=== PATIENT | female | born 1940 | race Caucasian/White ===

== ENCOUNTER 2018-07-30 18:30 | Inpatient (IN) | payer MEDICARE, BC ==
[2018-07-30] MEDS ORDERED: Budesonide 0.5 MG/2 ML Neb Susp NEB ONE (18:52)
[2018-07-30] MEDS ORDERED: Albuterol/Ipratropium 3.0-0.5 MG/3 ML Neb Soln NEB ONE (18:52)
--- NOTE | 2018-07-30 18:52 | EDM.PDOC ---
ED HPI GENERAL MEDICAL PROBLEM - General Chief Complaint: General Stated Complaint: fever, chills, cough, immunosupressed Time Seen by Provider: 07/30/18 18:45 Source of Information: Reports: Patient, Old Records ([facility] chart/EMR), Other ([facility], Family friend Christen) History Limitations: Reports: No Limitations - History of Present Illness INITIAL COMMENTS - FREE TEXT/NARRATIVE: Patient was brought to the emergency room via private automobile by her friend for evaluation of progressive nonspecific fatigue, weakness, fever and chills over the last couple of days. Patient is currently under therapy for multiple myeloma and did receive a Zometa infusion 2 days ago at [facility] in [place]. The patient denies any known exposure to infection, recent use of antipyretic medication, etc. She did receive her influenza booster this season. The patient denies any chest pain/pressure, heart flutter, dizziness, orthostasis, orthopnea, diaphoresis, paresthesias, recent decreased exercise tolerance, or any other anginal-type symptoms. No recent history of abdominal pain, heartburn, diarrhea, melena, gross hematochezia, or any food intolerance, including fatty foods, etc. with normal bowel movement yesterday. The patient did have 3 episodes of small emesis yesterday with no current nausea, however. She denies any gross hematuria, colic, or other UTI symptoms. The patient has had a nonproductive cough over the last few days with no history of significant dyspnea, wheezing, distress, etc.. She does complain of non-specific left 3/10 shoulder pain with no history of injury, etc. Onset: Gradual Onset Date: 07/30/18 Onset Time: 20:00 Duration: Getting Worse Location: Reports: Upper Extremity, Left (As above). Denies: Head, Face, Neck, Chest, Abdomen, Back, Pelvis, Upper Extremity, Right, Lower Extremity, Left, Lower Extremity, Right, Generalized, Radiates to Quality: Reports: Ache, Same as Previous Episode Severity: Mild Improves with: Reports: Rest Worsens with: Reports: Movement Context: Reports: Other (As above). Denies: Sick Contact, Trauma Associated Symptoms: Reports: Cough, Fever/Chills, Nausea/Vomiting, Weakness ( As above). 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) Left Shoulder Pain Score (Numeric/FACES): 3 - Related Data Allergies Allergy/AdvReac Type Severity Reaction Status Date / Time No Known Allergies Allergy Verified 07/30/18 18:53 Home Meds: Home Meds Calcium Carbonate/Vitamin D3 [Calcium 600-Vit D3 400 Tablet] 2 tab PO QAM [History] Fluticasone/Salmeterol [Advair 100-50] 1 puff INH BID 09/01/14 [History] Calcium Carbonate [Tums Extra Strength] 1,500 mg PO BEDTIME PRN 09/02/14 [ History] Latanoprost [Xalatan 0.005% Ophth Soln] 1 drop EYELF BEDTIME 04/26/16 [History] Multivitamins [Tab-A-Johnnie] 1 tab PO DAILY 04/26/16 [History] Pantoprazole [ProTONIX] 40 mg PO DAILY 04/26/16 [History] Acyclovir 1 tab PO BID 07/30/18 [History] Albuterol Sulfate [Proventil Hfa] 1 puff INH Q4H PRN 07/30/18 [History] Albuterol/Ipratropium [DuoNeb 3.0-0.5 MG/3 ML] 1 vial INH Q4H PRN 07/30/18 [ History] Aspirin 325 mg PO DAILY 07/30/18 [History] Cholecalciferol (Vitamin D3) [Vitamin D3] 2,000 mg PO DAILY 07/30/18 [History] Ketorolac [Acular 0.5% Ophth Soln] 1 drop EYELF TID 07/30/18 [History] Lenalidomide [Revlimid] 10 mg PO DAILY 07/30/18 [History] Penicillin V Potassium 500 mg PO BID 07/30/18 [History] Prednisolone Acetate/Pf [Prednisolone Acet 1% Eye Drop] 1 drop EYELF TID [History] Timolol Maleate [Timoptic 0.25% Ophth Soln] 1 drop EYELF DAILY 07/30/18 [History ] Past Medical History HEENT History: Reports: Cataract, Glaucoma, Impaired Vision, Other (See Below). Denies: Allergic Rhinitis, Hard of Hearing, Macular Degeneration, Retinal Detachment Other HEENT History: She wears glasses. Cardiovascular History: Denies: Afib, Aneurysm, Arrhythmia, Blood Clots/VTE/DVT , CAD, Heart Failure, Heart Murmur, High Cholesterol, Hypertension, RI, Syncope Respiratory History: Reports: Bronchitis, Recurrent, COPD, Intubation, Previous , Pneumonia, Recurrent. Denies: Asthma, Intubation, Difficult, PE, Pneumothorax , Pulmonary Fibrosis, Sleep Apnea, TB Gastrointestinal History: Reports: Chronic Diarrhea, Colon Polyp, Diverticulosis , GERD, Other (See Below). Denies: Bowel Obstruction, Celiac Disease, Cholelithiasis, Chronic Constipation, Fecal Incontinence, GI Bleed, Hepatitis, Inflammatory Bowel Disease, Irritable Bowel Syndrome, Jaundice, Pancreatitis Other Gastrointestinal History: Sigmoid diverticulosis. Recurrent benign rectal polyps in the rectal area. LFTs elevation of unknown etiology. Genitourinary History: Reports: None. 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 Denies: Dysfunctional Uterine Bleeding, Endometriosis, Spontaneous : 3 Para: 3 LMP (Approximate): Other (See Below) Other PRIVATE INQUIRY AGENT History: Menopause at about age 51. Full term without complications during pregnancies or deliveries Musculoskeletal History: Reports: Arthritis, Back Pain, Chronic, Neck Pain, Chronic, Osteoarthritis, Osteoporosis. Denies: Fracture, Gout, RA, SLE Neurological History: Reports: None. Denies: Cerebral Aneurysms, Concussion, CVA, Headaches, Chronic, Head Trauma, Migraines, MS, Neuropathy, Peripheral, Parkinson's, Seizure, TIA Psychiatric History: Reports: None. Denies: Abuse, Victim of, ADD, ADHD, Anxiety, Depression, Psych Hospitalization(s), PTSD, Suicide Attempt, Suicidal Ideation Endocrine/Metabolic History: Reports: Osteopenia, Osteoporosis, Other (See Below ). Denies: Diabetes, Gestational, Diabetes, Type I, Diabetes, Type II, Diabetes Mellitus, Type 3c, Hypothyroidism, IDDM Other Endocrine/Metabolic History: Hypokalemia. Hyponatremia. Hypoalbuminemia. Hematologic History: Reports: Other (See Below). Denies: Anemia, Blood Transfusion(s), Iron Deficiency Other Hematologic History: Thrombocytopenia. Immunologic History: Reports: Immunosuppression, Other (See Below). Denies: AIDS, HIV, SLE Other Immunologic History: Immunosuppression secondary to current chemotherapy for multiple myeloma. Oncologic (Cancer) History: Reports: Other (See Below). Denies: Basal Cell Carcinoma, Breast, Cervix, Colon, Hodgkin's Lymphoma, Leukemia, Lung, Lymphoma, Malignant Melanoma, Non-Hodgkin's Lymphoma, Ovarian, Squamous Cell Carcinoma, Uterine Other Oncologic History: Multiple myeloma diagnosed in May 2016. Dermatologic History: Reports: None. Denies: Eczema, Psoriasis - Infectious Disease History Infectious Disease History: Reports: Chicken Pox, Influenza (Influenza in September 2017.), Measles, Mumps, Rubella. Denies: C-Difficile, Meningitis, Mononucleosis , MRSA, Pertussis (Whooping Cough), Rheumatic Fever, Scarlet Fever, Shingles, TB , VRE - Past Surgical History Head Surgeries/Procedures: Reports: None HEENT Surgical History: Reports: Cataract Surgery, Eye Surgery, Oral Surgery, Other (See Below). Denies: Adenoidectomy, Laser Surgery, LASIK, Naso-Sinus Surgery, Tonsillectomy Other HEENT Surgeries/Procedures: Bilateral cataract and glaucoma surgery with right eye on 06/25/18 in the left eye on 07/09/18. Multiple teeth extractions. Cardiovascular Surgical History: Reports: None. Denies: Varicose Respiratory Surgical History: Reports: Other (See Below). Denies: Thoracentesis Other Respiratory Surgeries/Procedures: Right-sided bronchoscopy on 04/09/18. GI Surgical History: Reports: Colonoscopy, EGD, Polypectomy, Other (See Below). Denies: Appendectomy, Cholecystectomy, Hernia, Abdominal, Hernia, Inguinal, Hernia Repair/Other Other GI Surgeries/Procedures: Rectal polypectomy on 09/02/14 and 04/26/16 with EGD and colonoscopy on those days. Previous colonoscopy on 01/11/05. Possible sigmoidoscopy on 11/06/1999 Female Surgical History: Reports: Tubal Ligation, Other (See Below). Denies : Section, D&C, Hysterectomy, Oophorectomy, Salpingo-Oophorectomy Other Female Surgeries/Procedures: Bilateral tubal ligation in 1979 no other female surgeries Endocrine Surgical History: Reports: None. Denies: Thyroid Biopsy Neurological Surgical History: Reports: None. Denies: C-Spine, Discectomy, Laminectomy, Lumbar Spine, Sacral Spine, Spinal Fusion, Thoracic Spine, Vertebroplasty Musculoskeletal Surgical History: Reports: Arthroscopic Procedure, Shoulder Surgery. Denies: Carpal Tunnel, Ganglion Cyst, Joint Replacement, ORIF, Shoulder Replacement Oncologic Surgical History: Reports: None Dermatological Surgical History: Reports: None - Past Imaging History Past Imaging History: Reports: CAT Scan (CT of the chest on 06/06/18 and 03/27/18. ), DEXA Scan (01/02/13), Mammogram (Last mammogram on 03/01/17.), PET (Whole body PET scan on 03/18/17.), PFT (06/06/18.), Ultrasound (Left breast ultrasound on ), Venous Doppler (Left leg on 08/05/17.) Social & Family History - Family History HEENT: Reports: Glaucoma, Macular Degeneration, Other (See Below). Denies: Retinal Detachment Other HEENT Family History: Sister with glaucoma. Sisters 2 with macular degeneration. Cardiac: Reports: High Cholesterol, Other (See Below). Denies: Afib, Aneurysm, Arrhythmia, Blood Clots/VTE/DVT, CAD, Heart Failure, Hypertension, RI, PVD/COD, Syncope Other Cardiac Family History: Sisters 2 with hyperlipidemia. Respiratory: Reports: COPD, Other (See Below). Denies: Asthma, PE, Pneumothorax , Sleep Apnea Other Respiratory Family Hisory: Mother with history of COPD and tobacco use GI: Reports: None, Colon Polyps. Denies: Celiac Disease, Cholelithiasis, GI bleed, Inflammatory Bowel Disease, Irritable Bowel Syndrome, PUD : Reports: None. Denies: Renal Calculus, Renal Disease/Insufficiency OBGYN: Reports: None. Denies: Endometriosis, Fibroids, Recurrent Spontaneous Musculoskeletal: Reports: None. Denies: Gout, RA, SLE Neurological: Reports: Migraines, Other (See Below). Denies: Alzheimers Disease , Cerebral Aneurysms, CVA, Dementia, MS, Parkinson's, Seizure, TIA Other Neurological Family History: Sister with migraines. Psychiatric: Reports: None. Denies: Abuse, Victim of, ADD, ADHD, Anxiety, Depression, Psych Hospitalization(s), Psychosis, Suicide Attempt Endocrine/Metabolic: Reports: None. Denies: Diabetes, Gestational, Diabetes, Type I, Diabetes, type II, Diabetes Mellitus, Type 3c, Hypothyroidism, IDDM Hematologic: Reports: None. Denies: Anemia, SLE Immunologic: Reports: None. Denies: AIDS, HIV, SLE Dermatologic: Reports: None. Denies: Eczema, Psoriasis Oncologic: Reports: Colon, Leukemia, Liver, Other (See Below). Denies: Breast, Cervix, Hodgkin's Lymphoma, Lymphoma, Non-Hodgkin's Lymphoma, Ovarian, Skin, Uterine Other Oncologic Family History: Mother with colon cancer however fatal leukemia at age 65. Mother with fatal liver cancer at age 78. - Tobacco Use Smoking Status *Q: Never Smoker Tobacco Use Within Last Twelve Months: No Used Tobacco, but Quit: No Smoking Cessation Information Provided To Patient: No Second Hand Smoke Exposure: No Second Hand Smoke Education Provided: No - Caffeine Use Caffeine Use: Reports: Coffee (2 cups per day). Denies: Energy Drinks, Soda, Tea - Alcohol Use Alcohol Use History: Yes Days Per Week of Alcohol Use: 0 Number of Drinks Per Day: 1 Number of Drinks Per Day Comment: One glass of wine usually for holidays and special occasions. No previous DWIs, problems with alcohol abuse, etc. Total Drinks Per Week: 0 Alcohol Use in Last Twelve Months: Yes Alcohol Use Frequency: Rarely - Recreational Drug Use Recreational Drug Use: No Drug Use in Last 12 Months: No Recreational Drug Type: Denies: Amphetamines (Speed), Cocaine, Heroin, Inhalants (Glues, Solvents, Aerosols), LSD (Acid), Marijuana/Hashish, Methamphetamine, Morphine, Oxycodone - Living Situation & Occupation Living situation: Reports: (1960, 3 children.), with Family () Occupation: Employed (Retired [employer]) ED ROS GENERAL - Review of Systems Review Of Systems: ROS reveals no pertinent complaints other than HPI. ED EXAM, GENERAL - Physical Exam Exam: See Below Exam Limited By: No Limitations General Appearance: Alert, WD/WN, No Apparent Distress Eye Exam: Bilateral Eye: EOMI, Normal Inspection (No nystagmus), PERRL Ears: Normal External Exam, Normal Canal, Hearing Grossly Normal, Normal TMs Nose: Normal Mucosa, No Blood, Clear Rhinorrhea (Mild bilateral) Throat/Mouth: Normal Lips, Normal Gums, Normal Voice, No Airway Compromise. No : Normal Teeth (Multiple missing teeth lowers with no acute infection or caries) , Normal Oropharynx (Trace erythema in the posterior pharynx), Dysphagia, Perioral Cyanosis Head: Atraumatic, Normocephalic. No: Facial Swelling, Facial Tenderness, Sinus Tenderness Neck: Supple, Non-Tender, Full Range of Motion, Carotid Bruit (Mild bilateral carotid bruits). No: Lymphadenopathy (L), Lymphadenopathy (R), Thyromegaly Respiratory/Chest: No Respiratory Distress, No Accessory Muscle Use, Chest Non- Tender, Rales (Mild diffuse Diffuse bilateral rales particularly on the basis). No: Rhonchi, Wheezing, Pleural Rub, Retractions Cardiovascular: Normal Peripheral Pulses, Regular Rate, Rhythm, No Edema, No Gallop, No JVD, No Murmur, No Rub. No: Gallop/S3, Gallop/S4, Friction Rub Peripheral Pulses: 2+: Radial (L), Radial (R), Dorsalis Pedis (L), Dorsalis Pedis (R) GI/Abdominal: Normal Bowel Sounds, Soft, Non-Tender, No Organomegaly, No Distention, No Abnormal Bruit, No Mass, Pelvis Stable. No: Guarding (Female) Exam: Deferred Rectal (Female) Exam: Deferred Back Exam: Full Range of Motion, Other (Mild kyphosis). No: CVA Tenderness (L) , CVA Tenderness (R), Muscle Spasm Extremities: Normal Inspection, Normal Range of Motion, Non-Tender, No Pedal Edema, Normal Capillary Refill. No: Nelly's Sign Neurological: Alert, Oriented, CN II-XII Intact, Normal Cognition, Normal Gait, Normal Reflexes (Negative Babinski's), No Motor/Sensory Deficits Psychiatric: Normal Affect, Normal Mood Skin Exam: Warm, Dry, Intact, Normal Color, No Rash. No: Diaphoretic, Wound/ Incision Lymphatic: No Adenopathy EKG INTERPRETATION EKG Date: 07/30/18 Time: 20:02 Rhythm: NSR Rate (Beats/Min): 85 [place]: Normal (Cardiac axisleft) P-Wave: Enlarged (Moderate Diffuse biphasic P waves with resolution of previous mild pulmonary hypertension by EKG) QRS: Normal (0.09 seconds with new T-wave inversion in lead V1) ST-T: Normal QT: Normal [place]/PQ Interval: 0.18 seconds Comparison: Change From Previous EKG (As above since 01/02/05) EKG Interpretation Comments: 1. No acute ischemic changes 2. Left atrial enlargement Course - Vital Signs Last Recorded V/S: Last Vital Signs Temp 39.0 C H 07/30/18 19:30 Pulse 86 07/30/18 18:36 Resp 24 H 07/30/18 20:15 BP 133/56 L 07/30/18 20:15 Pulse Ox 97 07/30/18 20:15 Vital Signs - 24 hr 07/30/18 07/30/18 07/30/18 18:35 18:36 18:45 Temperature [ 37.6 C Oral] Temperature [ Temporal] Pulse, 86 Peripheral [ Brachial] Respiratory 20 27 H Rate Blood Pressure 157/56 H 134/47 L [Upper Arm] O2 Sat by Pulse 89 L 95 Oximetry O2 Sat by Pulse 95 Oximetry [ Nasal Cannula] 07/30/18 07/30/18 07/30/18 18:53 19:00 19:15 Temperature [ Oral] Temperature [ Temporal] Pulse, Peripheral [ Brachial] Respiratory 22 H 23 H Rate Blood Pressure 127/46 L 113/60 [Upper Arm] O2 Sat by Pulse 94 L 95 Oximetry O2 Sat by Pulse 94 L Oximetry [ Nasal Cannula] 07/30/18 07/30/18 07/30/18 19:30 19:45 20:00 Temperature [ Oral] Temperature [ 39.0 C H Temporal] Pulse, Peripheral [ Brachial] Respiratory 26 H 24 H 25 H Rate Blood Pressure 124/43 L 134/50 L 135/53 L [Upper Arm] O2 Sat by Pulse 95 94 L 97 Oximetry O2 Sat by Pulse Oximetry [ Nasal Cannula] 07/30/18 20:15 Temperature [ Oral] Temperature [ Temporal] Pulse, Peripheral [ Brachial] Respiratory 24 H Rate Blood Pressure 133/56 L [Upper Arm] O2 Sat by Pulse 97 Oximetry O2 Sat by Pulse Oximetry [ Nasal Cannula] - Orders/Labs/Meds Orders: Active Orders 24 hr Category Date Time Status Cardiac Monitoring [RC] CONTINUOUS Care 07/30/18 18:53 Active Communication Order [RC] ROUTINE Care 07/30/18 18:53 Active EKG Documentation Completion [RC] ASDIRECTED Care 07/30/18 20:00 Active Oxygen Therapy, ED [RC] CONTINUOUS Care 07/30/18 18:53 Active Peripheral IV Care [RC] . DIRECTED Care 07/30/18 18:54 Active Pulse Oximetry [RC] CONTINUOUS Care 07/30/18 18:53 Active Up With Assistance [RC] ASDIRECTED Care 07/30/18 18:53 Active Nothing Per Oral Diet [DIET] Diet 07/30/18 Breakfast Active Chest 2V [CR] Stat Exams 07/30/18 18:53 Taken CULTURE BLOOD [BC] Stat Lab 07/30/18 19:05 Received CULTURE BLOOD [BC] Stat Lab 07/30/18 19:35 Received CULTURE SPUTUM + SMEAR [RM] Urgent Lab 07/30/18 18:53 Ordered CULTURE STREP A CONFIRMATION [RM] Stat Lab 07/30/18 19:24 Results CULTURE URINE [RM] Routine Lab 07/30/18 18:53 Ordered STREP SCRN A RAPID W CULT CONF [RM] Stat Lab 07/30/18 19:24 Results URINALYSIS W/MICROSCOPIC [UA W/MICROSCOPIC] [URIN] Lab 07/30/18 18:57 Ordered Routine Piperacillin/Tazobactam [Zosyn] 3.375 gm Med 07/30/18 19:45 Active Sodium Chloride 0.9% [Normal Saline] 100 ml IV Q6H Sodium Chloride 0.9% [Saline Flush] Med 07/30/18 18:52 Active 10 ml FLUSH ASDIRECTED PRN Blood Culture x2 Reflex Set [OM.PC] Stat Oth 07/30/18 18:53 Ordered Obtain Past Medical Record [OM.PC] Stat Oth 07/30/18 18:53 Active Peripheral IV Insertion Adult [OM.PC] Stat Oth 07/30/18 18:53 Ordered Resuscitation Status Routine Resus Stat 07/30/18 18:52 Ordered EKG 12 Lead [EK] Stat Ther 07/30/18 20:00 Ordered Medication Orders Piperacillin Sod/Tazobactam (Sod 3.375 gm/ Sodium Chloride) 100 mls @ 200 mls/ hr IV Q6H JEFFERY Last Admin: 07/30/18 19:56 Dose: 200 mls/hr Sodium Chloride (Saline Flush) 10 ml FLUSH ASDIRECTED PRN PRN Reason: Keep Vein Open Last Admin: 07/30/18 19:56 Dose: 10 ml Labs: Laboratory Tests 07/30/18 07/30/18 07/30/18 Range/Units 19:05 19:05 19:05 WBC 1.3 L* (4.0-10.2) K/uL RBC 3.19 L (3.77-5.09) M/uL Hgb 10.7 L (11.7-15.5) g/dL Hct 31.7 L (34.0-46.0) % MCV 99.4 H D (84.0-98.0) fL MCH 33.5 H (28.2-33.3) pg MCHC 33.8 (31.7-36.0) g/dL RDW 15.6 H (11.2-14.1) % Plt Count 68 L D (150-350) K/uL Neut % (Auto) 55.2 (45.0-80.0) % Lymph % (Auto) 32.8 (10.0-50.0) % Johnson % (Auto) 12.0 (2.0-14.0) % Eos % (Auto) 0.0 (0.0-5.0) % Baso % (Auto) 0.0 (0.0-2.0) % Neut # (Auto) 0.69 L (1.40-7.00) K/uL Lymph # (Auto) 0.41 L (0.50-3.50) K/uL Johnson # (Auto) 0.15 (0.00-1.00) K/uL Eos # (Auto) 0.00 (0.00-0.50) K/uL Baso # (Auto) 0.00 (0.00-0.20) K/uL PT 12.0 (9.5-12.0) SEC INR 1.1 APTT 30.7 (21.0-31.3) SEC D-Dimer, Quantitative 349 (0-400) ng/mL Sodium (136-145) mmol/L Potassium (3.5-5.1) mmol/L Chloride (98-107) mmol/L Carbon Dioxide (21.0-32.0) mmol/L BUN (7-18) mg/dL Creatinine (0.51-1.17) mg/dL Est Cr Clr Drug Dosing mL/min Estimated GFR (MDRD) mL/min Glucose (74-106) mg/dL Lactic Acid (0.4-2.0) mmol/L Calcium (8.5-10.1) mg/dL Magnesium (1.8-2.4) mg/dL Total Bilirubin (0.2-1.0) mg/dL Direct Bilirubin (0.0-0.2) mg/dL Indirect Bilirubin AST (15-37) U/L ALT (12-78) U/L Alkaline Phosphatase (46-116) IU/L Creatine Kinase (26-308) U/L Creatine Kinase Index (0.0-2.5) % CK-MB (CK-2) (0.00-3.60) ng/mL Troponin I (0.000-0.056) ng/mL NT-Pro-B Natriuret Pep (0-125) pg/mL Total Protein (6.4-8.2) g/dL Albumin (3.4-5.0) g/dL TSH, Ultra Sensitive (0.358-3.740) mIU/mL 07/30/18 07/30/18 07/30/18 Range/Units 19:05 19:05 19:05 WBC (4.0-10.2) K/uL RBC (3.77-5.09) M/uL Hgb (11.7-15.5) g/dL Hct (34.0-46.0) % MCV (84.0-98.0) fL MCH (28.2-33.3) pg MCHC (31.7-36.0) g/dL RDW (11.2-14.1) % Plt Count (150-350) K/uL Neut % (Auto) (45.0-80.0) % Lymph % (Auto) (10.0-50.0) % Johnson % (Auto) (2.0-14.0) % Eos % (Auto) (0.0-5.0) % Baso % (Auto) (0.0-2.0) % Neut # (Auto) (1.40-7.00) K/uL Lymph # (Auto) (0.50-3.50) K/uL Johnson # (Auto) (0.00-1.00) K/uL Eos # (Auto) (0.00-0.50) K/uL Baso # (Auto) (0.00-0.20) K/uL PT (9.5-12.0) SEC INR APTT (21.0-31.3) SEC D-Dimer, Quantitative (0-400) ng/mL Sodium 134 L (136-145) mmol/L Potassium 3.7 (3.5-5.1) mmol/L Chloride 97 L (98-107) mmol/L Carbon Dioxide 25.0 (21.0-32.0) mmol/L BUN 16 (7-18) mg/dL Creatinine 0.98 (0.51-1.17) mg/dL Est Cr Clr Drug Dosing 40.40 mL/min Estimated GFR (MDRD) 55 mL/min Glucose 121 H (74-106) mg/dL Lactic Acid 1.9 (0.4-2.0) mmol/L Calcium 8.7 (8.5-10.1) mg/dL Magnesium 1.3 L (1.8-2.4) mg/dL Total Bilirubin 1.4 H 1.4 H (0.2-1.0) mg/dL Direct Bilirubin 0.4 H (0.0-0.2) mg/dL Indirect Bilirubin 1.0 AST 16 (15-37) U/L ALT 19 (12-78) U/L Alkaline Phosphatase 54 (46-116) IU/L Creatine Kinase 104 (26-308) U/L Creatine Kinase Index 0.5 (0.0-2.5) % CK-MB (CK-2) 0.50 (0.00-3.60) ng/mL Troponin I 0.002 (0.000-0.056) ng/mL NT-Pro-B Natriuret Pep 4171 H (0-125) pg/mL Total Protein 7.2 (6.4-8.2) g/dL Albumin 3.3 L (3.4-5.0) g/dL TSH, Ultra Sensitive 0.931 (0.358-3.740) mIU/mL Blood cultures 2 were collected Microbiology 07/30/18 19:24 Group A Streptococcus Rapid Screen - Final Throat NEGATIVE STREP A SCREEN 07/30/18 19:24 Influenza Type A Antigen Screen - Final Nasal, Unspecified NEGATIVE INFLUENZA A VIRUS AG Influenza Type B Antigen Screen - Final NEGATIVE INFLUENZA B VIRUS AG Meds: Medications Generic Name Dose Route Start Last Admin Trade Name Freq PRN Reason Stop Dose Admin Piperacillin Sod/Tazobactam 100 mls @ 200 mls/hr 07/30/18 19:45 07/30/18 19: 56 Sod 3.375 gm/ Sodium Chloride IV 200 mls/hr Q6H JEFFERY Administration Sodium Chloride 10 ml 07/30/18 18:52 07/30/18 19:56 Saline Flush FLUSH 10 ml ASDIRECTED PRN Administration Keep Vein Open Discontinued Medications Generic Name Dose Route Start Last Admin Trade Name Luizq PRN Reason Stop Dose Admin Acetaminophen 650 mg 07/30/18 19:58 07/30/18 20:07 Tylenol PO 07/30/18 19:59 650 mg NOW ONE Administration Albuterol/Ipratropium 3 ml 07/30/18 18:52 07/30/18 19:29 Duoneb 3.0-0.5 Mg/3 Ml NEB 07/30/18 18:53 3 ml ONETIME ONE Administration Budesonide 0.5 mg 07/30/18 18:52 07/30/18 19:29 Pulmicort NEB 07/30/18 18:53 0.5 mg ONETIME ONE Administration - Radiology Interpretation Free Text/Narrative:: equipment monitor phototypesetting shows normal sinus rhythm with heart rate in the 80s with no ectopy or arrhythmia. Chest x-ray, PA and lateral, shows evidence of moderate COPD changes with probable right middle lobe, right lower lobe and left lower lobe pulmonary infiltrates versus atelectasis. Moderate osteoarthritic and osteoporotic changes in the thoracic spine with some mild kyphosis. No cardiomegaly, CHF, or pneumothorax. Moderate aortic valve calcification. Departure - Departure Time of Disposition: 20:40 Disposition: Admitted As Inpatient 67 Condition: Fair Clinical Impression: Bilateral pneumonia, COPD (chronic obstructive pulmonary disease), Leukopenia, Thrombocytopenia, Peptic reflux disease, Osteoarthritis, Hypomagnesemia, Hyponatremia, Hypoalbuminemia, CHF (congestive heart failure), Hyperbilirubinemia, Multiple myeloma, Anemia - Discharge Information *PRESCRIPTION DRUG MONITORING PROGRAM REVIEWED*: Not Applicable *COPY OF PRESCRIPTION DRUG MONITORING REPORT IN PATIENT PHYLLIS: Not Applicable Referrals: Arianna Her NP [Primary Care Provider] - Forms: ED Department Discharge Care Plan Goals: See plan - Problem List & Annotations (1) Bilateral pneumonia SNOMED Code(s): 244907880 Code(s): J18.9 - PNEUMONIA, UNSPECIFIED ORGANISM Status: Acute Priority: High Current Visit: Yes Onset Date: 07/30/18 Annotation/Comment:: Bilateral lower lobe pneumonia based on clinical exam and chest x-ray, although chest x-ray findings are somewhat borderline. Note significant leukopenia with current chemotherapy as above with Zosyn therapy initiated in the emergency room. Additional Levaquin therapy will be started shortly after admission. Blood cultures 2 were collected. Attempt to obtain a sputum specimen [place]. Neupogen to be given on admission secondary to significant leukopenia as above. Qualifiers: Pneumonia type: due to unspecified organism Lung location: lower lobe of lung Qualified Code(s): J18.1 - Lobar pneumonia, unspecified organism (2) Leukopenia SNOMED Code(s): 88739926, 321639378 Code(s): D72.819 - DECREASED WHITE BLOOD CELL COUNT, UNSPECIFIED Status: Chronic Priority: High Current Visit: Yes Onset Date: 07/30/18 Annotation/Comment:: As above. Note sepsis risk but no clinical evidence of sepsis at this time. Additional UA with culture and sensitivity has been ordered. Qualifiers: Leukopenia type: neutropenia Neutropenia type: secondary to cancer chemotherapy Qualified Code(s): D70.1 - Agranulocytosis secondary to cancer chemotherapy; T45.1X5A - Adverse effect of antineoplastic and immunosuppressive drugs, initial encounter (3) COPD (chronic obstructive pulmonary disease) SNOMED Code(s): 58273286 Code(s): J44.9 - CHRONIC OBSTRUCTIVE PULMONARY DISEASE, UNSPECIFIED Status : Chronic Priority: Medium Current Visit: Yes Annotation/Comment:: Triple nebulizer therapy given in the emergency room with aggressive nebulizer therapy during this hospitalization. Note recent PFTs on 06/06/18. Qualifiers: COPD type: COPD with acute lower respiratory infection Qualified Code(s): J44.0 - Chronic obstructive pulmonary disease with acute lower respiratory infection (4) CHF (congestive heart failure) SNOMED Code(s): 08229536 Code(s): I50.9 - HEART FAILURE, UNSPECIFIED Status: Acute Priority: High Current Visit: Yes Onset Date: 07/30/18 Annotation/Comment:: No chest pain or anginal type symptoms as above. Other than moderate BNP elevation cardiac enzymes and EKG are otherwise normal. No significant CHF by today's chest x-ray. Cardiac enzymes and EKG to be repeated in the a.m. Consider echocardiogram on an outpatient basis. Initiate low-dose Lasix therapy for now with additional IV fluids with discretion secondary to current fever, etc. Qualifiers: Heart failure type: unspecified Heart failure chronicity: acute Qualified Code(s): I50.9 - Heart failure, unspecified (5) Osteoarthritis SNOMED Code(s): 323865317 Code(s): M19.90 - UNSPECIFIED OSTEOARTHRITIS, UNSPECIFIED SITE Status: Chronic Priority: Medium Current Visit: Yes Annotation/Comment:: Stable by history with exception of nonspecific left shoulder pain with no history of injury, etc. Observe for now. Note no chest pain or anginal type symptoms as above. Qualifiers: Osteoarthritis location: multiple joints Osteoarthritis type: primary Qualified Code(s): M15.0 - Primary generalized (osteo)arthritis (6) Peptic reflux disease SNOMED Code(s): 365665074 Code(s): K21.9 - GASTRO-ESOPHAGEAL REFLUX DISEASE WITHOUT ESOPHAGITIS Status: Chronic Priority: Medium Current Visit: Yes Annotation/Comment:: Stable by history. (7) Thrombocytopenia SNOMED Code(s): 175131802 Code(s): D69.6 - THROMBOCYTOPENIA, UNSPECIFIED Status: Chronic Priority: Medium Current Visit: Yes Annotation/Comment:: History of chronic thrombocytopenia with current chemotherapy as above. Observe for now no evidence of acute bleeding and only mild anemia at this time. (8) Hyperbilirubinemia SNOMED Code(s): 78377036 Code(s): E80.6 - OTHER DISORDERS OF BILIRUBIN METABOLISM Status: Acute Priority: Medium Current Visit: Yes Onset Date: 07/30/18 Annotation/ Comment:: Observe for now with direct and indirect bilirubin results as above. Repeat blood work in the a.m. (9) Hypomagnesemia SNOMED Code(s): 424006830 Code(s): E83.42 - HYPOMAGNESEMIA Status: Acute Priority: Medium Current Visit: Yes Onset Date: 07/30/18 Annotation/Comment:: Initiate magnesium oxide therapy. (10) Hyponatremia SNOMED Code(s): 61567613 Code(s): E87.1 - HYPO-OSMOLALITY AND HYPONATREMIA Status: Acute Priority : Medium Current Visit: Yes Onset Date: 07/30/18 Annotation/Comment:: Likely Secondary to CHF. IV fluids with caution (11) Hypoalbuminemia SNOMED Code(s): 697145470 Code(s): E88.09 - OTH DISORDERS OF PLASMA-PROTEIN METABOLISM, NEC Status: Acute Priority: Medium Current Visit: Yes Onset Date: 07/30/18 Annotation/Comment:: Long history of hypoalbuminemia at least for 1 year per her medical records. Initiate high protein Glucerna supplements twice a day as snacks. (12) Multiple myeloma SNOMED Code(s): 434816355 Code(s): C90.00 - MULTIPLE MYELOMA NOT HAVING ACHIEVED REMISSION Status: Chronic Priority: High Current Visit: Yes Annotation/Comment:: Currently under therapy. Qualifiers: Multiple myeloma remission status: not in remission Qualified Code(s): C90.00 - Multiple myeloma not having achieved remission (13) Anemia SNOMED Code(s): 386997697 Code(s): D64.9 - ANEMIA, UNSPECIFIED Status: Acute Priority: Medium Current Visit: Yes Onset Date: 07/30/18 Annotation/Comment:: Iron studies, vitamin B 12 level, and folic acid level in the a.m. Note vitamin B 12 level was normal on 08/02/17 Qualifiers: Anemia type: unspecified type Qualified Code(s): D64.9 - Anemia, unspecified - Problem List Review Problem List Initiated/Reviewed/Updated: Yes - My Orders Last 24 Hours: My Active Orders 07/30/18 18:52 Sodium Chloride 0.9% [Saline Flush] 10 ml FLUSH ASDIRECTED PRN Resuscitation Status Routine 07/30/18 18:53 Cardiac Monitoring [RC] CONTINUOUS Communication Order [RC] ROUTINE Oxygen Therapy, ED [RC] CONTINUOUS Pulse Oximetry [RC] CONTINUOUS Up With Assistance [RC] ASDIRECTED Chest 2V [CR] Stat CULTURE SPUTUM + SMEAR [RM] Urgent CULTURE URINE [RM] Routine Blood Culture x2 Reflex Set [OM.PC] Stat Obtain Past Medical Record [OM.PC] Stat Peripheral IV Insertion Adult [OM.PC] Stat 07/30/18 18:54 Peripheral IV Care [RC] . DIRECTED 07/30/18 18:57 URINALYSIS W/MICROSCOPIC [UA W/MICROSCOPIC] [URIN] Routine 07/30/18 19:05 CULTURE BLOOD [BC] Stat 07/30/18 19:24 CULTURE STREP A CONFIRMATION [] Stat STREP SCRN A RAPID W CULT CONF [RM] Stat 07/30/18 19:35 CULTURE BLOOD [BC] Stat 07/30/18 19:45 Piperacillin/Tazobactam [Zosyn] 3.375 gm Sodium Chloride 0.9% [Normal Saline] 100 ml IV Q6H 07/30/18 20:00 EKG Documentation Completion [RC] ASDIRECTED EKG 12 Lead [EK] Stat 07/30/18 Breakfast Nothing Per Oral Diet [DIET] - Assessment/Plan Admission H&P: Please use this note as an admission H&P Last 24 Hours: My Active Orders 07/30/18 18:52 Sodium Chloride 0.9% [Saline Flush] 10 ml FLUSH ASDIRECTED PRN Resuscitation Status Routine 07/30/18 18:53 Cardiac Monitoring [RC] CONTINUOUS Communication Order [RC] ROUTINE Oxygen Therapy, ED [RC] CONTINUOUS Pulse Oximetry [RC] CONTINUOUS Up With Assistance [RC] ASDIRECTED Chest 2V [CR] Stat CULTURE SPUTUM + SMEAR [RM] Urgent CULTURE URINE [RM] Routine Blood Culture x2 Reflex Set [OM.PC] Stat Obtain Past Medical Record [OM.PC] Stat Peripheral IV Insertion Adult [OM.PC] Stat 07/30/18 18:54 Peripheral IV Care [RC] . DIRECTED 07/30/18 18:57 URINALYSIS W/MICROSCOPIC [UA W/MICROSCOPIC] [URIN] Routine 07/30/18 19:05 CULTURE BLOOD [BC] Stat 07/30/18 19:24 CULTURE STREP A CONFIRMATION [RM] Stat STREP SCRN A RAPID W CULT CONF [RM] Stat 07/30/18 19:35 CULTURE BLOOD [BC] Stat 07/30/18 19:45 Piperacillin/Tazobactam [Zosyn] 3.375 gm Sodium Chloride 0.9% [Normal Saline] 100 ml IV Q6H 07/30/18 20:00 EKG Documentation Completion [RC] ASDIRECTED EKG 12 Lead [EK] Stat 07/30/18 Breakfast Nothing Per Oral Diet [DIET] Assessment:: As above Plan: As above. Extensive precautions were given to the patient, who is in agreement with the treatment plan. [facility] [place] in [place].. The patient will require about 3-4 days of inpatient/acute care secondary to multiple health problems as above.
[2018-07-30] MEDS: Piperacillin/Tazobactam 3.375 GM in Sodium Chloride 0.9% 100 ML IV SCH (19:56)
[2018-07-30] MEDS: Sodium Chloride 0.9% 10 ML Syringe FLUSH PRN (19:56)
[2018-07-30] MEDS ORDERED: Acetaminophen 325 MG Tab PO ONE (19:58)
[2018-07-30] MEDS ORDERED: Calcium Carbonate 750 MG Tab.Chew PO PRN (20:46)
[2018-07-30] MEDS ORDERED: Albuterol/Ipratropium 3.0-0.5 MG/3 ML Neb Soln NEB PRN (20:49)
[2018-07-30] MEDS ORDERED: Albuterol 0.083% 2.5 MG/3 ML Neb Soln NEB PRN (20:49)
[2018-07-30] MEDS ORDERED: Levofloxacin/Dextrose 5%-Water 500 MG in Premix Bag 1 BAG IV SCH (21:00)
[2018-07-30] MEDS: Potassium Chloride 20 MEQ Tab.ER PO SCH (21:34)
[2018-07-30] MEDS: Magnesium Oxide 400 MG Tab PO SCH (21:34)
[2018-07-30] MEDS: Furosemide 40 MG/4 ML VIAL IVPUSH SCH (21:35)
[2018-07-30] MEDS: Sodium Chloride 0.9% 10 ML Syringe FLUSH SCH (21:35)
[2018-07-30] MEDS: prednisoLONE Acetate 1% Ophth Susp 5 ML Bottle**OWN MED EYELF SCH (21:39)
[2018-07-30] MEDS: Pantoprazole 40 MG Vial IVPUSH SCH (21:39)
[2018-07-30] MEDS: Lactated Ringers 1,000 ML IV SCH (23:02)
[2018-07-30] MEDS: Temazepam 15 MG Cap PO PRN (23:02)
[2018-07-31] MEDS: Sodium Chloride 0.9% 10 ML Syringe FLUSH PRN ×3 (01:30→13:37)
[2018-07-31] MEDS: Piperacillin/Tazobactam 3.375 GM in Sodium Chloride 0.9% 100 ML IV SCH ×4 (01:30→19:56)
[2018-07-31] MEDS: Albuterol/Ipratropium 3.0-0.5 MG/3 ML Neb Soln NEB SCH ×5 (01:30→19:56)
[2018-07-31] MEDS: Acyclovir 200 MG Cap PO SCH ×2 (07:57→17:04)
[2018-07-31] MEDS: Magnesium Oxide 400 MG Tab PO SCH (07:58)
[2018-07-31] MEDS: Calcium Carbonate/Vitamin D3 1500 MG-400 Units Tab PO SCH (07:58)
[2018-07-31] MEDS: Dextromethorphan/guaiFENesin 600-30 MG Tab.ER PO SCH ×2 (07:58→17:04)
[2018-07-31] MEDS: Potassium Chloride 20 MEQ Tab.ER PO SCH (07:59)
[2018-07-31] MEDS ORDERED: Non-Formulary Medication 1 Each (Lenalidomide [Revlimid] 10 MG) PO SCH (08:00)
[2018-07-31] MEDS ORDERED: Cholecalciferol (Vitamin D3) 1,000 Unit Tab PO SCH (08:00)
[2018-07-31] MEDS ORDERED: Budesonide 0.5 MG/2 ML Neb Susp NEB SCH (08:00)
[2018-07-31] MEDS ORDERED: Aspirin 325 MG Tab PO SCH (08:00)
[2018-07-31] MEDS ORDERED: Multivitamin Tab PO SCH (08:00)
[2018-07-31] MEDS: Furosemide 40 MG/4 ML VIAL IVPUSH SCH (08:03)
[2018-07-31] MEDS: Sodium Chloride 0.9% 10 ML Syringe FLUSH SCH ×2 (08:05→20:07)
[2018-07-31] MEDS: Timolol Maleate 0.25% Ophth Soln 5 ML Bottle EYELF SCH (08:05)
[2018-07-31] MEDS: prednisoLONE Acetate 1% Ophth Susp 5 ML Bottle**OWN MED EYELF SCH ×5 (08:14→20:00)
[2018-07-31] MEDS: Pantoprazole 40 MG Vial IVPUSH SCH (08:43)
[2018-07-31] MEDS ORDERED: Ondansetron 4 MG/2 ML SDV IVPUSH PRN (09:01)
[2018-07-31] MEDS ORDERED: Loperamide 2 MG Tab PO ONE (11:02)
[2018-07-31] MEDS: KETOROLAC 0.5% EYELF SCH ×4 (11:12→19:59)
[2018-07-31] MEDS: OPTH EYELF SCH ×4 (11:12→19:59)
[2018-07-31] MEDS: Loperamide 2 MG Tab PO PRN ×2 (12:09→22:09)
--- NOTE | 2018-07-31 14:17 | PCM.PN ---
- General Info Date of Service: 07/31/18 Functional Status: Reports: Other (emesis and diarrhea) - Review of Systems General: Reports: Fever, Weakness, Malaise, Chills HEENT: Reports: No Symptoms Pulmonary: Reports: No Symptoms Cardiovascular: Reports: No Symptoms Gastrointestinal: Reports: Decreased Appetite, Diarrhea Genitourinary: Reports: No Symptoms Musculoskeletal: Reports: Other (generalized myalgias) Skin: Reports: No Symptoms Neurological: Reports: Weakness Psychiatric: Reports: No Symptoms - Patient Data Vitals - Most Recent: Last Vital Signs Temp 98.6 F 07/31/18 12:00 Pulse 80 07/31/18 12:00 Resp 16 07/31/18 12:00 BP 100/48 L 07/31/18 12:00 Pulse Ox 95 07/31/18 12:00 Weight - Most Recent: 136 lb I&O - Last 24 Hours: Intake & Output 07/30/18 07/31/18 07/31/18 22:59 06:59 14:59 Intake Total 240 920 200 Output Total 750 300 Balance 240 170 -100 Lab Results Last 24 Hours: Laboratory Results - last 24 hr 07/30/18 07/30/18 07/30/18 Range/Units 19:05 19:05 19:05 WBC 1.3 L* (4.0-10.2) K/uL RBC 3.19 L (3.77-5.09) M/uL Hgb 10.7 L (11.7-15.5) g/dL Hct 31.7 L (34.0-46.0) % MCV 99.4 H D (84.0-98.0) fL MCH 33.5 H (28.2-33.3) pg MCHC 33.8 (31.7-36.0) g/dL RDW 15.6 H (11.2-14.1) % Plt Count 68 L D (150-350) K/uL Neut % (Auto) 55.2 (45.0-80.0) % Lymph % (Auto) 32.8 (10.0-50.0) % [place] % (Auto) 12.0 (2.0-14.0) % Eos % (Auto) 0.0 (0.0-5.0) % Baso % (Auto) 0.0 (0.0-2.0) % Neut # (Auto) 0.69 L (1.40-7.00) K/uL Lymph # (Auto) 0.41 L (0.50-3.50) K/uL [place] # (Auto) 0.15 (0.00-1.00) K/uL Eos # (Auto) 0.00 (0.00-0.50) K/uL Baso # (Auto) 0.00 (0.00-0.20) K/uL PT 12.0 (9.5-12.0) SEC INR 1.1 APTT 30.7 (21.0-31.3) SEC D-Dimer, Quantitative 349 (0-400) ng/mL Sodium (136-145) mmol/L Potassium (3.5-5.1) mmol/L Chloride (98-107) mmol/L Carbon Dioxide (21.0-32.0) mmol/L BUN (7-18) mg/dL Creatinine (0.51-1.17) mg/dL Est Cr Clr Drug Dosing mL/min Estimated GFR (MDRD) mL/min Glucose (74-106) mg/dL Lactic Acid (0.4-2.0) mmol/L Calcium (8.5-10.1) mg/dL Magnesium (1.8-2.4) mg/dL Iron (50-175) ug/dL TIBC (250-450) ug/dL % Saturation Ferritin (8-388) ng/mL Total Bilirubin (0.2-1.0) mg/dL Direct Bilirubin (0.0-0.2) mg/dL Indirect Bilirubin AST (15-37) U/L ALT (12-78) U/L Alkaline Phosphatase (46-116) IU/L Creatine Kinase (26-308) U/L Creatine Kinase Index (0.0-2.5) % CK-MB (CK-2) (0.00-3.60) ng/mL Troponin I (0.000-0.056) ng/mL C-Reactive Protein (<=0.9) mg/dL NT-Pro-B Natriuret Pep (0-125) pg/mL Total Protein (6.4-8.2) g/dL Albumin (3.4-5.0) g/dL Vitamin B12 (193-986) pg/mL Folate (8.6-58.9) ng/mL TSH, Ultra Sensitive (0.358-3.740) mIU/mL Specimen Type Urine Color Urine Appearance Urine pH (5.0-9.0) Ur Specific [place] (1.005-1.030) Urine Protein (NEGATIVE) mg/dL Urine Glucose (UA) (NEGATIVE) mg/dL Urine Ketones (NEGATIVE) mg/dL Urine Occult Blood (NEGATIVE) Urine Nitrite (NEGATIVE) Urine Bilirubin (NEGATIVE) Urine Urobilinogen (0.2-1.0) E.U./dL Ur Leukocyte Esterase (NEGATIVE) Urine RBC /HPF Urine WBC /HPF Ur Epithelial Cells /LPF Urine Bacteria (NONE TO FEW) /HPF 07/30/18 07/30/18 07/30/18 Range/Units 19:05 19:05 19:05 WBC (4.0-10.2) K/uL RBC (3.77-5.09) M/uL Hgb (11.7-15.5) g/dL Hct (34.0-46.0) % MCV (84.0-98.0) fL MCH (28.2-33.3) pg MCHC (31.7-36.0) g/dL RDW (11.2-14.1) % Plt Count (150-350) K/uL Neut % (Auto) (45.0-80.0) % Lymph % (Auto) (10.0-50.0) % [place] % (Auto) (2.0-14.0) % Eos % (Auto) (0.0-5.0) % Baso % (Auto) (0.0-2.0) % Neut # (Auto) (1.40-7.00) K/uL Lymph # (Auto) (0.50-3.50) K/uL [place] # (Auto) (0.00-1.00) K/uL Eos # (Auto) (0.00-0.50) K/uL Baso # (Auto) (0.00-0.20) K/uL PT (9.5-12.0) SEC INR APTT (21.0-31.3) SEC D-Dimer, Quantitative (0-400) ng/mL Sodium 134 L (136-145) mmol/L Potassium 3.7 (3.5-5.1) mmol/L Chloride 97 L (98-107) mmol/L Carbon Dioxide 25.0 (21.0-32.0) mmol/L BUN 16 (7-18) mg/dL Creatinine 0.98 (0.51-1.17) mg/dL Est Cr Clr Drug Dosing 40.40 mL/min Estimated GFR (MDRD) 55 mL/min Glucose 121 H (74-106) mg/dL Lactic Acid 1.9 (0.4-2.0) mmol/L Calcium 8.7 (8.5-10.1) mg/dL Magnesium 1.3 L (1.8-2.4) mg/dL Iron (50-175) ug/dL TIBC (250-450) ug/dL % Saturation Ferritin (8-388) ng/mL Total Bilirubin 1.4 H 1.4 H (0.2-1.0) mg/dL Direct Bilirubin 0.4 H (0.0-0.2) mg/dL Indirect Bilirubin 1.0 AST 16 (15-37) U/L ALT 19 (12-78) U/L Alkaline Phosphatase 54 (46-116) IU/L Creatine Kinase 104 (26-308) U/L Creatine Kinase Index 0.5 (0.0-2.5) % CK-MB (CK-2) 0.50 (0.00-3.60) ng/mL Troponin I 0.002 (0.000-0.056) ng/mL C-Reactive Protein (<=0.9) mg/dL NT-Pro-B Natriuret Pep 4171 H (0-125) pg/mL Total Protein 7.2 (6.4-8.2) g/dL Albumin 3.3 L (3.4-5.0) g/dL Vitamin B12 (193-986) pg/mL Folate (8.6-58.9) ng/mL TSH, Ultra Sensitive 0.931 (0.358-3.740) mIU/mL Specimen Type Urine Color Urine Appearance Urine pH (5.0-9.0) Ur Specific [place] (1.005-1.030) Urine Protein (NEGATIVE) mg/dL Urine Glucose (UA) (NEGATIVE) mg/dL Urine Ketones (NEGATIVE) mg/dL Urine Occult Blood (NEGATIVE) Urine Nitrite (NEGATIVE) Urine Bilirubin (NEGATIVE) Urine Urobilinogen (0.2-1.0) E.U./dL Ur Leukocyte Esterase (NEGATIVE) Urine RBC /HPF Urine WBC /HPF Ur Epithelial Cells /LPF Urine Bacteria (NONE TO FEW) /HPF 07/30/18 07/31/18 07/31/18 Range/Units 23:05 07:10 07:10 WBC 1.1 L* (4.0-10.2) K/uL RBC 2.75 L (3.77-5.09) M/uL Hgb 9.2 L D (11.7-15.5) g/dL Hct 27.3 L (34.0-46.0) % MCV 99.3 H (84.0-98.0) fL MCH 33.5 H (28.2-33.3) pg MCHC 33.7 (31.7-36.0) g/dL RDW 15.6 H (11.2-14.1) % Plt Count 56 L (150-350) K/uL Neut % (Auto) 47.3 (45.0-80.0) % Lymph % (Auto) 41.1 (10.0-50.0) % [place] % (Auto) 11.6 (2.0-14.0) % Eos % (Auto) 0.0 (0.0-5.0) % Baso % (Auto) 0.0 (0.0-2.0) % Neut # (Auto) 0.53 L (1.40-7.00) K/uL Lymph # (Auto) 0.46 L (0.50-3.50) K/uL [place] # (Auto) 0.13 (0.00-1.00) K/uL Eos # (Auto) 0.00 (0.00-0.50) K/uL Baso # (Auto) 0.00 (0.00-0.20) K/uL PT (9.5-12.0) SEC INR APTT (21.0-31.3) SEC D-Dimer, Quantitative (0-400) ng/mL Sodium 134 L (136-145) mmol/L Potassium 3.5 (3.5-5.1) mmol/L Chloride 98 (98-107) mmol/L Carbon Dioxide 26.0 (21.0-32.0) mmol/L BUN 22 H (7-18) mg/dL Creatinine 1.15 (0.51-1.17) mg/dL Est Cr Clr Drug Dosing 34.43 mL/min Estimated GFR (MDRD) 46 mL/min Glucose 121 H (74-106) mg/dL Lactic Acid (0.4-2.0) mmol/L Calcium 8.2 L (8.5-10.1) mg/dL Magnesium (1.8-2.4) mg/dL Iron (50-175) ug/dL TIBC (250-450) ug/dL % Saturation Ferritin (8-388) ng/mL Total Bilirubin 1.3 H (0.2-1.0) mg/dL Direct Bilirubin (0.0-0.2) mg/dL Indirect Bilirubin AST 14 L (15-37) U/L ALT 18 (12-78) U/L Alkaline Phosphatase 41 L (46-116) IU/L Creatine Kinase 93 (26-308) U/L Creatine Kinase Index 0.4 (0.0-2.5) % CK-MB (CK-2) 0.40 (0.00-3.60) ng/mL Troponin I 0.000 (0.000-0.056) ng/mL C-Reactive Protein 24.3 H (<=0.9) mg/dL NT-Pro-B Natriuret Pep 4522 H (0-125) pg/mL Total Protein 6.3 L (6.4-8.2) g/dL Albumin 2.8 L (3.4-5.0) g/dL Vitamin B12 506 (193-986) pg/mL Folate 19.5 (8.6-58.9) ng/mL TSH, Ultra Sensitive (0.358-3.740) mIU/mL Specimen Type Urincc Urine Color Yellow Urine Appearance Slightly cloudy Urine pH 6.0 (5.0-9.0) Ur Specific [place] 1.015 (1.005-1.030) Urine Protein Trace H (NEGATIVE) mg/dL Urine Glucose (UA) Negative (NEGATIVE) mg/dL Urine Ketones Trace H (NEGATIVE) mg/dL Urine Occult Blood Small H (NEGATIVE) Urine Nitrite Negative (NEGATIVE) Urine Bilirubin Negative (NEGATIVE) Urine Urobilinogen 0.2 (0.2-1.0) E.U./dL Ur Leukocyte Esterase Negative (NEGATIVE) Urine RBC 5-10 H /HPF Urine WBC 0-5 /HPF Ur Epithelial Cells Moderate H /LPF Urine Bacteria Few (NONE TO FEW) /HPF 07/31/18 Range/Units 07:10 WBC (4.0-10.2) K/uL RBC (3.77-5.09) M/uL Hgb (11.7-15.5) g/dL Hct (34.0-46.0) % MCV (84.0-98.0) fL MCH (28.2-33.3) pg MCHC (31.7-36.0) g/dL RDW (11.2-14.1) % Plt Count (150-350) K/uL Neut % (Auto) (45.0-80.0) % Lymph % (Auto) (10.0-50.0) % [place] % (Auto) (2.0-14.0) % Eos % (Auto) (0.0-5.0) % Baso % (Auto) (0.0-2.0) % Neut # (Auto) (1.40-7.00) K/uL Lymph # (Auto) (0.50-3.50) K/uL [place] # (Auto) (0.00-1.00) K/uL Eos # (Auto) (0.00-0.50) K/uL Baso # (Auto) (0.00-0.20) K/uL PT (9.5-12.0) SEC INR APTT (21.0-31.3) SEC D-Dimer, Quantitative (0-400) ng/mL Sodium (136-145) mmol/L Potassium (3.5-5.1) mmol/L Chloride (98-107) mmol/L Carbon Dioxide (21.0-32.0) mmol/L BUN (7-18) mg/dL Creatinine (0.51-1.17) mg/dL Est Cr Clr Drug Dosing mL/min Estimated GFR (MDRD) mL/min Glucose (74-106) mg/dL Lactic Acid (0.4-2.0) mmol/L Calcium (8.5-10.1) mg/dL Magnesium (1.8-2.4) mg/dL Iron 15 L (50-175) ug/dL TIBC 245 L (250-450) ug/dL % Saturation 6.75486 Ferritin 335 (8-388) ng/mL Total Bilirubin (0.2-1.0) mg/dL Direct Bilirubin (0.0-0.2) mg/dL Indirect Bilirubin AST (15-37) U/L ALT (12-78) U/L Alkaline Phosphatase (46-116) IU/L Creatine Kinase (26-308) U/L Creatine Kinase Index (0.0-2.5) % CK-MB (CK-2) (0.00-3.60) ng/mL Troponin I (0.000-0.056) ng/mL C-Reactive Protein (<=0.9) mg/dL NT-Pro-B Natriuret Pep (0-125) pg/mL Total Protein (6.4-8.2) g/dL Albumin (3.4-5.0) g/dL Vitamin B12 (193-986) pg/mL Folate (8.6-58.9) ng/mL TSH, Ultra Sensitive (0.358-3.740) mIU/mL Specimen Type Urine Color Urine Appearance Urine pH (5.0-9.0) Ur Specific [place] (1.005-1.030) Urine Protein (NEGATIVE) mg/dL Urine Glucose (UA) (NEGATIVE) mg/dL Urine Ketones (NEGATIVE) mg/dL Urine Occult Blood (NEGATIVE) Urine Nitrite (NEGATIVE) Urine Bilirubin (NEGATIVE) Urine Urobilinogen (0.2-1.0) E.U./dL Ur Leukocyte Esterase (NEGATIVE) Urine RBC /HPF Urine WBC /HPF Ur Epithelial Cells /LPF Urine Bacteria (NONE TO FEW) /HPF Niall Results Last 24 Hours: Microbiology 07/31/18 02:10 Stool Occult Blood (NIALL) - Final Stool / Feces NEGATIVE OCCULT BLOOD 07/30/18 19:24 Group A Streptococcus Rapid Screen - Final Throat NEGATIVE STREP A SCREEN 07/30/18 19:24 Influenza Type A Antigen Screen - Final Nasal, Unspecified NEGATIVE INFLUENZA A VIRUS AG Influenza Type B Antigen Screen - Final NEGATIVE INFLUENZA B VIRUS AG Med Orders - Current: Current Medications Acetaminophen (Tylenol) 650 mg PO Q4H PRN PRN Reason: Pain (Mild 1-3)/fever Acyclovir (Zovirax) 400 mg PO BID [facility] Last Admin: 07/31/18 07:57 Dose: 400 mg Albuterol (Proventil Neb Soln) 2.5 mg NEB Q2H PRN PRN Reason: Dyspnea Albuterol/Ipratropium (Duoneb 3.0-0.5 Mg/3 Ml) 3 ml NEB Q4HRRT PRN PRN Reason: Dyspnea Albuterol/Ipratropium (Duoneb 3.0-0.5 Mg/3 Ml) 3 ml NEB Q6HRRT [facility] Last Admin: 07/31/18 13:36 Dose: 3 ml Calcium Carbonate (Caltrate 600+D 1500 Mg-400 Units) 2 tab PO QAM [facility] Last Admin: 07/31/18 07:58 Dose: 2 tab Calcium Carbonate/Glycine (Tums Extra Strength) 1,500 mg PO BEDTIME PRN PRN Reason: acid reflux Guaifenesin/Dextromethorphan (Mucinex Dm Er 600-30 Mg) 1 tab PO BID [facility] Last Admin: 07/31/18 07:58 Dose: 1 tab Piperacillin Sod/Tazobactam (Sod 3.375 gm/ Sodium Chloride) 100 mls @ 200 mls/ hr IV Q6H [facility] Last Admin: 07/31/18 13:36 Dose: 200 mls/hr Lactated Ringer's (Ringers, Lactated) 1,000 mls @ 75 mls/hr IV ASDIRECTED [facility] Last Admin: 07/30/18 23:02 Dose: 75 mls/hr Latanoprost (Xalatan 0.005% Ophth Soln) 0 ml EYELF BEDTIME [facility] Loperamide HCl (Imodium Ad) 2 mg PO ASDIRECTED PRN PRN Reason: Diarrhea Last Admin: 07/31/18 12:09 Dose: 2 mg Magnesium Oxide (Magnesium Oxide) 400 mg PO DAILY [facility] Last Admin: 07/31/18 07:58 Dose: 400 mg Ketorolac 0.5% Opth (SolnOwn Med) 1 drop EYELF TID [facility] Last Admin: 07/31/18 11:12 Dose: 1 drop Ondansetron HCl (Zofran) 4 mg IVPUSH Q6H PRN PRN Reason: Nausea/Vomiting Last Admin: 07/31/18 09:17 Dose: 4 mg Pantoprazole Sodium (Protonix Iv) 40 mg IVPUSH Q12H [facility] Last Admin: 07/31/18 08:43 Dose: 40 mg Prednisolone Acetate (Pred Forte 1% Ophth Susp) 0 ml EYELF TID [facility] Last Admin: 07/31/18 11:13 Dose: Not Given Sodium Chloride (Saline Flush) 10 ml FLUSH ASDIRECTED PRN PRN Reason: Keep Vein Open Last Admin: 07/31/18 13:37 Dose: 10 ml Sodium Chloride (Saline Flush) 10 ml FLUSH Q12HR [facility] Temazepam (Restoril) 15 mg PO BEDTIME PRN PRN Reason: Insomnia Last Admin: 07/30/18 23:02 Dose: 15 mg Timolol Maleate (Timoptic 0.25% Ophth Soln) 0 ml EYELF DAILY [facility] Last Admin: 07/31/18 08:05 Dose: Not Given Discontinued Medications Acetaminophen (Tylenol) 650 mg PO NOW ONE Stop: 07/30/18 19:59 Last Admin: 07/30/18 20:07 Dose: 650 mg Albuterol/Ipratropium (Duoneb 3.0-0.5 Mg/3 Ml) 3 ml NEB ONETIME ONE Stop: 07/30/18 18:53 Last Admin: 07/30/18 19:29 Dose: 3 ml Aspirin (Aspirin) 325 mg PO DAILY [facility] Last Admin: 07/31/18 07:58 Dose: 325 mg Budesonide (Pulmicort) 0.5 mg NEB ONETIME ONE Stop: 07/30/18 18:53 Last Admin: 07/30/18 19:29 Dose: 0.5 mg Budesonide (Pulmicort) 0.5 mg NEB BIDRT [facility] Last Admin: 07/31/18 07:57 Dose: 0.5 mg Cholecalciferol (Vitamin D3) 2,000 units PO DAILY [facility] Last Admin: 07/31/18 07:59 Dose: 2,000 units Furosemide (Lasix) 40 mg IVPUSH Q12H [facility] Last Admin: 07/31/18 08:03 Dose: 40 mg Levofloxacin/Dextrose 500 mg/ (Premix) 100 mls @ 100 mls/hr IV Q24H [facility] Last Admin: 07/30/18 21:37 Dose: 100 mls/hr Loperamide HCl (Imodium Ad) 4 mg PO ONETIME ONE Stop: 07/31/18 11:03 Last Admin: 07/31/18 11:12 Dose: 4 mg Multivitamins/Minerals/Vitamin C (Tab-A-Johnnie) 1 tab PO DAILY [facility] Last Admin: 07/31/18 07:57 Dose: 1 tab Non-Formulary Medication (Lenalidomide [Revlimid]) 10 mg PO DAILY [facility] Pegfilgrastim (Neulasta) 6 mg SUBCUT ONETIME ONE Stop: 07/30/18 20:53 Last Admin: 07/30/18 21:39 Dose: 6 mg Potassium Chloride (Klor-Con M20) 20 meq PO BID [facility] Last Admin: 07/31/18 07:59 Dose: 20 meq Sodium Chloride (Saline Flush) 10 ml FLUSH Q12H [facility] Last Admin: 07/31/18 08:05 Dose: 10 ml - Exam General: Alert, Cooperative, Mild Distress HEENT: Mucous Membr. Moist/[place] Neck: Trachea Midline, No JVD Lungs: Normal Respiratory Effort, Decreased Breath Sounds, Rhonchi, Wheezing Cardiovascular: Regular Rate, Regular Rhythm GI/Abdominal Exam: Normal Bowel Sounds, Soft, Non-Tender, No Distention (Female) Exam: Deferred Back Exam: Normal Inspection Extremities: Normal Inspection Skin: Warm, Dry, Intact Neurological: No New Focal Deficit Psy/Mental Status: Alert, Normal Affect, Normal Mood - Problem List & Annotations (1) Anemia SNOMED Code(s): 379507821 Code(s): D64.9 - ANEMIA, UNSPECIFIED Status: Acute Priority: Medium Current Visit: Yes Onset Date: 07/30/18 Qualifiers: Anemia type: unspecified type Qualified Code(s): D64.9 - Anemia, unspecified Annotation/Comment:: Iron studies,vitamin B 12 level, and folic acid level in the a.m. Note vitamin B 12 level was normal on 08/02/17 (2) Bilateral pneumonia SNOMED Code(s): 881044768 Code(s): J18.9 - PNEUMONIA, UNSPECIFIED ORGANISM Status: Acute Priority: High Current Visit: Yes Onset Date: 07/30/18 Qualifiers: Pneumonia type: due to unspecified organism Lung location: lower lobe of lung Qualified Code(s): J18.1 - Lobar pneumonia, unspecified organism Annotation/Comment:: Bilateral lower lobe pneumonia based on clinical exam and chest x-ray, although chest x-ray findings are somewhat borderline. Note significant leukopenia with current chemotherapy as above with Zosyn therapy initiated in the emergency room. Blood cultures 2 were collected. Attempt to obtain a sputum specimen [place]. Neupogen to be given on admission secondary to significant leukopenia as above. (3) Hypoalbuminemia SNOMED Code(s): 884705720 Code(s): E88.09 - OTH DISORDERS OF PLASMA-PROTEIN METABOLISM, NEC Status: Acute Priority: Medium Current Visit: Yes Onset Date: 07/30/18 Annotation/Comment:: Long history of hypoalbuminemia at least for 1 year per her medical records. Initiate high protein Glucerna supplements twice a day as snacks. (4) COPD (chronic obstructive pulmonary disease) SNOMED Code(s): 11869977 Code(s): J44.9 - CHRONIC OBSTRUCTIVE PULMONARY DISEASE, UNSPECIFIED Status : Chronic Priority: Medium Current Visit: Yes Qualifiers: COPD type: COPD with acute lower respiratory infection Qualified Code(s): J44.0 - Chronic obstructive pulmonary disease with acute lower respiratory infection Annotation/Comment:: Triple nebulizer therapy given in the emergency room with aggressive nebulizer therapy during this hospitalization. Note recent PFTs on . (5) Leukopenia SNOMED Code(s): 95828365, 457548322 Code(s): D72.819 - DECREASED WHITE BLOOD CELL COUNT, UNSPECIFIED Status: Chronic Priority: High Current Visit: Yes Onset Date: 07/30/18 Qualifiers: Leukopenia type: neutropenia Neutropenia type: secondary to cancer chemotherapy Qualified Code(s): D70.1 - Agranulocytosis secondary to cancer chemotherapy; T45.1X5A - Adverse effect of antineoplastic and immunosuppressive drugs, initial encounter Annotation/Comment:: As above. Note sepsis risk but no clinical evidence of sepsis at this time. Additional UA with culture and sensitivity has been ordered. (6) Multiple myeloma SNOMED Code(s): 006070962 Code(s): C90.00 - MULTIPLE MYELOMA NOT HAVING ACHIEVED REMISSION Status: Chronic Priority: High Current Visit: Yes Qualifiers: Multiple myeloma remission status: not in remission Qualified Code(s): C90.00 - Multiple myeloma not having achieved remission Annotation/Comment:: Currently under therapy. (7) Peptic reflux disease SNOMED Code(s): 010269127 Code(s): K21.9 - GASTRO-ESOPHAGEAL REFLUX DISEASE WITHOUT ESOPHAGITIS Status: Chronic Priority: Medium Current Visit: Yes Annotation/Comment:: Stable by history. (8) Thrombocytopenia SNOMED Code(s): 334112545 Code(s): D69.6 - THROMBOCYTOPENIA, UNSPECIFIED Status: Chronic Priority: Medium Current Visit: Yes Annotation/Comment:: History of chronic thrombocytopenia with current chemotherapy as above. Observe for now no evidence of acute bleeding and only mild anemia at this time. - Problem List Review Problem List Initiated/Reviewed/Updated: Yes - My Orders Last 24 Hours: My Active Orders 07/31/18 13:40 MRSA BY PCR [MREF] Routine 07/31/18 20:00 Sodium Chloride 0.9% [Saline Flush] 10 ml FLUSH Q12HR - Plan Plan:: 07/31/18 Angelina Colon MD Emesis this AM. Still with diarrhea but does have chronic loose stools. Still not feeling well. [place] [facility] Dr. Griffith is her doctor.
[2018-07-31] MEDS: Lactated Ringers 1,000 ML IV SCH (15:38)
[2018-07-31] MEDS: Latanoprost 0.005% Ophth Soln 2.5 ML Bottle**OWN MED EYELF SCH (19:58)
[2018-08-01] MEDS: Sodium Chloride 0.9% 10 ML Syringe FLUSH PRN ×2 (03:56→14:08)
[2018-08-01] MEDS: Piperacillin/Tazobactam 3.375 GM in Sodium Chloride 0.9% 100 ML IV SCH ×4 (03:56→21:49)
[2018-08-01] MEDS: Lactated Ringers 1,000 ML IV SCH (06:15)
[2018-08-01] MEDS ORDERED: Pantoprazole 40 MG Vial IVPUSH SCH (08:00)
[2018-08-01] MEDS ORDERED: Non-Formulary Medication 1 Each (Loperamide Hcl [Imodium A-D] 2 MG) PO SCH (08:00)
[2018-08-01] MEDS: Calcium Carbonate/Vitamin D3 1500 MG-400 Units Tab PO SCH (08:17)
[2018-08-01] MEDS: Acyclovir 200 MG Cap PO SCH ×2 (08:18→17:04)
[2018-08-01] MEDS: Albuterol/Ipratropium 3.0-0.5 MG/3 ML Neb Soln NEB SCH ×4 (08:19→21:50)
[2018-08-01] MEDS: Dextromethorphan/guaiFENesin 600-30 MG Tab.ER PO SCH (08:19)
[2018-08-01] MEDS: Sodium Chloride 0.9% 10 ML Syringe FLUSH SCH ×2 (08:20→21:50)
[2018-08-01] MEDS: prednisoLONE Acetate 1% Ophth Susp 5 ML Bottle**OWN MED EYELF SCH ×3 (08:21→17:05)
[2018-08-01] MEDS: KETOROLAC 0.5% EYELF SCH ×3 (08:21→17:04)
[2018-08-01] MEDS: OPTH EYELF SCH ×3 (08:21→17:04)
[2018-08-01] MEDS: Timolol Maleate 0.25% Ophth Soln 5 ML Bottle EYELF SCH (08:22)
[2018-08-01] MEDS: Loperamide 2 MG Tab PO PRN ×2 (08:28→14:13)
[2018-08-01] MEDS ORDERED: Dextromethorphan/guaiFENesin 600-30 MG Tab.ER PO PRN (10:29)
[2018-08-01] MEDS: Potassium Chloride 10 MEQ Tab.ER PO SCH ×2 (12:16→17:04)
--- NOTE | 2018-08-01 16:06 | PCM.PN ---
- General Info Date of Service: 08/01/18 Functional Status: Reports: Pain Controlled, Tolerating Diet, Ambulating, Urinating - Review of Systems General: Reports: Weakness (improving) HEENT: Reports: No Symptoms Pulmonary: Reports: Cough Cardiovascular: Reports: No Symptoms Gastrointestinal: Reports: Diarrhea (improved) Genitourinary: Reports: No Symptoms Musculoskeletal: Reports: No Symptoms Skin: Reports: No Symptoms Neurological: Reports: Weakness Psychiatric: Reports: No Symptoms - Patient Data Vitals - Most Recent: Last Vital Signs Temp 98.4 F 08/01/18 15:36 Pulse 78 08/01/18 15:36 Resp 18 08/01/18 15:36 BP 114/55 L 08/01/18 15:36 Pulse Ox 100 08/01/18 15:36 Weight - Most Recent: 132 lb 11.2 oz I&O - Last 24 Hours: Intake & Output 08/01/18 08/01/18 08/01/18 06:59 14:59 22:59 Intake Total 1095 1930 Output Total 500 500 Balance 595 1430 Lab Results Last 24 Hours: Laboratory Results - last 24 hr 08/01/18 08/01/18 Range/Units 07:30 07:30 WBC 2.2 L (4.0-10.2) K/uL RBC 2.52 L (3.77-5.09) M/uL Hgb 8.4 L (11.7-15.5) g/dL Hct 25.4 L (34.0-46.0) % MCV 100.8 H (84.0-98.0) fL MCH 33.3 (28.2-33.3) pg MCHC 33.1 (31.7-36.0) g/dL RDW 15.2 H (11.2-14.1) % Plt Count 45 L* (150-350) K/uL Neut % (Auto) 58.3 (45.0-80.0) % Lymph % (Auto) 26.9 (10.0-50.0) % [place] % (Auto) 11.6 (2.0-14.0) % Eos % (Auto) 3.2 (0.0-5.0) % Baso % (Auto) 0.0 (0.0-2.0) % Neut # (Auto) 1.26 L (1.40-7.00) K/uL Lymph # (Auto) 0.58 (0.50-3.50) K/uL [place] # (Auto) 0.25 (0.00-1.00) K/uL Eos # (Auto) 0.07 (0.00-0.50) K/uL Baso # (Auto) 0.00 (0.00-0.20) K/uL Sodium 136 (136-145) mmol/L Potassium 3.2 L (3.5-5.1) mmol/L Chloride 101 (98-107) mmol/L Carbon Dioxide 27.5 (21.0-32.0) mmol/L BUN 14 (7-18) mg/dL Creatinine 1.06 (0.51-1.17) mg/dL Est Cr Clr Drug Dosing 37.34 mL/min Estimated GFR (MDRD) 50 mL/min Glucose 92 (74-106) mg/dL Calcium 7.6 L (8.5-10.1) mg/dL Total Bilirubin 1.0 (0.2-1.0) mg/dL AST 11 L (15-37) U/L ALT 15 (12-78) U/L Alkaline Phosphatase 40 L (46-116) IU/L C-Reactive Protein 22.8 H (<=0.9) mg/dL Total Protein 5.9 L (6.4-8.2) g/dL Albumin 2.3 L (3.4-5.0) g/dL Niall Results Last 24 Hours: Microbiology 07/31/18 13:40 MRSA (PCR) - Final Nasal, Unspecified 07/31/18 10:30 Clostridium difficile (PCR) - Final Stool / Feces 07/30/18 19:24 Quick Strep Confirmation Culture - Final Throat NO GROUP A STREP ISOLATED Group A Streptococcus Rapid Screen - Final NEGATIVE STREP A SCREEN 07/30/18 23:05 Urine Culture - Final Urine, Clean Catch MIXED WONG SUGGESTIVE OF CONTAMINATION. 07/30/18 19:35 Aerobic Blood Culture - Preliminary Blood - Venous - Lab Draw NO GROWTH AFTER 1 DAY Anaerobic Blood Culture - Preliminary NO GROWTH AFTER 1 DAY 07/30/18 19:05 Aerobic Blood Culture - Preliminary Blood - Venous NO GROWTH AFTER 1 DAY Anaerobic Blood Culture - Preliminary NO GROWTH AFTER 1 DAY Med Orders - Current: Current Medications Acetaminophen (Tylenol) 650 mg PO Q4H PRN PRN Reason: Pain (Mild 1-3)/fever Acyclovir (Zovirax) 400 mg PO BID [facility] Last Admin: 08/01/18 08:18 Dose: 400 mg Albuterol (Proventil Neb Soln) 2.5 mg NEB Q2H PRN PRN Reason: Dyspnea Albuterol/Ipratropium (Duoneb 3.0-0.5 Mg/3 Ml) 3 ml NEB QIDRT [facility] Last Admin: 08/01/18 12:16 Dose: 3 ml Calcium Carbonate (Caltrate 600+D 1500 Mg-400 Units) 2 tab PO QAM [facility] Last Admin: 08/01/18 08:17 Dose: 2 tab Calcium Carbonate/Glycine (Tums Extra Strength) 1,500 mg PO BEDTIME PRN PRN Reason: acid reflux Famotidine (Pepcid) 20 mg IVPUSH DAILY [facility] Guaifenesin/Dextromethorphan (Mucinex Dm Er 600-30 Mg) 1 tab PO BID PRN PRN Reason: Cough Piperacillin Sod/Tazobactam (Sod 3.375 gm/ Sodium Chloride) 100 mls @ 200 mls/ hr IV Q6H [facility] Last Admin: 08/01/18 14:06 Dose: 200 mls/hr Latanoprost (Xalatan 0.005% Ophth Soln) 0 ml EYELF BEDTIME [facility] Last Admin: 07/31/18 19:58 Dose: 1 drop Loperamide HCl (Imodium Ad) 2 mg PO ASDIRECTED PRN PRN Reason: Diarrhea Last Admin: 08/01/18 14:13 Dose: 2 mg Loperamide HCl (Imodium Ad) 2 mg PO DAILY [facility] Metronidazole (Flagyl) 500 mg PO Q8HR [facility] Ketorolac 0.5% Opth (SolnOwn Med) 1 drop EYELF TID [facility] Last Admin: 08/01/18 12:15 Dose: 1 drop Ondansetron HCl (Zofran) 4 mg IVPUSH Q6H PRN PRN Reason: Nausea/Vomiting Last Admin: 07/31/18 09:17 Dose: 4 mg Potassium Chloride (Klor-Con 10) 20 meq PO TID [facility] Last Admin: 08/01/18 12:16 Dose: 20 meq Prednisolone Acetate (Pred Forte 1% Ophth Susp) 0 ml EYELF TID [facility] Last Admin: 08/01/18 12:15 Dose: 1 drop Sodium Chloride (Saline Flush) 10 ml FLUSH ASDIRECTED PRN PRN Reason: Keep Vein Open Last Admin: 08/01/18 14:08 Dose: 10 ml Sodium Chloride (Saline Flush) 10 ml FLUSH Q12HR [facility] Last Admin: 08/01/18 08:20 Dose: 10 ml Temazepam (Restoril) 15 mg PO BEDTIME PRN PRN Reason: Insomnia Last Admin: 07/30/18 23:02 Dose: 15 mg Timolol Maleate (Timoptic 0.25% Ophth Soln) 0 ml EYELF DAILY [facility] Last Admin: 08/01/18 08:22 Dose: Not Given Discontinued Medications Acetaminophen (Tylenol) 650 mg PO NOW ONE Stop: 07/30/18 19:59 Last Admin: 07/30/18 20:07 Dose: 650 mg Albuterol/Ipratropium (Duoneb 3.0-0.5 Mg/3 Ml) 3 ml NEB ONETIME ONE Stop: 07/30/18 18:53 Last Admin: 07/30/18 19:29 Dose: 3 ml Albuterol/Ipratropium (Duoneb 3.0-0.5 Mg/3 Ml) 3 ml NEB Q4HRRT PRN PRN Reason: Dyspnea Albuterol/Ipratropium (Duoneb 3.0-0.5 Mg/3 Ml) 3 ml NEB Q6HRRT [facility] Last Admin: 07/31/18 13:36 Dose: 3 ml Aspirin (Aspirin) 325 mg PO DAILY [facility] Last Admin: 07/31/18 07:58 Dose: 325 mg Budesonide (Pulmicort) 0.5 mg NEB ONETIME ONE Stop: 07/30/18 18:53 Last Admin: 07/30/18 19:29 Dose: 0.5 mg Budesonide (Pulmicort) 0.5 mg NEB BIDRT [facility] Last Admin: 07/31/18 07:57 Dose: 0.5 mg Cholecalciferol (Vitamin D3) 2,000 units PO DAILY [facility] Last Admin: 07/31/18 07:59 Dose: 2,000 units Furosemide (Lasix) 40 mg IVPUSH Q12H [facility] Last Admin: 07/31/18 08:03 Dose: 40 mg Guaifenesin/Dextromethorphan (Mucinex Dm Er 600-30 Mg) 1 tab PO BID [facility] Last Admin: 08/01/18 08:19 Dose: 1 tab Levofloxacin/Dextrose 500 mg/ (Premix) 100 mls @ 100 mls/hr IV Q24H [facility] Last Admin: 07/30/18 21:37 Dose: 100 mls/hr Lactated Ringer's (Ringers, Lactated) 1,000 mls @ 75 mls/hr IV ASDIRECTED [facility] Last Admin: 08/01/18 06:15 Dose: 75 mls/hr Loperamide HCl (Imodium Ad) 4 mg PO ONETIME ONE Stop: 07/31/18 11:03 Last Admin: 07/31/18 11:12 Dose: 4 mg Magnesium Oxide (Magnesium Oxide) 400 mg PO DAILY [facility] Last Admin: 07/31/18 07:58 Dose: 400 mg Multivitamins/Minerals/Vitamin C (Tab-A-Johnnie) 1 tab PO DAILY [facility] Last Admin: 07/31/18 07:57 Dose: 1 tab Non-Formulary Medication (Lenalidomide [Revlimid]) 10 mg PO DAILY [facility] Non-Formulary Medication (Loperamide Hcl [Imodium A-D]) 2 mg PO DAILY [facility] Pantoprazole Sodium (Protonix Iv) 40 mg IVPUSH Q12H [facility] Last Admin: 07/31/18 08:43 Dose: 40 mg Pantoprazole Sodium (Protonix Iv) 40 mg IVPUSH DAILY [facility] Last Admin: 08/01/18 08:17 Dose: 40 mg Pegfilgrastim (Neulasta) 6 mg SUBCUT ONETIME ONE Stop: 07/30/18 20:53 Last Admin: 07/30/18 21:39 Dose: 6 mg Potassium Chloride (Klor-Con M20) 20 meq PO BID [facility] Last Admin: 07/31/18 07:59 Dose: 20 meq Sodium Chloride (Saline Flush) 10 ml FLUSH Q12H [facility] Last Admin: 07/31/18 08:05 Dose: 10 ml - Exam General: Alert, Cooperative, No Acute Distress HEENT: Mucous Membr. Moist/[place] Neck: Trachea Midline, No JVD Lungs: Normal Respiratory Effort, Decreased Breath Sounds, Rhonchi, Wheezing ( improved) Cardiovascular: Regular Rate, Regular Rhythm GI/Abdominal Exam: Normal Bowel Sounds, Soft, Non-Tender, No Distention (Female) Exam: Deferred Extremities: Normal Inspection, Non-Tender, No Pedal Edema Skin: Warm, Dry, Intact Neurological: No New Focal Deficit Psy/Mental Status: Alert, Normal Affect, Normal Mood - Problem List & Annotations (1) Anemia SNOMED Code(s): 713445144 Code(s): D64.9 - ANEMIA, UNSPECIFIED Status: Acute Priority: Medium Current Visit: Yes Onset Date: 07/30/18 Qualifiers: Anemia type: unspecified type Qualified Code(s): D64.9 - Anemia, unspecified Annotation/Comment:: Note vitamin B 12 level was normal on 08/02/17 (2) Bilateral pneumonia SNOMED Code(s): 450739217 Code(s): J18.9 - PNEUMONIA, UNSPECIFIED ORGANISM Status: Acute Priority: High Current Visit: Yes Onset Date: 07/30/18 Qualifiers: Pneumonia type: due to unspecified organism Lung location: lower lobe of lung Qualified Code(s): J18.1 - Lobar pneumonia, unspecified organism Annotation/Comment:: Bilateral lower lobe pneumonia based on clinical exam and chest x-ray, although chest x-ray findings are somewhat borderline. Note significant leukopenia with current chemotherapy as above with Zosyn therapy initiated in the emergency room. Blood cultures 2 were collected. Attempt to obtain a sputum specimen [place]. Neupogen to be given on admission secondary to significant leukopenia as above. (3) Hypoalbuminemia SNOMED Code(s): 531975917 Code(s): E88.09 - OTH DISORDERS OF PLASMA-PROTEIN METABOLISM, NEC Status: Acute Priority: Medium Current Visit: Yes Onset Date: 07/30/18 Annotation/Comment:: Long history of hypoalbuminemia at least for 1 year per her medical records. Initiate high protein Glucerna supplements twice a day as snacks. (4) COPD (chronic obstructive pulmonary disease) SNOMED Code(s): 44326640 Code(s): J44.9 - CHRONIC OBSTRUCTIVE PULMONARY DISEASE, UNSPECIFIED Status : Chronic Priority: Medium Current Visit: Yes Qualifiers: COPD type: COPD with acute lower respiratory infection Qualified Code(s): J44.0 - Chronic obstructive pulmonary disease with acute lower respiratory infection Annotation/Comment:: Triple nebulizer therapy given in the emergency room with aggressive nebulizer therapy during this hospitalization. Note recent PFTs on . (5) Leukopenia SNOMED Code(s): 56510065, 416344289 Code(s): D72.819 - DECREASED WHITE BLOOD CELL COUNT, UNSPECIFIED Status: Chronic Priority: High Current Visit: Yes Onset Date: 07/30/18 Qualifiers: Leukopenia type: neutropenia Neutropenia type: secondary to cancer chemotherapy Qualified Code(s): D70.1 - Agranulocytosis secondary to cancer chemotherapy; T45.1X5A - Adverse effect of antineoplastic and immunosuppressive drugs, initial encounter Annotation/Comment:: As above. Note sepsis risk but no clinical evidence of sepsis at this time. Additional UA with culture and sensitivity has been ordered. (6) Multiple myeloma SNOMED Code(s): 765689408 Code(s): C90.00 - MULTIPLE MYELOMA NOT HAVING ACHIEVED REMISSION Status: Chronic Priority: High Current Visit: Yes Qualifiers: Multiple myeloma remission status: not in remission Qualified Code(s): C90.00 - Multiple myeloma not having achieved remission Annotation/Comment:: Currently under therapy. (7) Peptic reflux disease SNOMED Code(s): 979421634 Code(s): K21.9 - GASTRO-ESOPHAGEAL REFLUX DISEASE WITHOUT ESOPHAGITIS Status: Chronic Priority: Medium Current Visit: Yes Annotation/Comment:: Stable by history. (8) Thrombocytopenia SNOMED Code(s): 907515835 Code(s): D69.6 - THROMBOCYTOPENIA, UNSPECIFIED Status: Chronic Priority: Medium Current Visit: Yes Annotation/Comment:: History of chronic thrombocytopenia with current chemotherapy as above. Observe for now no evidence of acute bleeding and only mild anemia at this time. (9) C. difficile diarrhea SNOMED Code(s): 5867025973687 Code(s): A04.72 - ENTEROCOLITIS D/T CLOSTRIDIUM DIFFICILE, NOT SPCF RECUR Status: Acute Priority: High Current Visit: Yes (10) Pancytopenia SNOMED Code(s): 673388595 Code(s): D61.818 - OTHER PANCYTOPENIA Status: Acute Priority: High Current Visit: Yes - Problem List Review Problem List Initiated/Reviewed/Updated: Yes - My Orders Last 24 Hours: My Active Orders 07/31/18 15:32 Communication Order [RC] ROUTINE 07/31/18 16:00 Albuterol/Ipratropium [DuoNeb 3.0-0.5 MG/3 ML] 3 ml NEB QIDRT 07/31/18 20:00 Sodium Chloride 0.9% [Saline Flush] 10 ml FLUSH Q12HR 07/31/18 Dinner Regular Diet [DIET] 08/01/18 07:30 MYCOPLASMA IGM RAPID [MREF] Routine 08/01/18 10:29 Dextromethorphan/guaiFENesin [Mucinex DM ER 600-30 MG] 1 tab PO BID PRN 08/01/18 10:37 Consult to Occupational Therapy [OT Evaluation and Treatment] [CONS] Routine Consult to Physical Therapy [PT Evaluation and Treatment] [CONS] Routine 08/01/18 12:00 Potassium Chloride [Klor-Con 10] 20 meq PO TID 08/01/18 16:00 metroNIDAZOLE [Flagyl] 500 mg PO Q8HR 08/02/18 05:11 Chest 2V [CR] Routine CBC WITH AUTO DIFF [HEME] DAILY CMP [COMPREHENSIVE METABOLIC PN,CMP] [CHEM] DAILY CRP [C-REACTIVE PROTEIN] [CHEM] DAILY 08/02/18 08:00 Famotidine [Pepcid] 20 mg IVPUSH DAILY Loperamide [Imodium AD] 2 mg PO DAILY 08/03/18 05:11 Chest 2V [CR] Routine CBC WITH AUTO DIFF [HEME] DAILY CMP [COMPREHENSIVE METABOLIC PN,CMP] [CHEM] DAILY CRP [C-REACTIVE PROTEIN] [CHEM] DAILY - Plan Plan:: 07/31/18 Angelina Colon MD Emesis this AM. Still with diarrhea but does have chronic loose stools. Still not feeling well. [place] [facility] Dr. Griffith is her doctor. 08/01/18 Angelina Colon MD Clinically feeling improved. Still coughing. C-diff +. Metronidazole started. Diarrhea improving. Continue IV zosyn for pneumonia. MRSA negative. Pancytopenia. WBC improving. Improved oral intake. ANC >~1200. Improved.
[2018-08-01] MEDS: metroNIDAZOLE 500 MG Tab PO SCH ×2 (16:11→23:02)
[2018-08-01] MEDS: Latanoprost 0.005% Ophth Soln 2.5 ML Bottle**OWN MED EYELF SCH (21:50)
[2018-08-01] MEDS: Temazepam 15 MG Cap PO PRN (21:50)
[2018-08-02] MEDS: Acetaminophen 325 MG Tab PO PRN ×2 (02:19→07:50)
[2018-08-02] MEDS: Piperacillin/Tazobactam 3.375 GM in Sodium Chloride 0.9% 100 ML IV SCH ×4 (07:39→20:22)
[2018-08-02] MEDS: Calcium Carbonate/Vitamin D3 1500 MG-400 Units Tab PO SCH (07:40)
[2018-08-02] MEDS: Albuterol/Ipratropium 3.0-0.5 MG/3 ML Neb Soln NEB SCH ×4 (07:40→19:27)
[2018-08-02] MEDS: Potassium Chloride 10 MEQ Tab.ER PO SCH ×3 (07:41→17:16)
[2018-08-02] MEDS: Acyclovir 200 MG Cap PO SCH ×2 (07:41→17:16)
[2018-08-02] MEDS: Loperamide 2 MG Tab PO SCH (07:41)
[2018-08-02] MEDS: OPTH EYELF SCH (07:41)
[2018-08-02] MEDS: metroNIDAZOLE 500 MG Tab PO SCH ×2 (07:41→15:57)
[2018-08-02] MEDS: KETOROLAC 0.5% EYELF SCH (07:41)
[2018-08-02] MEDS: Famotidine 20 MG/2 ML SDV IVPUSH SCH (07:42)
[2018-08-02] MEDS: Timolol Maleate 0.25% Ophth Soln 5 ML Bottle EYELF SCH (07:42)
[2018-08-02] MEDS: prednisoLONE Acetate 1% Ophth Susp 5 ML Bottle**OWN MED EYELF SCH (07:42)
[2018-08-02] MEDS: Sodium Chloride 0.9% 10 ML Syringe FLUSH SCH ×2 (07:55→20:24)
[2018-08-02] MEDS ORDERED: Menthol/Methyl Salicylate 85 GM Tube TOP PRN (08:03)
[2018-08-02 08:05] LABS: CHLORIDE,CL 105 mmol/L (98-107); SODIUM,NA 140 mmol/L (136-145)
--- NOTE | 2018-08-02 11:54 | PCM.PN ---
- General Info Date of Service: 08/02/18 Admission Dx/Problem (Free Text): Pneumonia +C. diff. Functional Status: Reports: Pain Controlled, Tolerating Diet, Ambulating, Urinating - Review of Systems General: Reports: No Symptoms (wants to go home!) HEENT: Reports: No Symptoms Pulmonary: Reports: Cough Cardiovascular: Reports: No Symptoms Gastrointestinal: Reports: No Symptoms (no further diarrhea) Genitourinary: Reports: No Symptoms Musculoskeletal: Reports: Shoulder Pain (had some left shoulder and right bunion pain last night and early this morning which responded to Tylenol) Skin: Reports: No Symptoms Neurological: Reports: No Symptoms Psychiatric: Reports: No Symptoms - Patient Data Vitals - Most Recent: Last Vital Signs Temp 97.8 F 08/02/18 07:35 Pulse 68 08/02/18 07:35 Resp 16 08/02/18 07:35 BP 102/48 L 08/02/18 07:35 Pulse Ox 98 08/02/18 07:35 Weight - Most Recent: 132 lb 11.2 oz I&O - Last 24 Hours: Intake & Output 08/01/18 08/02/18 08/02/18 22:59 06:59 14:59 Intake Total 530 Balance 530 Lab Results Last 24 Hours: Laboratory Results - last 24 hr 08/02/18 08/02/18 Range/Units 07:29 07:29 WBC 2.8 L (4.0-10.2) K/uL RBC 2.47 L (3.77-5.09) M/uL Hgb 8.3 L (11.7-15.5) g/dL Hct 25.2 L (34.0-46.0) % MCV 102.0 H (84.0-98.0) fL MCH 33.6 H (28.2-33.3) pg MCHC 32.9 (31.7-36.0) g/dL RDW 15.0 H (11.2-14.1) % Plt Count 37 L* (150-350) K/uL Neut % (Auto) 44.3 L (45.0-80.0) % Lymph % (Auto) 32.5 (10.0-50.0) % [place] % (Auto) 18.8 H (2.0-14.0) % Eos % (Auto) 4.0 (0.0-5.0) % Baso % (Auto) 0.4 (0.0-2.0) % Neut # (Auto) 1.23 L (1.40-7.00) K/uL Lymph # (Auto) 0.90 (0.50-3.50) K/uL [place] # (Auto) 0.52 (0.00-1.00) K/uL Eos # (Auto) 0.11 (0.00-0.50) K/uL Baso # (Auto) 0.01 (0.00-0.20) K/uL Sodium 140 (136-145) mmol/L Potassium 3.7 (3.5-5.1) mmol/L Chloride 105 (98-107) mmol/L Carbon Dioxide 28.0 (21.0-32.0) mmol/L BUN 8 (7-18) mg/dL Creatinine 0.89 (0.51-1.17) mg/dL Est Cr Clr Drug Dosing 44.47 mL/min Estimated GFR (MDRD) > 60 mL/min Glucose 97 (74-106) mg/dL Calcium 7.6 L (8.5-10.1) mg/dL Total Bilirubin 0.6 (0.2-1.0) mg/dL AST 12 L (15-37) U/L ALT 17 (12-78) U/L Alkaline Phosphatase 46 (46-116) IU/L C-Reactive Protein 13.6 H (<=0.9) mg/dL Total Protein 6.0 L (6.4-8.2) g/dL Albumin 2.4 L (3.4-5.0) g/dL Niall Results Last 24 Hours: Microbiology 08/01/18 07:30 Mycoplasma Serology - Final Blood 07/30/18 19:35 Aerobic Blood Culture - Preliminary Blood - Venous - Lab Draw NO GROWTH AFTER 2 DAYS Anaerobic Blood Culture - Preliminary NO GROWTH AFTER 2 DAYS 07/30/18 19:05 Aerobic Blood Culture - Preliminary Blood - Venous NO GROWTH AFTER 2 DAYS Anaerobic Blood Culture - Preliminary NO GROWTH AFTER 2 DAYS 07/31/18 13:40 MRSA (PCR) - Final Nasal, Unspecified 07/31/18 10:30 Clostridium difficile (PCR) - Final Stool / Feces 07/30/18 19:24 Quick Strep Confirmation Culture - Final Throat NO GROUP A STREP ISOLATED Group A Streptococcus Rapid Screen - Final NEGATIVE STREP A SCREEN 07/30/18 23:05 Urine Culture - Final Urine, Clean Catch MIXED WONG SUGGESTIVE OF CONTAMINATION. Med Orders - Current: Current Medications Acetaminophen (Tylenol) 650 mg PO Q4H PRN PRN Reason: Pain (Mild 1-3)/fever Last Admin: 08/02/18 07:50 Dose: 650 mg Acyclovir (Zovirax) 400 mg PO BID [facility] Last Admin: 08/02/18 07:41 Dose: 400 mg Albuterol (Proventil Neb Soln) 2.5 mg NEB Q2H PRN PRN Reason: Dyspnea Albuterol/Ipratropium (Duoneb 3.0-0.5 Mg/3 Ml) 3 ml NEB QIDRT [facility] Last Admin: 08/02/18 07:40 Dose: 3 ml Calcium Carbonate (Caltrate 600+D 1500 Mg-400 Units) 2 tab PO QAM [facility] Last Admin: 08/02/18 07:40 Dose: 2 tab Calcium Carbonate/Glycine (Tums Extra Strength) 1,500 mg PO BEDTIME PRN PRN Reason: acid reflux Famotidine (Pepcid) 20 mg IVPUSH DAILY [facility] Last Admin: 08/02/18 07:42 Dose: 20 mg Guaifenesin/Dextromethorphan (Mucinex Dm Er 600-30 Mg) 1 tab PO BID PRN PRN Reason: Cough Piperacillin Sod/Tazobactam (Sod 3.375 gm/ Sodium Chloride) 100 mls @ 200 mls/ hr IV Q6H [facility] Last Admin: 08/02/18 07:39 Dose: 200 mls/hr Latanoprost (Xalatan 0.005% Ophth Soln) 0 ml EYELF BEDTIME [facility] Last Admin: 08/01/18 21:50 Dose: 1 drop Loperamide HCl (Imodium Ad) 2 mg PO ASDIRECTED PRN PRN Reason: Diarrhea Last Admin: 08/01/18 14:13 Dose: 2 mg Loperamide HCl (Imodium Ad) 2 mg PO DAILY [facility] Last Admin: 08/02/18 07:41 Dose: 2 mg Methyl Salicylate (Icy Hot Cream) 0 gm TOP QID PRN PRN Reason: Pain (mild 1-3) Metronidazole (Flagyl) 500 mg PO Q8HR [facility] Last Admin: 08/02/18 07:41 Dose: 500 mg Ketorolac 0.5% Opth (SolnOwn Med) 1 drop EYELF TID [facility] Last Admin: 08/02/18 07:41 Dose: 1 drop Ondansetron HCl (Zofran) 4 mg IVPUSH Q6H PRN PRN Reason: Nausea/Vomiting Last Admin: 07/31/18 09:17 Dose: 4 mg Potassium Chloride (Klor-Con 10) 20 meq PO TID [facility] Last Admin: 08/02/18 07:41 Dose: 20 meq Prednisolone Acetate (Pred Forte 1% Ophth Susp) 0 ml EYELF TID [facility] Last Admin: 08/02/18 07:42 Dose: 1 drop Sodium Chloride (Saline Flush) 10 ml FLUSH ASDIRECTED PRN PRN Reason: Keep Vein Open Last Admin: 08/01/18 14:08 Dose: 10 ml Sodium Chloride (Saline Flush) 10 ml FLUSH Q12HR [facility] Last Admin: 08/02/18 07:55 Dose: 10 ml Temazepam (Restoril) 15 mg PO BEDTIME PRN PRN Reason: Insomnia Last Admin: 08/01/18 21:50 Dose: 15 mg Timolol Maleate (Timoptic 0.25% Ophth Soln) 0 ml EYELF DAILY [facility] Last Admin: 08/02/18 07:42 Dose: Not Given Discontinued Medications Acetaminophen (Tylenol) 650 mg PO NOW ONE Stop: 07/30/18 19:59 Last Admin: 07/30/18 20:07 Dose: 650 mg Albuterol/Ipratropium (Duoneb 3.0-0.5 Mg/3 Ml) 3 ml NEB ONETIME ONE Stop: 07/30/18 18:53 Last Admin: 07/30/18 19:29 Dose: 3 ml Albuterol/Ipratropium (Duoneb 3.0-0.5 Mg/3 Ml) 3 ml NEB Q4HRRT PRN PRN Reason: Dyspnea Albuterol/Ipratropium (Duoneb 3.0-0.5 Mg/3 Ml) 3 ml NEB Q6HRRT [facility] Last Admin: 07/31/18 13:36 Dose: 3 ml Aspirin (Aspirin) 325 mg PO DAILY [facility] Last Admin: 07/31/18 07:58 Dose: 325 mg Budesonide (Pulmicort) 0.5 mg NEB ONETIME ONE Stop: 07/30/18 18:53 Last Admin: 07/30/18 19:29 Dose: 0.5 mg Budesonide (Pulmicort) 0.5 mg NEB BIDRT [facility] Last Admin: 07/31/18 07:57 Dose: 0.5 mg Cholecalciferol (Vitamin D3) 2,000 units PO DAILY [facility] Last Admin: 07/31/18 07:59 Dose: 2,000 units Furosemide (Lasix) 40 mg IVPUSH Q12H [facility] Last Admin: 07/31/18 08:03 Dose: 40 mg Guaifenesin/Dextromethorphan (Mucinex Dm Er 600-30 Mg) 1 tab PO BID [facility] Last Admin: 08/01/18 08:19 Dose: 1 tab Levofloxacin/Dextrose 500 mg/ (Premix) 100 mls @ 100 mls/hr IV Q24H [facility] Last Admin: 07/30/18 21:37 Dose: 100 mls/hr Lactated Ringer's (Ringers, Lactated) 1,000 mls @ 75 mls/hr IV ASDIRECTED [facility] Last Admin: 08/01/18 06:15 Dose: 75 mls/hr Loperamide HCl (Imodium Ad) 4 mg PO ONETIME ONE Stop: 07/31/18 11:03 Last Admin: 07/31/18 11:12 Dose: 4 mg Magnesium Oxide (Magnesium Oxide) 400 mg PO DAILY [facility] Last Admin: 07/31/18 07:58 Dose: 400 mg Multivitamins/Minerals/Vitamin C (Tab-A-Johnnie) 1 tab PO DAILY [facility] Last Admin: 07/31/18 07:57 Dose: 1 tab Non-Formulary Medication (Lenalidomide [Revlimid]) 10 mg PO DAILY [facility] Non-Formulary Medication (Loperamide Hcl [Imodium A-D]) 2 mg PO DAILY [facility] Pantoprazole Sodium (Protonix Iv) 40 mg IVPUSH Q12H [facility] Last Admin: 07/31/18 08:43 Dose: 40 mg Pantoprazole Sodium (Protonix Iv) 40 mg IVPUSH DAILY [facility] Last Admin: 08/01/18 08:17 Dose: 40 mg Pegfilgrastim (Neulasta) 6 mg SUBCUT ONETIME ONE Stop: 07/30/18 20:53 Last Admin: 07/30/18 21:39 Dose: 6 mg Potassium Chloride (Klor-Con M20) 20 meq PO BID [facility] Last Admin: 07/31/18 07:59 Dose: 20 meq Sodium Chloride (Saline Flush) 10 ml FLUSH Q12H [facility] Last Admin: 07/31/18 08:05 Dose: 10 ml - Exam Quality Assessment: Supplemental Oxygen (took of at beginning of exam and visit and O2 sat was 98% at RA after exam) General: Alert, Oriented HEENT: Pupils Reactive, Mucous Membr. Moist/[place] Neck: Supple, Trachea Midline, No JVD Lungs: Normal Respiratory Effort, Rhonchi (in the lower lung ramos, left > right) Cardiovascular: Regular Rate, Regular Rhythm GI/Abdominal Exam: Normal Bowel Sounds, Soft, Non-Tender (Female) Exam: Deferred Back Exam: Normal Inspection Extremities: No Pedal Edema Skin: Warm, Dry, Intact Neurological: No New Focal Deficit Psy/Mental Status: Alert, Normal Affect, Normal Mood - Problem List Review Problem List Initiated/Reviewed/Updated: Yes - My Orders Last 24 Hours: My Active Orders 08/02/18 08:03 Menthol/Methyl Salicylate [Icy Hot Cream] 0 gm TOP QID PRN - Plan Plan:: 07/31/18 Angelina Colon MD [facility] this AM. Still with diarrhea but does have chronic loose stools. Still not feeling well. [place] [facility] Dr. Griffith is her doctor. 08/01/18 Angelina Colon MD Clinically feeling improved. Still coughing. C-diff +. Metronidazole started. Diarrhea improving. Continue IV zosyn for pneumonia. MRSA negative. Pancytopenia. WBC improving. Improved oral intake. ANC >~1200. Improved. 08-02-18 Tarun Brothers PA-C Feeling better. Still some occasional cough, sometimes productive. Wants to take oxygen off. Wants to go home. No more diarrhea. Labs improving. Planning at this time to continue current treatment, repeat labs in am and probable discharge to home in the morning, to follow up at [facility] later in the week. Dr. Alfaro consulted.
[2018-08-02] MEDS: Latanoprost 0.005% Ophth Soln 2.5 ML Bottle**OWN MED EYELF SCH (20:23)
[2018-08-02] MEDS: Temazepam 15 MG Cap PO PRN (20:25)
[2018-08-02] MEDS: Sodium Chloride 0.9% 10 ML Syringe FLUSH PRN (20:58)
[2018-08-03] MEDS: Piperacillin/Tazobactam 3.375 GM in Sodium Chloride 0.9% 100 ML IV SCH ×2 (01:51→08:14)
[2018-08-03] MEDS: metroNIDAZOLE 500 MG Tab PO SCH ×2 (01:51→08:15)
[2018-08-03] MEDS: Sodium Chloride 0.9% 10 ML Syringe FLUSH PRN (01:52)
[2018-08-03 07:29] LABS: CHLORIDE,CL 105 mmol/L (98-107); SODIUM,NA 139 mmol/L (136-145)
[2018-08-03 08:04] VITALS: BP 131/52
[2018-08-03] MEDS: Famotidine 20 MG/2 ML SDV IVPUSH SCH (08:14)
[2018-08-03] MEDS: Albuterol/Ipratropium 3.0-0.5 MG/3 ML Neb Soln NEB SCH (08:14)
[2018-08-03] MEDS: Acyclovir 200 MG Cap PO SCH (08:15)
[2018-08-03] MEDS: Sodium Chloride 0.9% 10 ML Syringe FLUSH SCH (08:15)
[2018-08-03] MEDS: Calcium Carbonate/Vitamin D3 1500 MG-400 Units Tab PO SCH (08:15)
[2018-08-03] MEDS: Potassium Chloride 10 MEQ Tab.ER PO SCH (08:15)
[2018-08-03] MEDS: Loperamide 2 MG Tab PO SCH (08:15)
[2018-08-03] MEDS: Timolol Maleate 0.25% Ophth Soln 5 ML Bottle EYELF SCH (08:20)
--- NOTE | 2018-08-03 10:36 | PCM.PN ---
- General Info Date of Service: 08/03/18 Admission Dx/Problem (Free Text): Pneumonia +C. diff. Functional Status: Reports: Pain Controlled, Tolerating Diet, Ambulating, Urinating - Review of Systems General: Reports: No Symptoms HEENT: Reports: No Symptoms Pulmonary: Reports: Cough (mostly nonproductive ) Cardiovascular: Reports: No Symptoms Gastrointestinal: Reports: No Symptoms, Other (a couple soft stools, no actual diarrhea - did take Imodium) Genitourinary: Reports: No Symptoms Musculoskeletal: Reports: No Symptoms Skin: Reports: No Symptoms Neurological: Reports: No Symptoms Psychiatric: Reports: No Symptoms - Patient Data Vitals - Most Recent: Last Vital Signs Temp 97.8 F 08/03/18 08:00 Pulse 87 08/03/18 08:00 Resp 20 08/03/18 08:00 BP 131/52 L 08/03/18 08:00 Pulse Ox 90 L 08/03/18 08:00 Weight - Most Recent: 132 lb 11.2 oz I&O - Last 24 Hours: Intake & Output 08/02/18 08/03/18 08/03/18 22:59 06:59 14:59 Intake Total 740 100 Balance 740 100 Lab Results Last 24 Hours: Laboratory Results - last 24 hr 08/03/18 08/03/18 Range/Units 06:54 06:54 WBC 4.6 (4.0-10.2) K/uL RBC 2.49 L (3.77-5.09) M/uL Hgb 8.4 L (11.7-15.5) g/dL Hct 25.4 L (34.0-46.0) % MCV 102.0 H (84.0-98.0) fL MCH 33.7 H (28.2-33.3) pg MCHC 33.1 (31.7-36.0) g/dL RDW 14.9 H (11.2-14.1) % Plt Count 43 L* (150-350) K/uL Neut % (Auto) 49.1 (45.0-80.0) % Lymph % (Auto) 29.3 (10.0-50.0) % Gonzales % (Auto) 18.4 H (2.0-14.0) % Eos % (Auto) 2.8 (0.0-5.0) % Baso % (Auto) 0.4 (0.0-2.0) % Neut # (Auto) 2.24 (1.40-7.00) K/uL Lymph # (Auto) 1.34 (0.50-3.50) K/uL Gonzales # (Auto) 0.84 (0.00-1.00) K/uL Eos # (Auto) 0.13 (0.00-0.50) K/uL Baso # (Auto) 0.02 (0.00-0.20) K/uL Sodium 139 (136-145) mmol/L Potassium 4.3 (3.5-5.1) mmol/L Chloride 105 (98-107) mmol/L Carbon Dioxide 25.8 (21.0-32.0) mmol/L BUN 8 (7-18) mg/dL Creatinine 0.82 (0.51-1.17) mg/dL Est Cr Clr Drug Dosing 48.26 mL/min Estimated GFR (MDRD) > 60 mL/min Glucose 95 (74-106) mg/dL Calcium 7.9 L (8.5-10.1) mg/dL Total Bilirubin 0.6 (0.2-1.0) mg/dL AST 10 L (15-37) U/L ALT 16 (12-78) U/L Alkaline Phosphatase 46 (46-116) IU/L C-Reactive Protein 9.3 H (<=0.9) mg/dL Total Protein 5.9 L (6.4-8.2) g/dL Albumin 2.4 L (3.4-5.0) g/dL Niall Results Last 24 Hours: Microbiology 07/30/18 19:35 Aerobic Blood Culture - Preliminary Blood - Venous - Lab Draw NO GROWTH AFTER 3 DAYS Anaerobic Blood Culture - Preliminary NO GROWTH AFTER 3 DAYS 07/30/18 19:05 Aerobic Blood Culture - Preliminary Blood - Venous NO GROWTH AFTER 3 DAYS Anaerobic Blood Culture - Preliminary NO GROWTH AFTER 3 DAYS 08/01/18 07:30 Mycoplasma Serology - Final Blood Med Orders - Current: Current Medications Acetaminophen (Tylenol) 650 mg PO Q4H PRN PRN Reason: Pain (Mild 1-3)/fever Last Admin: 08/02/18 07:50 Dose: 650 mg Acyclovir (Zovirax) 400 mg PO BID JEFFERY Last Admin: 08/03/18 08:15 Dose: 400 mg Albuterol (Proventil Neb Soln) 2.5 mg NEB Q2H PRN PRN Reason: Dyspnea Albuterol/Ipratropium (Duoneb 3.0-0.5 Mg/3 Ml) 3 ml NEB QIDRT [facility] Last Admin: 08/03/18 08:14 Dose: 3 ml Calcium Carbonate (Caltrate 600+D 1500 Mg-400 Units) 2 tab PO QAM [facility] Last Admin: 08/03/18 08:15 Dose: 2 tab Calcium Carbonate/Glycine (Tums Extra Strength) 1,500 mg PO BEDTIME PRN PRN Reason: acid reflux Last Admin: 08/02/18 19:26 Dose: 1,500 mg Famotidine (Pepcid) 20 mg IVPUSH DAILY [facility] Last Admin: 08/03/18 08:14 Dose: 20 mg Guaifenesin/Dextromethorphan (Mucinex Dm Er 600-30 Mg) 1 tab PO BID PRN PRN Reason: Cough Piperacillin Sod/Tazobactam (Sod 3.375 gm/ Sodium Chloride) 100 mls @ 200 mls/ hr IV Q6H [facility] Last Admin: 08/03/18 08:14 Dose: 200 mls/hr Latanoprost (Xalatan 0.005% Ophth Soln) 0 ml EYELF BEDTIME [facility] Last Admin: 08/02/18 20:23 Dose: 1 drop Loperamide HCl (Imodium Ad) 2 mg PO ASDIRECTED PRN PRN Reason: Diarrhea Last Admin: 08/01/18 14:13 Dose: 2 mg Loperamide HCl (Imodium Ad) 2 mg PO DAILY [facility] Last Admin: 08/03/18 08:15 Dose: 2 mg Methyl Salicylate (Icy Hot Cream) 0 gm TOP QID PRN PRN Reason: Pain (mild 1-3) Metronidazole (Flagyl) 500 mg PO Q8HR [facility] Last Admin: 08/03/18 08:15 Dose: 500 mg Ondansetron HCl (Zofran) 4 mg IVPUSH Q6H PRN PRN Reason: Nausea/Vomiting Last Admin: 07/31/18 09:17 Dose: 4 mg Potassium Chloride (Klor-Con 10) 20 meq PO TID [facility] Last Admin: 08/03/18 08:15 Dose: 20 meq Sodium Chloride (Saline Flush) 10 ml FLUSH ASDIRECTED PRN PRN Reason: Keep Vein Open Last Admin: 08/03/18 01:52 Dose: 10 ml Sodium Chloride (Saline Flush) 10 ml FLUSH Q12HR [facility] Last Admin: 08/03/18 08:15 Dose: 10 ml Temazepam (Restoril) 15 mg PO BEDTIME PRN PRN Reason: Insomnia Last Admin: 08/02/18 20:25 Dose: 15 mg Timolol Maleate (Timoptic 0.25% Ophth Soln) 0 ml EYELF DAILY [facility] Last Admin: 08/03/18 08:20 Dose: Not Given Discontinued Medications Acetaminophen (Tylenol) 650 mg PO NOW ONE Stop: 07/30/18 19:59 Last Admin: 07/30/18 20:07 Dose: 650 mg Albuterol/Ipratropium (Duoneb 3.0-0.5 Mg/3 Ml) 3 ml NEB ONETIME ONE Stop: 07/30/18 18:53 Last Admin: 07/30/18 19:29 Dose: 3 ml Albuterol/Ipratropium (Duoneb 3.0-0.5 Mg/3 Ml) 3 ml NEB Q4HRRT PRN PRN Reason: Dyspnea Albuterol/Ipratropium (Duoneb 3.0-0.5 Mg/3 Ml) 3 ml NEB Q6HRRT [facility] Last Admin: 07/31/18 13:36 Dose: 3 ml Aspirin (Aspirin) 325 mg PO DAILY [facility] Last Admin: 07/31/18 07:58 Dose: 325 mg Budesonide (Pulmicort) 0.5 mg NEB ONETIME ONE Stop: 07/30/18 18:53 Last Admin: 07/30/18 19:29 Dose: 0.5 mg Budesonide (Pulmicort) 0.5 mg NEB BIDRT [facility] Last Admin: 07/31/18 07:57 Dose: 0.5 mg Cholecalciferol (Vitamin D3) 2,000 units PO DAILY [facility] Last Admin: 07/31/18 07:59 Dose: 2,000 units Furosemide (Lasix) 40 mg IVPUSH Q12H [facility] Last Admin: 07/31/18 08:03 Dose: 40 mg Guaifenesin/Dextromethorphan (Mucinex Dm Er 600-30 Mg) 1 tab PO BID [facility] Last Admin: 08/01/18 08:19 Dose: 1 tab Levofloxacin/Dextrose 500 mg/ (Premix) 100 mls @ 100 mls/hr IV Q24H [facility] Last Admin: 07/30/18 21:37 Dose: 100 mls/hr Lactated Ringer's (Ringers, Lactated) 1,000 mls @ 75 mls/hr IV ASDIRECTED [facility] Last Admin: 08/01/18 06:15 Dose: 75 mls/hr Loperamide HCl (Imodium Ad) 4 mg PO ONETIME ONE Stop: 07/31/18 11:03 Last Admin: 07/31/18 11:12 Dose: 4 mg Magnesium Oxide (Magnesium Oxide) 400 mg PO DAILY [facility] Last Admin: 07/31/18 07:58 Dose: 400 mg Multivitamins/Minerals/Vitamin C (Tab-A-Johnnie) 1 tab PO DAILY [facility] Last Admin: 07/31/18 07:57 Dose: 1 tab Ketorolac 0.5% Opth (SolnOwn Med) 1 drop EYELF TID [facility] Last Admin: 08/02/18 07:41 Dose: 1 drop Non-Formulary Medication (Lenalidomide [Revlimid]) 10 mg PO DAILY [facility] Non-Formulary Medication (Loperamide Hcl [Imodium A-D]) 2 mg PO DAILY [facility] Pantoprazole Sodium (Protonix Iv) 40 mg IVPUSH Q12H [facility] Last Admin: 07/31/18 08:43 Dose: 40 mg Pantoprazole Sodium (Protonix Iv) 40 mg IVPUSH DAILY [facility] Last Admin: 08/01/18 08:17 Dose: 40 mg Pegfilgrastim (Neulasta) 6 mg SUBCUT ONETIME ONE Stop: 07/30/18 20:53 Last Admin: 07/30/18 21:39 Dose: 6 mg Potassium Chloride (Klor-Con M20) 20 meq PO BID [facility] Last Admin: 07/31/18 07:59 Dose: 20 meq Prednisolone Acetate (Pred Forte 1% Ophth Susp) 0 ml EYELF TID [facility] Last Admin: 08/02/18 07:42 Dose: 1 drop Sodium Chloride (Saline Flush) 10 ml FLUSH Q12H [facility] Last Admin: 07/31/18 08:05 Dose: 10 ml - Exam General: Alert, Oriented HEENT: Pupils Reactive, Mucous Membr. Moist/[place] Neck: Supple, Trachea Midline Lungs: Normal Respiratory Effort, Rhonchi (rhonchi persist in lower lobes bilat , but air exchange improved) Cardiovascular: Regular Rate, Regular Rhythm GI/Abdominal Exam: Normal Bowel Sounds, Soft, Non-Tender (Female) Exam: Deferred Back Exam: Normal Inspection Extremities: No Pedal Edema Skin: Warm, Dry, Intact Neurological: No New Focal Deficit Psy/Mental Status: Alert, Normal Affect, Normal Mood - Problem List Review Problem List Initiated/Reviewed/Updated: Yes - Plan Plan:: 07/31/18 Angelina Colon MD [facility] this AM. Still with diarrhea but does have chronic loose stools. Still not feeling well. [place] [facility] Dr. Griffith is her doctor. 08/01/18 Angelina Colon MD Clinically feeling improved. Still coughing. C-diff +. Metronidazole started. Diarrhea improving. Continue IV zosyn for pneumonia. MRSA negative. Pancytopenia. WBC improving. Improved oral intake. ANC >~1200. Improved. 08-02-18 Tarun Brothers PA-C Feeling better. Still some occasional cough, sometimes productive. Wants to take oxygen off. Wants to go home. No more diarrhea. Labs improving. Planning at this time to continue current treatment, repeat labs in am and probable discharge to home in the morning, to follow up at [facility] later in the week. Dr. Alfaro consulted. 08-03-18 Tarun Brothers PA-C Continues to feel better and is looking forward to going home. Has not been using O2. Labs improved. Understands discharge medications, and will schedule follow up appt with JOHN Mccollum at [facility] this coming week for exam, labs and CXR.
== END 2018-08-03 11:15 | disposition home or self-care (01) | DRG 194 ==
LOC: LL.ED 18:30 → LL.MS 20:20
PROVIDERS: ADMIT Family Medicine; ATTEND Family Medicine
DX: J18.1 Lobar pneumonia, unspecified organism (principal); J44.0 Chronic obstructive pulmonary disease with (acute) lower respiratory infection; D72.819 Decreased white blood cell count, unspecified; E87.1 Hypo-osmolality and hyponatremia; C90.00 Multiple myeloma not having achieved remission; A04.72 Enterocolitis due to Clostridium difficile, not specified as recurrent; D61.818 Other pancytopenia; D69.6 Thrombocytopenia, unspecified; D70.1 Agranulocytosis secondary to cancer chemotherapy; T45.1X5A Adverse effect of antineoplastic and immunosuppressive drugs, initial encounter; K21.9 Gastro-esophageal reflux disease without esophagitis; E83.42 Hypomagnesemia; E88.09 Other disorders of plasma-protein metabolism, not elsewhere classified; I50.9 Heart failure, unspecified; E80.6 Other disorders of bilirubin metabolism; D64.9 Anemia, unspecified; M15.0 Primary generalized (osteo)arthritis; M25.512 Pain in left shoulder; M81.0 Age-related osteoporosis without current pathological fracture; M21.611 Bunion of right foot; K57.30 Diverticulosis of large intestine without perforation or abscess without bleeding; H40.9 Unspecified glaucoma; K22.2 Esophageal obstruction; Z79.899 Other long term (current) drug therapy; Z87.01 Personal history of pneumonia (recurrent); Z92.21 Personal history of antineoplastic chemotherapy
CPT/HCPCS: 36415; 71046; 74019; 80053; 81001; 82247; 82248; 82272; 82550; 82553; 82607; 82728; 82746; 83540; 83550; 83605; 83735; 83880; 84443; 84484; 85025; 85379; 85610; 85730; 86140; 86738; 87040; 87081; 87086; 87430; 87493; 87641; 87804; 93005; 94640; 94761; 96365; 97161-GP; 99285; A9270-GY; C9113; J1940; J1956; J2405; J2505; J2543; J3490; J7050; J7120; J7620-GY

== ENCOUNTER 2019-03-06 15:40 | Observation (INO) | payer MEDICARE, BC ==
[2019-03-06] MEDS ORDERED: Sodium Chloride 0.9% 10 ML Syringe FLUSH PRN (15:49)
[2019-03-06 16:23] LABS: CHLORIDE,CL 101 mmol/L (98-107); SODIUM,NA 136 mmol/L (136-145)
[2019-03-06] MEDS ORDERED: Potassium Chloride 10 MEQ in Premix Bag 1 BAG IV ONE ×3 (16:48→19:00)
[2019-03-06] MEDS ORDERED: Potassium Chloride 20 MEQ Tab.ER PO ONE (16:48)
--- NOTE | 2019-03-06 17:32 | EDM.PDOC ---
ED HPI GENERAL MEDICAL PROBLEM - General Chief Complaint: Respiratory Problem Stated Complaint: weak, fatigue, recent pneumonia Time Seen by Provider: 03/06/19 16:12 Source of Information: Reports: Patient History Limitations: Reports: No Limitations - History of Present Illness INITIAL COMMENTS - FREE TEXT/NARRATIVE: Patient comes to ER complaining of fatigue, mild feeling of lightheadedness. On day three of Levaquin therapy. Was felt to have pneumonia by prescribing health care provider. Says that her initial symptoms 3 days ago were nausea, single episode of emesis, and loose stools. Temp 99 at ER when seen then. No fevers noted since that visit. Has mild intermittent cough but denies any significant cough/SOB/phlegm production. No new pain complaints. No headache/vision change/runny nose/sore throat or other HEENT changes. No real new respiratory complaint as noted above. GI + for continued loose stools/non-bloody. Appetite has been poor the last few days. No further emesis/nausea. Has been taking Imodium. No complaints/changes/symptoms of UTI. No new focal neuro complaints/focal weakness. No rashes/new skin complaints. No new musculoskeletal pain. recently . is on Saturday - Related Data Allergies Allergy/AdvReac Type Severity Reaction Status Date / Time No Known Allergies Allergy Verified 03/06/19 16:03 Home Meds: Home Meds Calcium Carbonate/Vitamin D3 [Calcium 600-Vit D3 400 Tablet] 2 tab PO QAM [History] Fluticasone/Salmeterol [Advair 100-50] 1 puff INH BID 09/01/14 [History] Calcium Carbonate [Tums Extra Strength] 1,500 mg PO TID PRN 09/02/14 [History] Multivitamins [Tab-A-Johnnie] 1 tab PO DAILY 04/26/16 [History] Albuterol Sulfate [Proventil Hfa] 1 puff INH Q4H PRN 07/30/18 [History] Albuterol/Ipratropium [DuoNeb 3.0-0.5 MG/3 ML] 1 vial INH Q4H PRN 07/30/18 [ History] Cholecalciferol (Vitamin D3) [Vitamin D3] 2,000 mg PO DAILY 07/30/18 [History] Timolol Maleate [Timoptic 0.25% Ophth Soln] 1 drop EYELF DAILY 07/30/18 [History ] Levofloxacin [Levaquin] 500 mg PO DAILY #6 tablet 08/02/18 [Rx] Loperamide [Imodium AD] 2 mg PO ASDIRECTED PRN tablet 08/02/18 [Rx] Lenalidomide [Revlimid] 10 tab PO ASDIRECTED 03/06/19 [History] Pantoprazole Sodium [Protonix] 40 mg PO DAILY 03/06/19 [History] Past Medical History HEENT History: Reports: Cataract, Glaucoma, Impaired Vision, Other (See Below) Other HEENT History: She wears glasses. Respiratory History: Reports: Bronchitis, Recurrent, COPD, Intubation, Previous , Pneumonia, Recurrent Gastrointestinal History: Reports: Chronic Diarrhea, Colon Polyp, Diverticulosis , GERD, Other (See Below) Other Gastrointestinal History: Sigmoid diverticulosis. Recurrent benign rectal polyps in the rectal area. LFTs elevation of unknown etiology. Genitourinary History: Reports: None [employer] History: Reports: Other [employer] History: Menopause at about age 51. Full term without complications during pregnancies or deliveries Musculoskeletal History: Reports: Arthritis, Back Pain, Chronic, Neck Pain, Chronic, Osteoarthritis, Osteoporosis Neurological History: Reports: None Psychiatric History: Reports: None Endocrine/Metabolic History: Reports: Osteopenia, Osteoporosis, Other (See Below ) Other Endocrine/Metabolic History: Hypokalemia. Hyponatremia. Hypoalbuminemia. Hematologic History: Reports: Other (See Below) Other Hematologic History: Thrombocytopenia. 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 Oncologic (Cancer) History: Reports: Other (See Below) Other Oncologic History: Multiple myeloma diagnosed in May 2016. Dermatologic History: Reports: None - Infectious Disease History Infectious Disease History: Reports: Chicken Pox, Influenza, Measles, Mumps, Rubella - Past Surgical History Head Surgeries/Procedures: Reports: None HEENT Surgical History: Reports: Cataract Surgery, Eye Surgery, Oral Surgery, Other (See Below) Other HEENT Surgeries/Procedures: Bilateral cataract and glaucoma surgery with right eye on 06/25/18 in the left eye on 07/09/18. Multiple teeth extractions. Cardiovascular Surgical History: Reports: None Respiratory Surgical History: Reports: Other (See Below) Other Respiratory Surgeries/Procedures: Right-sided bronchoscopy on 04/09/18. GI Surgical History: Reports: Colonoscopy, EGD, Polypectomy, Other (See Below) Other GI Surgeries/Procedures: Rectal polypectomy on 09/02/14 and 04/26/16 with EGD and colonoscopy on those days. Previous colonoscopy on 01/11/05. Possible sigmoidoscopy on 11/06/1999 Female Surgical History: Reports: Tubal Ligation, Other (See Below) Other Female Surgeries/Procedures: Bilateral tubal ligation in 1979 no other female surgeries Endocrine Surgical History: Reports: None Neurological Surgical History: Reports: None Musculoskeletal Surgical History: Reports: Arthroscopic Procedure, Shoulder Surgery Oncologic Surgical History: Reports: None Dermatological Surgical History: Reports: None - Past Imaging History Past Imaging History: Reports: CAT Scan (CT of the chest on 06/06/18 and 03/27/18. ), DEXA Scan (01/02/13), Mammogram (Last mammogram on 03/01/17.), PET (Whole body PET scan on 03/18/17.), PFT (06/06/18.), Ultrasound (Left breast ultrasound on ), Venous Doppler (Left leg on 08/05/17.) Social & Family History - Family History HEENT: Reports: Glaucoma, Macular Degeneration, Other (See Below) Other HEENT Family History: Sister with glaucoma. Sisters 2 with macular degeneration. Cardiac: Reports: High Cholesterol, Other (See Below) Other Cardiac Family History: Sisters 2 with hyperlipidemia. Respiratory: Reports: COPD, Other (See Below) Other Respiratory Family Hisory: Mother with history of COPD and tobacco use GI: Reports: None, Colon Polyps : Reports: None OBGYN: Reports: None Musculoskeletal: Reports: None Neurological: Reports: Migraines, Other (See Below) Other Neurological Family History: Sister with migraines. Psychiatric: Reports: None Endocrine/Metabolic: Reports: None Hematologic: Reports: None Immunologic: Reports: None Dermatologic: Reports: None Oncologic: Reports: Colon, Leukemia, Liver, Other (See Below) Other Oncologic Family History: Mother with colon cancer however fatal leukemia at age 65. Mother with fatal liver cancer at age 78. - Tobacco Use Smoking Status *Q: Never Smoker - Caffeine Use Caffeine Use: Reports: Coffee - Alcohol Use Alcohol Use Frequency: Rarely - Recreational Drug Use Recreational Drug Use: No - Living Situation & Occupation Living situation: Reports: (1960, 3 children.), with Family () Occupation: Employed (Retired [employer]) ED ROS GENERAL - Review of Systems Review Of Systems: ROS reveals no pertinent complaints other than HPI. ED EXAM, GENERAL - Physical Exam Exam: See Below Exam Limited By: No Limitations General Appearance: Alert, WD/WN, No Apparent Distress Eye Exam: Bilateral Eye: EOMI, Normal Inspection Ears: Normal External Exam Nose: No: Nasal Deformity, Nasal Swelling, Nasal Drainage Throat/Mouth: Normal Lips, Normal Voice, No Airway Compromise Head: Atraumatic, Normocephalic Neck: Supple, Non-Tender Respiratory/Chest: No Respiratory Distress, Lungs Clear, Normal Breath Sounds, No Accessory Muscle Use, Chest Non-Tender Cardiovascular: Normal Peripheral Pulses, Regular Rate, Rhythm, No Edema, No Murmur Peripheral Pulses: 2+: Radial (L), Radial (R), Dorsalis Pedis (L), Dorsalis Pedis (R) GI/Abdominal: Normal Bowel Sounds, Soft, Non-Tender, No Distention (Female) Exam: Deferred Rectal (Female) Exam: Deferred Back Exam: No: CVA Tenderness (L), CVA Tenderness (R), Muscle Spasm, Paraspinal Tenderness, Vertebral Tenderness Extremities: Normal Inspection, Non-Tender, No Pedal Edema, Normal Capillary Refill Neurological: Alert, Oriented, Normal Cognition, No Motor/Sensory Deficits Psychiatric: Normal Affect, Normal Mood Skin Exam: Warm, Dry, Intact, Normal Color, No Rash EKG INTERPRETATION EKG Date: 03/06/19 Time: 17:25 Rhythm: NSR Rate (Beats/Min): 61 [place]: Normal P-Wave: Present QRS: Normal ST-T: Normal QT: Normal Comparison: No Change Course - Vital Signs Last Recorded V/S: Last Vital Signs Temp 36.8 C 03/06/19 15:59 Pulse 61 03/06/19 17:26 Resp 16 03/06/19 17:26 BP 134/49 L 03/06/19 17:26 Pulse Ox 98 03/06/19 17:26 - Orders/Labs/Meds Orders: Active Orders 24 hr Category Date Time Status EKG Documentation Completion [RC] ASDIRECTED Care 03/06/19 17:26 Ordered Chest 2V [CR] Stat Exams 03/06/19 15:49 Taken UA W/MICROSCOPIC [URIN] Stat Lab 03/06/19 15:49 Ordered Sodium Chloride 0.9% @ 100 MLS/HR(1,000ml) Med 03/06/19 17:30 Ordered Sodium Chloride 0.9% [Normal Saline] 1,000 ml IV ASDIRECTED Sodium Chloride 0.9% [Saline Flush] Med 03/06/19 15:49 Active 10 ml FLUSH ASDIRECTED PRN Saline Lock Insert [OM.PC] Routine Oth 03/06/19 15:49 Ordered Medication Orders Sodium Chloride (Normal Saline) 1,000 mls @ 100 mls/hr IV ASDIRECTED JEFFERY Sodium Chloride (Saline Flush) 10 ml FLUSH ASDIRECTED PRN PRN Reason: Keep Vein Open Last Admin: 03/06/19 17:30 Dose: 10 ml Labs: Laboratory Tests 03/06/19 03/06/19 Range/Units 15:50 15:50 WBC 2.5 L (4.0-10.2) K/uL RBC 2.85 L (3.77-5.09) M/uL Hgb 9.5 L (11.7-15.5) g/dL Hct 28.6 L (34.0-46.0) % MCV 100.4 H (84.0-98.0) fL MCH 33.3 (28.2-33.3) pg MCHC 33.2 (31.7-36.0) g/dL RDW 13.7 (11.2-14.1) % Plt Count 66 L (150-350) K/uL Neut % (Auto) 55.1 (45.0-80.0) % Lymph % (Auto) 28.0 (10.0-50.0) % [place] % (Auto) 9.4 (2.0-14.0) % Eos % (Auto) 7.1 H (0.0-5.0) % Baso % (Auto) 0.4 (0.0-2.0) % Neut # (Auto) 1.40 (1.40-7.00) K/uL Lymph # (Auto) 0.71 (0.50-3.50) K/uL [place] # (Auto) 0.24 (0.00-1.00) K/uL Eos # (Auto) 0.18 (0.00-0.50) K/uL Baso # (Auto) 0.01 (0.00-0.20) K/uL Sodium 136 (136-145) mmol/L Potassium 2.5 L* D (3.5-5.1) mmol/L Chloride 101 (98-107) mmol/L Carbon Dioxide 25.1 (21.0-32.0) mmol/L BUN 12 (7-18) mg/dL Creatinine 0.79 (0.51-1.17) mg/dL Est Cr Clr Drug Dosing 49.33 mL/min Estimated GFR (MDRD) > 60 mL/min Glucose 121 H (74-106) mg/dL Calcium 8.1 L (8.5-10.1) mg/dL Total Bilirubin 0.6 (0.2-1.0) mg/dL AST 18 (15-37) U/L ALT 24 (12-78) U/L Alkaline Phosphatase 51 (46-116) IU/L Total Protein 7.0 (6.4-8.2) g/dL Albumin 2.9 L (3.4-5.0) g/dL Meds: Medications Generic Name Dose Route Start Last Admin Trade Name Freq PRN Reason Stop Dose Admin Sodium Chloride 1,000 mls @ 100 mls/hr 03/06/19 17:30 Normal Saline IV ASDIRECTED JEFFERY Sodium Chloride 10 ml 03/06/19 15:49 03/06/19 17:30 Saline Flush FLUSH 10 ml ASDIRECTED PRN Administration Keep Vein Open Discontinued Medications Generic Name Dose Route Start Last Admin Trade Name Freq PRN Reason Stop Dose Admin Potassium Chloride 10 meq/ 50 mls @ 50 mls/hr 03/06/19 16:48 03/06/19 17:29 Premix IV 03/06/19 17:47 50 mls/hr ONETIME ONE Administration Potassium Chloride 40 meq 03/06/19 16:48 03/06/19 17:17 Klor-Con M20 PO 03/06/19 16:49 40 meq ONETIME ONE Administration - Radiology Interpretation Free Text/Narrative:: Chest xray taken. Compared to previous films. No obvious acute changes. No suggestion of acute pneumonia appreciated. - Re-Assessments/Exams Free Text/Narrative Re-Assessment/Exam: 03/06/19 17:34 Basic labs obtained. Noted to have low K at 2.5 WBC 2.5 Patient has been on chemo for multiple myeloma and usually runs around 3.0 Unable to void and give urine specimen so far. Suspect symptoms related to hypokalemia, mild dehydration from diarrhea. Also do not feel at this time that patient has pneumonia based on history/exam/ xrays. Initial complaint of emesis and loose stools could have been viral in nature. Also consider stress component with her spending several nights at the hospital this week while her was in the dying process. Will discontinue antibiotics. Oral potassium and IV potassium ordered while patient in ER. Will admit to observation for telemetry and potassium replacement. Departure - Departure Time of Disposition: 17:48 Disposition: Refer to Observation Condition: Good Clinical Impression: Hypokalemia, Dehydration, mild Diarrhea Qualifiers: Diarrhea type: unspecified type Qualified Code(s): R19.7 - Diarrhea, unspecified - Discharge Information *PRESCRIPTION DRUG MONITORING PROGRAM REVIEWED*: Not Applicable *COPY OF PRESCRIPTION DRUG MONITORING REPORT IN PATIENT PHYLLIS: Not Applicable - Problem List & Annotations (1) Hypokalemia SNOMED Code(s): 91751688 Code(s): E87.6 - HYPOKALEMIA Status: Acute Priority: High Current Visit : Yes Onset Date: ~03/06/19 Annotation/Comment:: Suspect secondary to GI loss from recent loose stools, had been low in past but not this significantly. Oral and IV replacement ordered. Recheck levels in 6 hours and in AM. (2) Diarrhea SNOMED Code(s): 32012199 Code(s): R19.7 - DIARRHEA, UNSPECIFIED Status: Acute Priority: Medium Current Visit: Yes Annotation/Comment:: Patient reports chronic loose stools over the years. Recently worsened midweek, accompanied by single emesis. Possible viral gastroenteritis. Placed on Levaquin for coverage of possible pneumonia, which led to worsening loose stools. Patient has used Imodium at home for this. Will discontinue Levaquin as no evidence of pneumonia noted at this time. (3) Mild dehydration SNOMED Code(s): 8541664492235 Code(s): E86.0 - DEHYDRATION Status: Acute Priority: Medium Current Visit: Yes Annotation/Comment:: Suspect mild dehydration from loose stools and lack of appetite. Will place patient on NS at 100ml/hr. (4) COPD (chronic obstructive pulmonary disease) SNOMED Code(s): 26145117 Code(s): J44.9 - CHRONIC OBSTRUCTIVE PULMONARY DISEASE, UNSPECIFIED Status : Chronic Priority: Medium Current Visit: No Annotation/Comment:: Stable per patient Qualifiers: COPD type: unspecified COPD Qualified Code(s): J44.9 - Chronic obstructive pulmonary disease, unspecified (5) Leukopenia SNOMED Code(s): 42721215, 121191932 Code(s): D72.819 - DECREASED WHITE BLOOD CELL COUNT, UNSPECIFIED Status: Chronic Priority: Low Current Visit: No Onset Date: 07/30/18 Annotation/ Comment:: Chronic. Usually runs around 3.0 per patient and daughter. Qualifiers: Leukopenia type: unspecified Qualified Code(s): D72.819 - Decreased white blood cell count, unspecified (6) Peptic reflux disease SNOMED Code(s): 216585027 Code(s): K21.9 - GASTRO-ESOPHAGEAL REFLUX DISEASE WITHOUT ESOPHAGITIS Status: Chronic Priority: Low Current Visit: No Annotation/Comment:: Stable by history. (7) Osteoarthritis SNOMED Code(s): 088309556 Code(s): M19.90 - UNSPECIFIED OSTEOARTHRITIS, UNSPECIFIED SITE Status: Chronic Priority: Medium Current Visit: No Annotation/Comment:: Stable by history Qualifiers: Osteoarthritis location: unspecified site (8) Hypoalbuminemia SNOMED Code(s): 590348606 Code(s): E88.09 - OTH DISORDERS OF PLASMA-PROTEIN METABOLISM, NEC Status: Chronic Priority: Low Current Visit: No Onset Date: 07/30/18 Annotation/ Comment:: Chronic (9) Multiple myeloma SNOMED Code(s): 790690713 Code(s): C90.00 - MULTIPLE MYELOMA NOT HAVING ACHIEVED REMISSION Status: Chronic Priority: Low Current Visit: No Annotation/Comment:: Currently under therapy. Qualifiers: Multiple myeloma remission status: unspecified Qualified Code(s): C90.00 - Multiple myeloma not having achieved remission - Problem List Review Problem List Initiated/Reviewed/Updated: Yes - My Orders Last 24 Hours: My Active Orders 03/06/19 15:49 Chest 2V [CR] Stat UA W/MICROSCOPIC [URIN] Stat Sodium Chloride 0.9% [Saline Flush] 10 ml FLUSH ASDIRECTED PRN Saline Lock Insert [OM.PC] Routine 03/06/19 17:26 EKG Documentation Completion [RC] ASDIRECTED 03/06/19 17:30 Sodium Chloride 0.9% @ 100 MLS/HR(1,000ml) Sodium Chloride 0.9% [Normal Saline] 1,000 ml IV ASDIRECTED - Assessment/Plan Admission H&P: Please use this note as an admission H&P Last 24 Hours: My Active Orders 03/06/19 15:49 Chest 2V [CR] Stat UA W/MICROSCOPIC [URIN] Stat Sodium Chloride 0.9% [Saline Flush] 10 ml FLUSH ASDIRECTED PRN Saline Lock Insert [OM.PC] Routine 03/06/19 17:26 EKG Documentation Completion [RC] ASDIRECTED 03/06/19 17:30 Sodium Chloride 0.9% @ 100 MLS/HR(1,000ml) Sodium Chloride 0.9% [Normal Saline] 1,000 ml IV ASDIRECTED Assessment:: as above. Plan: as above. Patient admitted to observation for potassium replacement. Anticipate 24-48 hour stay while potassium levels are corrected. Patient stable and appropriate for generalized supervision.
[2019-03-06] MEDS ORDERED: Ondansetron 4 MG Tab.DIS PO PRN (18:01)
[2019-03-06] MEDS ORDERED: Ondansetron 4 MG/2 ML SDV IVPUSH PRN (18:01)
[2019-03-06] MEDS ORDERED: Acetaminophen 325 MG Tab PO PRN (18:01)
[2019-03-06] MEDS ORDERED: Albuterol/Ipratropium 3.0-0.5 MG/3 ML Neb Soln INH PRN (18:04)
[2019-03-06] MEDS ORDERED: Calcium Carbonate 750 MG Tab.Chew PO PRN (18:04)
[2019-03-06] MEDS ORDERED: Loperamide 2 MG Tab PO PRN (18:04)
[2019-03-06] MEDS: Sodium Chloride 0.9% 1,000 ML IV SCH (19:05)
[2019-03-06] MEDS ORDERED: Potassium Chloride 10 MEQ Tab.ER PO ONE (20:00)
[2019-03-06] MEDS ORDERED: Ibuprofen 400 MG Tab PO PRN (21:35)
[2019-03-06] MEDS ORDERED: Temazepam 15 MG Cap PO PRN (22:32)
[2019-03-07] MEDS: Sodium Chloride 0.9% 1,000 ML IV SCH (04:31)
[2019-03-07] MEDS ORDERED: Pantoprazole 40 MG Tab.CR PO SCH (07:00)
[2019-03-07 07:52] LABS: CHLORIDE,CL 107 mmol/L (98-107); SODIUM,NA 140 mmol/L (136-145)
[2019-03-07] MEDS ORDERED: Timolol Maleate 0.25% Ophth Soln 5 ML Bottle EYELF SCH (08:00)
[2019-03-07] MEDS ORDERED: Potassium Chloride 20 MEQ Tab.ER PO ONE ×3 (08:00→13:49)
[2019-03-07] MEDS ORDERED: Formoterol/Mometasone 100-5 MCG 8.8 GM Inhaler IH SCH (08:00)
[2019-03-07] MEDS ORDERED: Potassium Chloride 10 MEQ in Premix Bag 1 BAG IV ONE (09:50)
[2019-03-07 11:37] VITALS: BP 136/59; PULSE 66
--- NOTE | 2019-03-07 12:43 | PCM.DCSUM1 ---
Discharge Summary - Hospital Course Brief History: Patient admitted for potassium replacement to correct hypokalemia. Recent diarrhea which was made worse after being started on Levaquin. Diagnosis: Stroke: No - Discharge Data Discharge Date: 03/07/19 Discharge Disposition: Home, Self-Care 01 Condition: Good - Discharge Diagnosis/Problem(s) (1) Hypokalemia SNOMED Code(s): 94666111 ICD Code: E87.6 - HYPOKALEMIA Status: Acute Priority: High Current Visit: Yes Onset Date: ~03/06/19 Problem Details: Suspect secondary to GI loss from recent loose stools, had been low in past but not this significantly. Oral and IV replacement given. Levels improved. 3.6 at time of discharge. (2) Hypomagnesemia SNOMED Code(s): 509069945 ICD Code: E83.42 - HYPOMAGNESEMIA Status: Chronic Priority: Medium Current Visit: Yes Onset Date: 07/30/18 Problem Details: Patient has history of previously low magnesium levels. Magnesium supplementation needs to be initiated and levels followed by primary provider. (3) Diarrhea SNOMED Code(s): 30873819 ICD Code: R19.7 - DIARRHEA, UNSPECIFIED Status: Acute Priority: Medium Current Visit: Yes Problem Details: Patient reports chronic loose stools over the years. Recently worsened midweek, accompanied by single emesis. Possible viral gastroenteritis. Placed on Levaquin for coverage of possible pneumonia, which led to worsening loose stools. Patient has used Imodium at home for this. Levaquin discontinued as no evidence of pneumonia noted at this time. No loose stools noted today. Qualifiers: Diarrhea type: unspecified type Qualified Code(s): R19.7 - Diarrhea, unspecified (4) Mild dehydration SNOMED Code(s): 4572128028051 ICD Code: E86.0 - DEHYDRATION Status: Acute Priority: Medium Current Visit: Yes Problem Details: Suspect mild dehydration from loose stools and lack of appetite. NS at 100ml/hr. Subsequent hemodilution effects on HGB and calcium, etc noted on AM labs. Rate slowed to 50ml/hr. (5) COPD (chronic obstructive pulmonary disease) SNOMED Code(s): 45231896 ICD Code: J44.9 - CHRONIC OBSTRUCTIVE PULMONARY DISEASE, UNSPECIFIED Status : Chronic Priority: Medium Current Visit: No Problem Details: Stable per patient Qualifiers: COPD type: unspecified COPD Qualified Code(s): J44.9 - Chronic obstructive pulmonary disease, unspecified (6) Leukopenia SNOMED Code(s): 26925897, 855036355 ICD Code: D72.819 - DECREASED WHITE BLOOD CELL COUNT, UNSPECIFIED Status: Chronic Priority: Low Current Visit: No Onset Date: 07/30/18 Problem Details: Chronic. Usually runs around 3.0 per patient and daughter. Qualifiers: Leukopenia type: unspecified Qualified Code(s): D72.819 - Decreased white blood cell count, unspecified (7) Peptic reflux disease SNOMED Code(s): 503851320 ICD Code: K21.9 - GASTRO-ESOPHAGEAL REFLUX DISEASE WITHOUT ESOPHAGITIS Status: Chronic Priority: Low Current Visit: No Problem Details: Stable by history. (8) Osteoarthritis SNOMED Code(s): 326376712 ICD Code: M19.90 - UNSPECIFIED OSTEOARTHRITIS, UNSPECIFIED SITE Status: Chronic Priority: Medium Current Visit: No Problem Details: Stable by history Qualifiers: Osteoarthritis location: unspecified site (9) Hypoalbuminemia SNOMED Code(s): 726654556 ICD Code: E88.09 - OTH DISORDERS OF PLASMA-PROTEIN METABOLISM, NEC Status: Chronic Priority: Low Current Visit: No Onset Date: 07/30/18 Problem Details: Chronic (10) Multiple myeloma SNOMED Code(s): 148570522 ICD Code: C90.00 - MULTIPLE MYELOMA NOT HAVING ACHIEVED REMISSION Status: Chronic Priority: Low Current Visit: No Problem Details: Currently under therapy. Qualifiers: Multiple myeloma remission status: unspecified Qualified Code(s): C90.00 - Multiple myeloma not having achieved remission (11) IBS (irritable bowel syndrome) SNOMED Code(s): 43093015 ICD Code: K58.9 - IRRITABLE BOWEL SYNDROME WITHOUT DIARRHEA Status: Chronic Current Visit: Yes Problem Details: Patient reports 20+ years of IBS type symptoms. Worsening gradually through years. Time spent discussing elimination diets to see if specific triggers for IBS exacerbations could be identified, such as dairy or wheat/gluten elimination. Qualifiers: Irritable bowel syndrome type: with diarrhea Qualified Code(s): K58.0 - Irritable bowel syndrome with diarrhea - Patient Summary/Data Hospital Course: Patient received IV and PO potassium replacement. Levaquin discontinued. Also noted to have low Magnesium. Magnesium replacement ordered. She does report chronic issues with muscle cramps, particularly in her legs at night, which may be due to this deficiency. Potassium level improved. Vital signs stable. Patient's appetite noted to improve today and she was able to eat breakfast and lunch. Plan at this time is to discharge her today with close follow up by her primary provider on Saturday, which is three days from now. She has her ' s on Saturday. To get potassium rechecked at Saturday visit, and discuss at that time if continued potassium replacement therapy is warranted. She is to start regular Magnesium supplementation given her low Magnesium levels noted during this visit and last July. Antibiotics will not be restarted at this time. No fevers/coughs or other signs of bacterial infection noted during stay. - Patient Instructions Diet: Regular Diet as Tolerated (Recommend trial dairy-free and wheat/gluten- free diet to see if it helps patient's IBS issues. ) Activity: As Tolerated Driving: May Drive Today Showering/Bathing: May Shower Notify Provider of: Fever Other/Special Instructions: Follow up at clinic Saturday and get your Potassium level rechecked. Discuss if further daily potassium supplements are needed depending on lab results at that time. Start Magnesium supplements as discussed. Recommend Mag Glycinate (much less likely to contribute to loose stools), 250 to 500mg daily. Get Mag levels rechecked 3-4 weeks after starting the supplement. Look into elimination diet to see if you can help your IBS complaints. Big triggers are Dairy and Wheat/Gluten. Processed foods and sugar also make IBS worse. Look into getting a digestive enzyme supplement to take with your meals. - Discharge Plan *PRESCRIPTION DRUG MONITORING PROGRAM REVIEWED*: Not Applicable *COPY OF PRESCRIPTION DRUG MONITORING REPORT IN PATIENT PHYLLIS: Not Applicable Prescriptions/Med Rec: Magnesium Glycinate 250 gm PO DAILY 30 Days powder Home Medications: Home Meds Calcium Carbonate/Vitamin D3 [Calcium 600-Vit D3 400 Tablet] 2 tab PO QAM [History] Fluticasone/Salmeterol [Advair 100-50] 1 puff INH BID 09/01/14 [History] Calcium Carbonate [Tums Extra Strength] 1,500 mg PO TID PRN 09/02/14 [History] Multivitamins [Tab-A-Johnnie] 1 tab PO DAILY 04/26/16 [History] Albuterol Sulfate [Proventil Hfa] 1 puff INH Q4H PRN 07/30/18 [History] Albuterol/Ipratropium [DuoNeb 3.0-0.5 MG/3 ML] 1 vial INH Q4H PRN 07/30/18 [ History] Cholecalciferol (Vitamin D3) [Vitamin D3] 2,000 mg PO DAILY 07/30/18 [History] Timolol Maleate [Timoptic 0.25% Ophth Soln] 1 drop EYELF DAILY 07/30/18 [History ] Loperamide [Imodium AD] 2 mg PO ASDIRECTED PRN tablet 08/02/18 [Rx] Lenalidomide [Revlimid] 10 tab PO ASDIRECTED 03/06/19 [History] Pantoprazole Sodium [Protonix] 40 mg PO DAILY 03/06/19 [History] Magnesium Glycinate 250 gm PO DAILY 30 Days powder 03/07/19 [Rx] Patient Handouts: Hypomagnesemia, Hypokalemia, Potassium Content of Foods Forms: ED Department Discharge Referrals: Arianna Her [employer] [Primary Care Provider] - - Discharge Summary/Plan Comment DC Time >30 min.: No - General Info Date of Service: 03/07/19 Admission Dx/Problem (Free Text: Not feeling well, fatigue, weak, diarrhea. Noted to have hypokalemia. Subjective Update: Feels much improved today. Would like to go home. Functional Status: Reports: Pain Controlled, Tolerating Diet, Ambulating, Urinating. Denies: New Symptoms - Review of Systems General: Reports: Appetite (improving). Denies: Fever, Weakness, Malaise, Chills, Night Sweats HEENT: Reports: Glasses. Denies: Sinus Congestion, Sore Throat, Rhinitis, Visual Changes Pulmonary: Reports: No Symptoms. Denies: Cough Cardiovascular: Reports: No Symptoms. Denies: Chest Pain, Lightheadedness Gastrointestinal: Reports: No Symptoms. Denies: Abdominal Pain, Constipation, Diarrhea, Nausea, Vomiting Genitourinary: Reports: No Symptoms Musculoskeletal: Reports: No Symptoms (no changes from baseline) Skin: Reports: No Symptoms Neurological: Reports: No Symptoms Psychiatric: Reports: No Symptoms - Patient Data Vitals - Most Recent: Last Vital Signs Temp 36.8 C 03/07/19 11:36 Pulse 66 03/07/19 11:36 Resp 16 03/07/19 11:36 BP 136/59 L 03/07/19 11:36 Pulse Ox 99 03/07/19 11:36 Weight - Most Recent: 60.146 kg I&O - Last 24 hours: Intake & Output 03/06/19 03/07/19 03/07/19 22:59 06:59 14:59 Intake Total 250 1200 990 Balance 250 1200 990 Lab Results - Last 24 hrs: Laboratory Results - last 24 hr 03/06/19 03/06/19 03/06/19 Range/Units 15:50 15:50 18:30 WBC 2.5 L (4.0-10.2) K/uL RBC 2.85 L (3.77-5.09) M/uL Hgb 9.5 L (11.7-15.5) g/dL Hct 28.6 L (34.0-46.0) % MCV 100.4 H (84.0-98.0) fL MCH 33.3 (28.2-33.3) pg MCHC 33.2 (31.7-36.0) g/dL RDW 13.7 (11.2-14.1) % Plt Count 66 L (150-350) K/uL Neut % (Auto) 55.1 (45.0-80.0) % Lymph % (Auto) 28.0 (10.0-50.0) % Wood % (Auto) 9.4 (2.0-14.0) % Eos % (Auto) 7.1 H (0.0-5.0) % Baso % (Auto) 0.4 (0.0-2.0) % Neut # (Auto) 1.40 (1.40-7.00) K/uL Lymph # (Auto) 0.71 (0.50-3.50) K/uL Wood # (Auto) 0.24 (0.00-1.00) K/uL Eos # (Auto) 0.18 (0.00-0.50) K/uL Baso # (Auto) 0.01 (0.00-0.20) K/uL Sodium 136 (136-145) mmol/L Potassium 2.5 L* D (3.5-5.1) mmol/L Chloride 101 (98-107) mmol/L Carbon Dioxide 25.1 (21.0-32.0) mmol/L BUN 12 (7-18) mg/dL Creatinine 0.79 (0.51-1.17) mg/dL Est Cr Clr Drug Dosing 49.33 mL/min Estimated GFR (MDRD) > 60 mL/min Glucose 121 H (74-106) mg/dL Calcium 8.1 L (8.5-10.1) mg/dL Magnesium (1.8-2.4) mg/dL Total Bilirubin 0.6 (0.2-1.0) mg/dL AST 18 (15-37) U/L ALT 24 (12-78) U/L Alkaline Phosphatase 51 (46-116) IU/L Total Protein 7.0 (6.4-8.2) g/dL Albumin 2.9 L (3.4-5.0) g/dL Specimen Type Urincc Urine Color Yellow Urine Appearance Clear Urine pH 5.5 (5.0-9.0) Ur Specific Busy 1.010 (1.005-1.030) Urine Protein Trace H (NEGATIVE) mg/dL Urine Glucose (UA) Negative (NEGATIVE) mg/dL Urine Ketones Negative (NEGATIVE) mg/dL Urine Occult Blood Trace-lysed H (NEGATIVE) Urine Nitrite Negative (NEGATIVE) Urine Bilirubin Negative (NEGATIVE) Urine Urobilinogen 0.2 (0.2-1.0) E.U./dL Ur Leukocyte Esterase Negative (NEGATIVE) Urine RBC 0-5 /HPF Urine WBC 0-5 /HPF Ur Epithelial Cells Moderate H /LPF Urine Bacteria Rare (NONE TO FEW) /HPF Hyaline Casts Rare H (NEGATIVE) /LPF 03/06/19 03/06/19 03/07/19 Range/Units 21:50 21:50 07:30 WBC 2.5 L (4.0-10.2) K/uL RBC 2.60 L (3.77-5.09) M/uL Hgb 8.9 L (11.7-15.5) g/dL Hct 26.3 L (34.0-46.0) % MCV 101.2 H (84.0-98.0) fL MCH 34.2 H (28.2-33.3) pg MCHC 33.8 (31.7-36.0) g/dL RDW 13.6 (11.2-14.1) % Plt Count 67 L (150-350) K/uL Neut % (Auto) 40.7 L (45.0-80.0) % Lymph % (Auto) 36.0 (10.0-50.0) % Wood % (Auto) 13.8 (2.0-14.0) % Eos % (Auto) 9.1 H (0.0-5.0) % Baso % (Auto) 0.4 (0.0-2.0) % Neut # (Auto) 1.03 L (1.40-7.00) K/uL Lymph # (Auto) 0.91 (0.50-3.50) K/uL Wood # (Auto) 0.35 (0.00-1.00) K/uL Eos # (Auto) 0.23 (0.00-0.50) K/uL Baso # (Auto) 0.01 (0.00-0.20) K/uL Sodium (136-145) mmol/L Potassium 3.3 L (3.5-5.1) mmol/L Chloride (98-107) mmol/L Carbon Dioxide (21.0-32.0) mmol/L BUN (7-18) mg/dL Creatinine (0.51-1.17) mg/dL Est Cr Clr Drug Dosing mL/min Estimated GFR (MDRD) mL/min Glucose (74-106) mg/dL Calcium (8.5-10.1) mg/dL Magnesium 1.6 L (1.8-2.4) mg/dL Total Bilirubin (0.2-1.0) mg/dL AST (15-37) U/L ALT (12-78) U/L Alkaline Phosphatase (46-116) IU/L Total Protein (6.4-8.2) g/dL Albumin (3.4-5.0) g/dL Specimen Type Urine Color Urine Appearance Urine pH (5.0-9.0) Ur Specific Busy (1.005-1.030) Urine Protein (NEGATIVE) mg/dL Urine Glucose (UA) (NEGATIVE) mg/dL Urine Ketones (NEGATIVE) mg/dL Urine Occult Blood (NEGATIVE) Urine Nitrite (NEGATIVE) Urine Bilirubin (NEGATIVE) Urine Urobilinogen (0.2-1.0) E.U./dL Ur Leukocyte Esterase (NEGATIVE) Urine RBC /HPF Urine WBC /HPF Ur Epithelial Cells /LPF Urine Bacteria (NONE TO FEW) /HPF Hyaline Casts (NEGATIVE) /LPF 03/07/19 Range/Units 07:30 WBC (4.0-10.2) K/uL RBC (3.77-5.09) M/uL Hgb (11.7-15.5) g/dL Hct (34.0-46.0) % MCV (84.0-98.0) fL MCH (28.2-33.3) pg MCHC (31.7-36.0) g/dL RDW (11.2-14.1) % Plt Count (150-350) K/uL Neut % (Auto) (45.0-80.0) % Lymph % (Auto) (10.0-50.0) % Wood % (Auto) (2.0-14.0) % Eos % (Auto) (0.0-5.0) % Baso % (Auto) (0.0-2.0) % Neut # (Auto) (1.40-7.00) K/uL Lymph # (Auto) (0.50-3.50) K/uL Wood # (Auto) (0.00-1.00) K/uL Eos # (Auto) (0.00-0.50) K/uL Baso # (Auto) (0.00-0.20) K/uL Sodium 140 (136-145) mmol/L Potassium 3.3 L (3.5-5.1) mmol/L Chloride 107 (98-107) mmol/L Carbon Dioxide 27.5 (21.0-32.0) mmol/L BUN 5 L (7-18) mg/dL Creatinine 0.70 (0.51-1.17) mg/dL Est Cr Clr Drug Dosing 56.90 mL/min Estimated GFR (MDRD) > 60 mL/min Glucose 87 (74-106) mg/dL Calcium 7.4 L (8.5-10.1) mg/dL Magnesium (1.8-2.4) mg/dL Total Bilirubin (0.2-1.0) mg/dL AST (15-37) U/L ALT (12-78) U/L Alkaline Phosphatase (46-116) IU/L Total Protein (6.4-8.2) g/dL Albumin (3.4-5.0) g/dL Specimen Type Urine Color Urine Appearance Urine pH (5.0-9.0) Ur Specific Busy (1.005-1.030) Urine Protein (NEGATIVE) mg/dL Urine Glucose (UA) (NEGATIVE) mg/dL Urine Ketones (NEGATIVE) mg/dL Urine Occult Blood (NEGATIVE) Urine Nitrite (NEGATIVE) Urine Bilirubin (NEGATIVE) Urine Urobilinogen (0.2-1.0) E.U./dL Ur Leukocyte Esterase (NEGATIVE) Urine RBC /HPF Urine WBC /HPF Ur Epithelial Cells /LPF Urine Bacteria (NONE TO FEW) /HPF Hyaline Casts (NEGATIVE) /LPF Med Orders - Current: Current Medications Acetaminophen (Tylenol) 650 mg PO Q4H PRN PRN Reason: Pain (Mild 1-3)/fever Albuterol/Ipratropium (Duoneb 3.0-0.5 Mg/3 Ml) 3 ml INH Q4HRRT PRN PRN Reason: Shortness of Breath Calcium Carbonate/Glycine (Tums Extra Strength) 1,500 mg PO TID PRN PRN Reason: acid reflux Sodium Chloride (Normal Saline) 1,000 mls @ 50 mls/hr IV ASDIRECTED [facility] Last Admin: 03/07/19 04:31 Dose: 100 mls/hr Ibuprofen (Motrin) 400 mg PO Q6H PRN PRN Reason: Pain Loperamide HCl (Imodium Ad) 2 mg PO ASDIRECTED PRN PRN Reason: Diarrhea Mometasone Furoate/Formoterol Fumar (Dulera 100-5 Mcg) 2 puff IH BID [facility] Last Admin: 03/07/19 07:35 Dose: Not Given Ondansetron HCl (Zofran) 4 mg IVPUSH Q6H PRN PRN Reason: Nausea/Vomiting Ondansetron HCl (Zofran Odt) 4 mg PO Q6H PRN PRN Reason: Nausea/Vomiting Last Admin: 03/06/19 21:34 Dose: 4 mg Pantoprazole Sodium (Protonix) 40 mg PO ACBREAKFAST@0700 [facility] Last Admin: 03/07/19 07:25 Dose: 40 mg Sodium Chloride (Saline Flush) 10 ml FLUSH ASDIRECTED PRN PRN Reason: Keep Vein Open Last Admin: 03/06/19 17:30 Dose: 10 ml Temazepam (Restoril) 15 mg PO BEDTIME PRN PRN Reason: Insomnia Last Admin: 03/06/19 23:07 Dose: 15 mg Timolol Maleate (Timoptic 0.25% Ophth Soln) 0 ml EYELF DAILY [facility] Last Admin: 03/07/19 07:35 Dose: Not Given Discontinued Medications Potassium Chloride 10 meq/ (Premix) 50 mls @ 50 mls/hr IV ONETIME ONE Stop: 03/06/19 17:47 Last Admin: 03/06/19 17:29 Dose: 50 mls/hr Potassium Chloride 10 meq/ (Premix) 50 mls @ 50 mls/hr IV ONETIME ONE Stop: 03/06/19 19:59 Last Admin: 03/06/19 20:16 Dose: 50 mls/hr Potassium Chloride 10 meq/ (Premix) 50 mls @ 50 mls/hr IV ONETIME ONE Stop: 03/06/19 19:07 Last Admin: 03/06/19 19:06 Dose: 50 mls/hr Magnesium Sulfate/Dextrose 1 (gm/ Premix) 100 mls @ 100 mls/hr IV ONETIME ONE Stop: 03/07/19 00:29 Last Admin: 03/07/19 00:48 Dose: 100 mls/hr Magnesium Sulfate/Dextrose 1 (gm/ Premix) 100 mls @ 100 mls/hr IV ONETIME ONE Stop: 03/07/19 08:59 Last Infusion: 03/07/19 08:35 Dose: Infused Potassium Chloride 10 meq/ (Premix) 50 mls @ 50 mls/hr IV ONETIME ONE Stop: 03/07/19 10:49 Last Infusion: 03/07/19 11:31 Dose: Infused Potassium Chloride (Klor-Con M20) 40 meq PO ONETIME ONE Stop: 03/06/19 16:49 Last Admin: 03/06/19 17:17 Dose: 40 meq Potassium Chloride (Klor-Con 10) 20 meq PO ONETIME ONE Stop: 03/06/19 20:01 Last Admin: 03/06/19 21:27 Dose: 20 meq Potassium Chloride (Klor-Con M20) 20 meq PO ONETIME ONE Stop: 03/07/19 08:01 Last Admin: 03/07/19 07:37 Dose: 20 meq Potassium Chloride (Klor-Con M20) 20 meq PO ONETIME ONE Stop: 03/07/19 12:01 Last Admin: 03/07/19 11:31 Dose: 20 meq - Exam Quality Assessment: Reports: DVT Prophylaxis General: Reports: Alert, Oriented, Cooperative, No Acute Distress HEENT: Reports: Pupils Equal, Pupils Reactive, EOMI, Mucous Membr. Moist/[place] Neck: Reports: Supple Lungs: Reports: Clear to Auscultation, Normal Respiratory Effort Cardiovascular: Reports: Regular Rate, Regular Rhythm GI/Abdominal Exam: Normal Bowel Sounds, Soft, Non-Tender, No Distention (Female) Exam: Deferred Rectal (Female) Exam: Deferred Back Exam: Denies: CVA Tenderness (L), CVA Tenderness (R) Extremities: Non-Tender, Normal Capillary Refill Skin: Reports: Warm, Dry, Intact Neurological: Reports: No New Focal Deficit Psy/Mental Status: Reports: Alert, Normal Affect, Normal Mood
== END 2019-03-07 15:05 | disposition home or self-care (01) ==
LOC: LL.ED 15:40 → LL.MS 17:28 → UNDOADMOB 17:28 → LL.MS 18:25
PROVIDERS: ADMIT Emergency Medicine; ATTEND Emergency Medicine
DX: E87.6 Hypokalemia (principal); E83.42 Hypomagnesemia; K58.0 Irritable bowel syndrome with diarrhea; J44.9 Chronic obstructive pulmonary disease, unspecified; D72.819 Decreased white blood cell count, unspecified; K21.9 Gastro-esophageal reflux disease without esophagitis; M19.90 Unspecified osteoarthritis, unspecified site; E88.09 Other disorders of plasma-protein metabolism, not elsewhere classified; C90.00 Multiple myeloma not having achieved remission; Z79.899 Other long term (current) drug therapy; Z79.51 Long term (current) use of inhaled steroids
CPT/HCPCS: 36415; 71046; 80048; 80053; 81001; 83735; 84132; 85025; 93005; 96365; 99285; A9270; J3475; J3480; J7030; 93010; 96361; 96366; 96367; 96376; 99217; 99218; G0378

== ENCOUNTER 2019-05-23 18:27 | Emergency (ER) | payer MEDICARE, BC ==
[2019-05-23 18:31] VITALS: BP 160/46; PULSE 83
[2019-05-23 19:15] LABS: CHLORIDE,CL 102 mmol/L (98-107); SODIUM,NA 138 mmol/L (136-145)
--- NOTE | 2019-05-23 19:42 | EDM.PDOC ---
ED HPI GENERAL MEDICAL PROBLEM - General Chief Complaint: General Stated Complaint: chills,cough,achiness Time Seen by Provider: 05/23/19 19:30 Source of Information: Reports: Patient History Limitations: Reports: No Limitations - History of Present Illness INITIAL COMMENTS - FREE TEXT/NARRATIVE: Patient is a 78-year-old with history of COPD and multiple bilateral she is on oral chemotherapy for her multiple myeloma at this time she presents with chills coughing we went ahead and evaluate her did a CBC which showed a WBC of 1.9 with an absolute neutrophil count count of 27 at this time I examined she is alert oriented in no acute distress lungs clear heart regular rate and rhythm abdomen soft nontender I called oncology to explain her situation and they felt that we could send her home on levofloxacin 750 Onset: Sudden Duration: Hour(s): Location: Reports: Chest, Generalized Quality: Reports: Ache Severity: Moderate Improves with: Reports: None Worsens with: Reports: None Context: Reports: Other (Chemotherapy) Associated Symptoms: Reports: No Other Symptoms - Related Data Allergies Allergy/AdvReac Type Severity Reaction Status Date / Time No Known Allergies Allergy Verified 05/23/19 18:31 Home Meds: Home Meds Calcium Carbonate/Vitamin D3 [Calcium 600-Vit D3 400 Tablet] 2 tab PO QAM [History] Fluticasone/Salmeterol [Advair 100-50] 1 puff INH BID 09/01/14 [History] Multivitamins [Tab-A-Johnnie] 1 tab PO DAILY 04/26/16 [History] Cholecalciferol (Vitamin D3) [Vitamin D3] 2,000 mg PO DAILY 07/30/18 [History] Timolol Maleate [Timoptic 0.25% Ophth Soln] 1 drop EYELF DAILY 07/30/18 [History ] Loperamide [Imodium AD] 2 mg PO ASDIRECTED PRN tablet 08/02/18 [Rx] Lenalidomide [Revlimid] 10 tab PO ASDIRECTED 03/06/19 [History] Pantoprazole Sodium [Protonix] 40 mg PO DAILY 03/06/19 [History] Aspirin 325 mg PO DAILY 05/23/19 [History] Levofloxacin [Levaquin] 750 mg PO DAILY 7 Days #7 tablet 05/23/19 [Rx] Past Medical History HEENT History: Reports: Cataract, Glaucoma, Impaired Vision, Other (See Below) Other HEENT History: She wears glasses. Respiratory History: Reports: Bronchitis, Recurrent, COPD, Pneumonia, Recurrent Gastrointestinal History: Reports: Chronic Diarrhea, Colon Polyp, Diverticulosis , GERD, Other (See Below) Other Gastrointestinal History: Sigmoid diverticulosis. Recurrent benign rectal polyps in the rectal area. LFTs elevation of unknown etiology. 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 Full term without complications during pregnancies or deliveries Musculoskeletal History: Reports: Arthritis, Back Pain, Chronic, Neck Pain, Chronic, Osteoarthritis, Osteoporosis Neurological History: Reports: None Psychiatric History: Reports: None Endocrine/Metabolic History: Reports: Osteopenia, Osteoporosis, Other (See Below ) Other Endocrine/Metabolic History: Hypokalemia. Hyponatremia. Hypoalbuminemia. Hematologic History: Reports: Other (See Below) Other Hematologic History: Thrombocytopenia. 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 Oncologic (Cancer) History: Reports: Other (See Below) Other Oncologic History: Multiple myeloma diagnosed in May 2016. Dermatologic History: Reports: None - Infectious Disease History Infectious Disease History: Reports: Chicken Pox, Influenza, Measles, Mumps, Rubella - Past Surgical History Head Surgeries/Procedures: Reports: None HEENT Surgical History: Reports: Cataract Surgery, Eye Surgery, Oral Surgery, Other (See Below) Other HEENT Surgeries/Procedures: Bilateral cataract and glaucoma surgery with right eye on 06/25/18 in the left eye on 07/09/18. Multiple teeth extractions. Cardiovascular Surgical History: Reports: None Respiratory Surgical History: Reports: Other (See Below) Other Respiratory Surgeries/Procedures: Right-sided bronchoscopy on 04/09/18. GI Surgical History: Reports: Colonoscopy, EGD, Polypectomy, Other (See Below) Other GI Surgeries/Procedures: Rectal polypectomy on 09/02/14 and 04/26/16 with EGD and colonoscopy on those days. Previous colonoscopy on 01/11/05. Possible sigmoidoscopy on 11/06/1999 Female Surgical History: Reports: Tubal Ligation, Other (See Below) Other Female Surgeries/Procedures: Bilateral tubal ligation in 1979 no other female surgeries Endocrine Surgical History: Reports: None Neurological Surgical History: Reports: None Musculoskeletal Surgical History: Reports: Arthroscopic Procedure, Shoulder Surgery Oncologic Surgical History: Reports: None Dermatological Surgical History: Reports: None - Past Imaging History Past Imaging History: Reports: CAT Scan (CT of the chest on 06/06/18 and 03/27/18. ), DEXA Scan (01/02/13), Mammogram (Last mammogram on 03/01/17.), PET (Whole body PET scan on 03/18/17.), PFT (06/06/18.), Ultrasound (Left breast ultrasound on ), Venous Doppler (Left leg on 08/05/17.) Social & Family History - Family History HEENT: Reports: Glaucoma, Macular Degeneration, Other (See Below) Other HEENT Family History: Sister with glaucoma. Sisters 2 with macular degeneration. Cardiac: Reports: High Cholesterol, Other (See Below) Other Cardiac Family History: Sisters 2 with hyperlipidemia. Respiratory: Reports: COPD, Other (See Below) Other Respiratory Family Hisory: Mother with history of COPD and tobacco use GI: Reports: None, Colon Polyps : Reports: None OBGYN: Reports: None Musculoskeletal: Reports: None Neurological: Reports: Migraines, Other (See Below) Other Neurological Family History: Sister with migraines. Psychiatric: Reports: None Endocrine/Metabolic: Reports: None Hematologic: Reports: None Immunologic: Reports: None Dermatologic: Reports: None Oncologic: Reports: Colon, Leukemia, Liver, Other (See Below) Other Oncologic Family History: Mother with colon cancer however fatal leukemia at age 65. Mother with fatal liver cancer at age 78. - Tobacco Use Smoking Status *Q: Never Smoker - Caffeine Use Caffeine Use: Reports: Coffee - Recreational Drug Use Recreational Drug Use: No - Living Situation & Occupation Living situation: Reports: (89, 3 children.), with Family () Occupation: Employed (Retired [employer]) ED ROS GENERAL - Review of Systems Review Of Systems: See Below Constitutional: Reports: Chills, Weakness HEENT: Reports: No Symptoms Respiratory: Reports: Shortness of Breath Cardiovascular: Reports: No Symptoms Endocrine: Reports: No Symptoms GI/Abdominal: Reports: No Symptoms : Reports: No Symptoms Musculoskeletal: Reports: No Symptoms Skin: Reports: No Symptoms Neurological: Reports: No Symptoms Psychiatric: Reports: No Symptoms ED EXAM, GENERAL - Physical Exam Exam: See Below Exam Limited By: No Limitations General Appearance: Alert, WD/WN, No Apparent Distress Ears: Normal External Exam, Normal Canal, Hearing Grossly Normal, Normal TMs Ear Exam: Bilateral Ear: Auricle Normal, Canal Normal, TM normal Nose: Normal Inspection, Normal Mucosa, No Blood Throat/Mouth: Normal Inspection, Normal Lips, Normal Teeth, Normal Gums, Normal Oropharynx, Normal Voice, No Airway Compromise Head: Atraumatic, Normocephalic Neck: Normal Inspection, Supple, Non-Tender, Full Range of Motion Respiratory/Chest: No Respiratory Distress, Lungs Clear, Normal Breath Sounds, No Accessory Muscle Use, Chest Non-Tender Cardiovascular: Normal Peripheral Pulses, Regular Rate, Rhythm, No Edema, No Gallop, No JVD, No Murmur, No Rub GI/Abdominal: Normal Bowel Sounds, Soft, Non-Tender, No Organomegaly, No Distention, No Abnormal Bruit, No Mass (Female) Exam: Deferred Rectal (Female) Exam: Deferred Back Exam: Normal Inspection, Full Range of Motion, NT Extremities: Normal Inspection, Normal Range of Motion, Non-Tender, Normal Capillary Refill, No Pedal Edema Neurological: Alert, Oriented, CN II-XII Intact, Normal Cognition, Normal Gait, Normal Reflexes, No Motor/Sensory Deficits Psychiatric: Normal Affect, Normal Mood Course - Vital Signs Last Recorded V/S: Last Vital Signs Temp 99.6 F 05/23/19 18:53 Pulse 83 05/23/19 18:28 Resp 18 05/23/19 18:28 BP 160/46 H 05/23/19 18:28 Pulse Ox 95 05/23/19 18:28 - Orders/Labs/Meds Orders: Active Orders 24 hr Category Date Time Status Chest 2V [CR] Stat Exams 05/23/19 18:48 Taken Labs: Laboratory Tests 05/23/19 05/23/19 Range/Units 18:54 18:54 WBC 1.9 L* (4.0-10.2) K/uL RBC 3.13 L (3.77-5.09) M/uL Hgb 10.0 L (11.7-15.5) g/dL Hct 31.4 L (34.0-46.0) % MCV 100.3 H (84.0-98.0) fL MCH 31.9 (28.2-33.3) pg MCHC 31.8 (31.7-36.0) g/dL RDW 14.6 H (11.2-14.1) % Plt Count 80 L (150-350) K/uL Neut % (Auto) 46.3 (45.0-80.0) % Lymph % (Auto) 37.1 (10.0-50.0) % [place] % (Auto) 12.9 (2.0-14.0) % Eos % (Auto) 3.2 (0.0-5.0) % Baso % (Auto) 0.5 (0.0-2.0) % Neut # (Auto) 0.86 L (1.40-7.00) K/uL Lymph # (Auto) 0.69 (0.50-3.50) K/uL [place] # (Auto) 0.24 (0.00-1.00) K/uL Eos # (Auto) 0.06 (0.00-0.50) K/uL Baso # (Auto) 0.01 (0.00-0.20) K/uL Sodium 138 (136-145) mmol/L Potassium 3.5 (3.5-5.1) mmol/L Chloride 102 (98-107) mmol/L Carbon Dioxide 24.3 (21.0-32.0) mmol/L BUN 11 (7-18) mg/dL Creatinine 0.79 (0.51-1.17) mg/dL Est Cr Clr Drug Dosing 50.41 mL/min Estimated GFR (MDRD) > 60 mL/min Glucose 125 H (74-106) mg/dL Calcium 8.3 L (8.5-10.1) mg/dL Departure - Departure Time of Disposition: 19:46 Disposition: Home, Self-Care 01 Condition: Fair Clinical Impression: Leukopenia Qualifiers: Leukopenia type: unspecified Qualified Code(s): D72.819 - Decreased white blood cell count, unspecified COPD (chronic obstructive pulmonary disease) Qualifiers: COPD type: COPD with acute exacerbation Qualified Code(s): J44.1 - Chronic obstructive pulmonary disease with (acute) exacerbation - Discharge Information *PRESCRIPTION DRUG MONITORING PROGRAM REVIEWED*: No *COPY OF PRESCRIPTION DRUG MONITORING REPORT IN PATIENT PHYLLIS: No Prescriptions: Levofloxacin [Levaquin] 750 mg PO DAILY 7 Days #7 tablet Referrals: Arianna Her NP [Primary Care Provider] - Care Plan Goals: Patient will be sent home on level Floxin 750 one tablet a day for 10 days follow-up with primary. - My Orders Last 24 Hours: My Active Orders 05/23/19 18:48 Chest 2V [CR] Stat - Assessment/Plan Last 24 Hours: My Active Orders 05/23/19 18:48 Chest 2V [CR] Stat
== END 2019-05-23 19:55 | disposition home or self-care (01) ==
LOC: LL.ED 18:27
DX: J44.1 Chronic obstructive pulmonary disease with (acute) exacerbation (principal); D72.819 Decreased white blood cell count, unspecified; C90.00 Multiple myeloma not having achieved remission; K21.9 Gastro-esophageal reflux disease without esophagitis; H40.9 Unspecified glaucoma; Z79.82 Long term (current) use of aspirin; Z79.899 Other long term (current) drug therapy
CPT/HCPCS: 36415; 71046; 80048; 85025; 99283-25

== ENCOUNTER 2019-08-26 21:43 | Emergency (ER) | payer MEDICARE, BC ==
[2019-08-26 21:59] VITALS: BP 153/61; PULSE 92
--- NOTE | 2019-08-26 22:06 | EDM.PDOC ---
ED HPI GENERAL MEDICAL PROBLEM - General Chief Complaint: General Stated Complaint: Fever, aches Time Seen by Provider: 08/26/19 22:05 Source of Information: Reports: Patient, Family (Daughter), Old Records ([facility] chart/EMR), Other ([facility] EMR reviewed on .) History Limitations: Reports: No Limitations - History of Present Illness INITIAL COMMENTS - FREE TEXT/NARRATIVE: The patient was brought to the emergency room via private automobile by her daughter for evaluation of fever and mild mostly clear productive cough since about 13:00 hours this afternoon. She did have a fever of 100.5 at 20:15 hours with 400 mg of Advil taken at that time. She denies any known exposure to infection and did get her influenza booster this past season. The patient also denies any recent wheezing, dyspnea, etc.. The patient denies any chest pain/ pressure, heart flutter, dizziness, orthostasis, orthopnea, diaphoresis, paresthesias, recent decreased exercise tolerance, or any other anginal-type symptoms. No recent history of abdominal pain, heartburn, nausea, diarrhea, melena, gross hematochezia, or any food intolerance, including fatty foods, etc.. She denies any gross hematuria, colic, or other UTI symptoms. No recent history of any pain, distress, etc. Onset: Today, Gradual Onset Date: 08/26/19 Onset Time: 13:00 Duration: Getting Worse Location: Reports: Other (No pain) Quality: Reports: Same as Previous Episode Improves with: Reports: None Worsens with: Reports: None Context: Reports: Other (As above). Denies: Sick Contact, Trauma Associated Symptoms: Reports: Cough, cough w sputum, Fever/Chills. 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 - Related Data Allergies Allergy/AdvReac Type Severity Reaction Status Date / Time No Known Allergies Allergy Verified 05/23/19 18:31 Home Meds: Home Meds Calcium Carbonate/Vitamin D3 [Calcium 600-Vit D3 400 Tablet] 2 tab PO QAM [History] Fluticasone/Salmeterol [Advair 100-50] 1 puff INH BID 09/01/14 [History] Multivitamins [Tab-A-Johnnie] 1 tab PO DAILY 04/26/16 [History] Cholecalciferol (Vitamin D3) [Vitamin D3] 2,000 mg PO DAILY 07/30/18 [History] Timolol Maleate [Timoptic 0.25% Ophth Soln] 1 drop EYELF BID 07/30/18 [History] Loperamide [Imodium AD] 2 mg PO ASDIRECTED PRN tablet 08/02/18 [Rx] Pantoprazole Sodium [Protonix] 40 mg PO DAILY 03/06/19 [History] Aspirin 325 mg PO DAILY 05/23/19 [History] Ibuprofen 400 mg PO Q6HR PRN 08/26/19 [History] Lactobacillus Combination No.4 [Probiotic] 1 each PO DAILY 08/26/19 [History] Lenalidomide [Revlimid] 5 mg PO ASDIRECTED 08/26/19 [History] Past Medical History HEENT History: Reports: Cataract, Glaucoma, Impaired Vision, Other (See Below). Denies: Allergic Rhinitis, Hard of Hearing, Macular Degeneration, Otitis Media , Retinal Detachment Other HEENT History: She wears glasses. Cardiovascular History: Reports: CAD, Heart Failure, Other (See Below). Denies : Afib, Aneurysm, Arrhythmia, Blood Clots/VTE/DVT, Cardiomyopathy, Heart Murmur , High Cholesterol, Hypertension, KS, PVD, Syncope Other Cardiovascular History: Mild anterior coronary artery disease by resting EKG on 03/06/19. Aortic valve calcification by chest x-ray. Respiratory History: Reports: Bronchitis, Recurrent, COPD, Pneumonia, Recurrent. Denies: Asthma, Intubation, Difficult, Intubation, Previous, PE, Pneumothorax, Sleep Apnea, TB Gastrointestinal History: Reports: Chronic Diarrhea, Colon Polyp, Diverticulosis , Fecal Incontinence, GERD, Other (See Below). Denies: Bowel Obstruction, Celiac Disease, Cholelithiasis, Chronic Constipation, Fatty Liver, Gastritis, GI Bleed, Hepatitis, Hiatal Hernia, Inflammatory Bowel Disease, Irritable Bowel Syndrome, Jaundice, Pancreatitis, PUD Other Gastrointestinal History: Sigmoid diverticulosis. Recurrent benign rectal polyps, including tubular adenoma on 04/26/16. LFTs elevation of unknown etiology. Genitourinary History: Reports: None. 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 Full term without complications during pregnancies or deliveries Musculoskeletal History: Reports: Arthritis, Back Pain, Chronic, Neck Pain, Chronic, Osteoarthritis, Osteoporosis, Other (See Below). Denies: Amputation, Fracture, Gout, RA, SLE Other Musculoskeletal History: Kyphosis. Neurological History: Reports: None. Denies: Cerebral Aneurysms, Concussion, CVA, Headaches, Chronic, Head Trauma, Migraines, MS, Neuropathy, Peripheral, Parkinson's, Seizure, TIA, Vertigo Psychiatric History: Reports: None. Denies: Abuse, Victim of, ADD, Addiction, Anxiety, Depression, Psych Hospitalization(s), PTSD, Suicide Attempt, Suicidal Ideation Endocrine/Metabolic History: Reports: Hypokalemia, Hypomagnesemia, Osteopenia, Osteoporosis, Other (See Below). Denies: Diabetes, Gestational, Diabetes, Type I, Diabetes, Type II, Diabetes Mellitus, Type 3c, Hypothyroidism, IDDM, Obesity/ BMI 30+ Other Endocrine/Metabolic History: Hypokalemia. Hyponatremia. Hypoalbuminemia. Hematologic History: Reports: Anemia, Other (See Below). Denies: Blood Transfusion(s), Iron Deficiency Other Hematologic History: Recurrent anemia, leukocytosis and thrombocytopenia secondary to her chemotherapy. Immunologic History: Reports: Immunosuppression, Other (See Below). Denies: AIDS, HIV, SLE Other Immunologic History: Immunosuppression secondary to current chemotherapy for multiple myeloma. Oncologic (Cancer) History: Reports: Other (See Below). Denies: Basal Cell Carcinoma, Breast, Cervix, Colon, Hodgkin's Lymphoma, Leukemia, Lymphoma, Malignant Melanoma, Non-Hodgkin's Lymphoma, Ovarian, Squamous Cell Carcinoma, Uterine Other Oncologic History: Multiple myeloma diagnosed in May 2016. Dermatologic History: Reports: None. Denies: Eczema, Psoriasis - Infectious Disease History Infectious Disease History: Reports: C-Difficile, Chicken Pox, Influenza, Measles, Mumps, Rubella. Denies: Meningitis, Mononucleosis, MRSA, Pertussis ( Whooping Cough), Rheumatic Fever, Scarlet Fever, Shingles, TB, VRE - Past Surgical History Head Surgeries/Procedures: Reports: None HEENT Surgical History: Reports: Cataract Surgery, Eye Surgery, Oral Surgery, Other (See Below). Denies: Adenoidectomy, Laser Surgery, LASIK, Myringotomy w Tube(s), Naso-Sinus Surgery, Tonsillectomy Other HEENT Surgeries/Procedures: Bilateral cataract and glaucoma surgery with right eye on 06/25/18 in the left eye on 07/09/18. Multiple teeth extractions. Cardiovascular Surgical History: Reports: None. Denies: Varicose Respiratory Surgical History: Reports: Other (See Below). Denies: Thoracentesis Other Respiratory Surgeries/Procedures: Right-sided bronchoscopy on 04/09/18. GI Surgical History: Reports: Colonoscopy, EGD, Polypectomy, Other (See Below). Denies: Appendectomy, Cholecystectomy, Hernia, Abdominal, Hernia, Inguinal, Hernia Repair/Other Other GI Surgeries/Procedures: Rectal polypectomy on 09/02/14 and 04/26/16 with EGD and colonoscopy on those days. Previous colonoscopy on 01/11/05. Possible sigmoidoscopy on 11/06/1999 Female Surgical History: Reports: Tubal Ligation, Other (See Below). Denies : Section, D&C, Hysterectomy, Oophorectomy, Salpingo-Oophorectomy Other Female Surgeries/Procedures: Bilateral tubal ligation in 1979; no other female surgeries Endocrine Surgical History: Reports: None. Denies: Thyroid Biopsy Neurological Surgical History: Reports: None. Denies: C-Spine, Discectomy, Laminectomy, Lumbar Spine, Sacral Spine, Spinal Fusion, Thoracic Spine, Vertebroplasty Musculoskeletal Surgical History: Reports: None. Denies: Arthroscopic Procedure , Carpal Tunnel, Ganglion Cyst, Joint Replacement, ORIF, Shoulder Surgery Oncologic Surgical History: Reports: Other (See Below). 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 Dermatological Surgical History: Reports: None - Past Imaging History Past Imaging History: Reports: CAT Scan (CT of the chest on 06/06/18 and 03/27/18. ), DEXA Scan (01/02/13), Mammogram (Last mammogram on 03/01/17.), PET (Whole body PET scan on 03/18/17.), PFT (06/06/18.), Ultrasound (Left breast ultrasound on ), Venous Doppler (Left leg on 08/05/17.) Social & Family History - Family History HEENT: Reports: Glaucoma, Macular Degeneration, Other (See Below). Denies: Retinal Detachment Other HEENT Family History: Sister with glaucoma. Sisters 2 with macular degeneration. Cardiac: Reports: High Cholesterol, Other (See Below). Denies: Afib, AICD, Aneurysm, Arrhythmia, Blood Clots/VTE/DVT, CAD, Heart Failure, Hypertension, KS , Pacemaker, Syncope Other Cardiac Family History: Sisters 2 with hyperlipidemia. Respiratory: Reports: COPD, Other (See Below). Denies: Asthma, PE, Pneumothorax , Sleep Apnea Other Respiratory Family Hisory: Mother with history of COPD and tobacco use GI: Reports: Cholelithiasis, Other (See Below). Denies: Celiac Disease, Colon Polyps, GERD, GI bleed, Inflammatory Bowel Disease, Irritable Bowel Syndrome, Pancreatitis, PUD Other GI Family History: Mother with cholelithiasis. : Reports: None. Denies: Dialysis, Renal Calculus, Renal Disease/ Insufficiency OBGYN: Reports: None. Denies: Endometriosis, Recurrent Spontaneous Musculoskeletal: Reports: None. Denies: Gout, RA, SLE Neurological: Reports: Migraines, Seizure, Other (See Below). Denies: Alzheimers Disease, Cerebral Aneurysms, CVA, Dementia, MS, Parkinson's, TIA Other Neurological Family History: Sister with migraines. Sister with grand mal seizure disorder. Psychiatric: Reports: None. Denies: Abuse, Victim of, ADD, ADHD, Anxiety, Depression, Psych Hospitalization(s), PTSD, Suicide Attempt Endocrine/Metabolic: Reports: Diabetes, type II, IDDM, Other (See Below). Denies: Diabetes, Gestational, Diabetes, Type I, Diabetes Mellitus, Type 3c, Hypothyroidism Other Endocrine/Metabolic Family History: Sisters x 2 with IDDM. Hematologic: Reports: None. Denies: Anemia, SLE Immunologic: Reports: None. Denies: AIDS, HIV, SLE Dermatologic: Reports: None. Denies: Eczema, Psoriasis Oncologic: Reports: Leukemia, Liver, Other (See Below). Denies: Breast, Cervix , Colon, Hodgkin's Lymphoma, Lymphoma, Ovarian, Skin, Uterine Other Oncologic Family History: Father with fatal leukemia at age 65. Mother with fatal liver cancer at age 78. - Tobacco Use Smoking Status *Q: Never Smoker Tobacco Use Within Last Twelve Months: No Used Tobacco, but Quit: No Smoking Cessation Information Provided To Patient: No Second Hand Smoke Exposure: No Second Hand Smoke Education Provided: No - Caffeine Use Caffeine Use: Reports: Coffee (4 cups per week.). Denies: Energy Drinks, Soda, Tea - Alcohol Use Alcohol Use History: Yes Days Per Week of Alcohol Use: 0 Number of Drinks Per Day: 1 Number of Drinks Per Day Comment: Usually wine or beer for special occasions and holidays. No previous DWIs, problems with alcohol abuse, etc. Total Drinks Per Week: 0 Alcohol Use in Last Twelve Months: Yes - Recreational Drug Use Recreational Drug Use: No Drug Use in Last 12 Months: No Recreational Drug Type: Denies: Amphetamines (Speed), Cocaine, Heroin, Inhalants (Glues, Solvents, Aerosols), LSD (Acid), Marijuana/Hashish, Methamphetamine, Morphine, Oxycodone - Living Situation & Occupation Living situation: Reports: (1960, 3 children.), with Family () Occupation: Retired (Retired [employer] . 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 ED EXAM, GENERAL - Physical Exam Exam: See Below Exam Limited By: No Limitations General Appearance: Alert, WD/WN, No Apparent Distress Eye Exam: Bilateral Eye: EOMI, Normal Inspection (No nystagmus. Patient wears glasses), Other Ears: Normal External Exam, Normal Canal (Moderate cerumen in EACs bilaterally) , Hearing Grossly Normal, Normal TMs Nose: Normal Mucosa, No Blood, Clear Rhinorrhea Throat/Mouth: Normal Lips, Normal Gums, Normal Voice, No Airway Compromise. No : Normal Teeth (Multiple missing teeth with no evidence of acute caries), Normal Oropharynx (Trace erythema in the posterior pharynx with no pinpoint white exudates or peritonsillar abscess), Dysphagia, Perioral Cyanosis Head: Atraumatic, Normocephalic. No: Facial Swelling, Facial Tenderness, Sinus Tenderness Neck: Supple, Non-Tender, Full Range of Motion, Carotid Bruit (Mild bilateral carotid bruits versus transmitted heart sounds). No: Lymphadenopathy (L), Lymphadenopathy (R), Thyromegaly Respiratory/Chest: No Respiratory Distress, No Accessory Muscle Use, Chest Non- Tender, Rales (Moderate bilateral basilar rales), Rhonchi (Occasional diffuse bilateral). No: Wheezing, Pleural Rub, Retractions Cardiovascular: Normal Peripheral Pulses, Regular Rate, Rhythm, No Edema, No Gallop, No JVD, No Rub, Systolic Murmur (Mild 1/6 ANUEL of the aortic valve). No : Gallop/S3, Gallop/S4, Friction Rub Peripheral Pulses: 2+: Radial (L), Radial (R) GI/Abdominal: Normal Bowel Sounds, Soft, Non-Tender, No Organomegaly, No Distention, No Abnormal Bruit, No Mass. No: Guarding (Female) Exam: Deferred Rectal (Female) Exam: Deferred Back Exam: Full Range of Motion, Other (Mild kyphosis). No: CVA Tenderness (L) , CVA Tenderness (R), Muscle Spasm, Paraspinal Tenderness, Vertebral Tenderness Extremities: Normal Inspection, Normal Range of Motion, Non-Tender, No Pedal Edema, Normal Capillary Refill. No: Nelly's Sign Neurological: Alert, Oriented, CN II-XII Intact, Normal Cognition, Normal Gait, No Motor/Sensory Deficits Psychiatric: Normal Affect, Normal Mood Skin Exam: Warm, Dry, Intact, Normal Color, No Rash. No: Diaphoretic, Wound/ Incision Lymphatic: No Adenopathy Course - Vital Signs Last Recorded V/S: Last Vital Signs Temp 37.5 C 08/26/19 21:58 Pulse 92 08/26/19 21:58 Resp 12 08/26/19 21:58 BP 153/61 H 08/26/19 21:58 Pulse Ox 93 L 08/26/19 21:58 Vital Signs - 24 hr 08/26/19 21:58 Temperature [ 37.5 C Oral] Pulse, 92 Peripheral [ Right Pulse Oximetry] Respiratory 12 Rate Blood Pressure 153/61 H [Right Upper Arm] O2 Sat by Pulse 93 L Oximetry - Orders/Labs/Meds Orders: Active Orders 24 hr Category Date Time Status Communication Order [RC] ROUTINE Care 08/26/19 22:06 Active Oxygen Therapy, ED [RC] PRN Care 08/26/19 22:06 Active Pulse Oximetry [RC] CONTINUOUS Care 08/26/19 22:06 Active Up With Assistance [RC] ASDIRECTED Care 08/26/19 22:06 Active Chest 2V [CR] Stat Exams 08/26/19 22:06 Taken CULTURE BLOOD [BC] Stat Lab 08/26/19 22:30 Received CULTURE BLOOD [BC] Stat Lab 08/26/19 22:45 Received CULTURE SPUTUM + SMEAR [RM] Urgent Lab 08/26/19 22:06 Ordered CULTURE STREP A CONFIRMATION [RM] Stat Lab 08/26/19 22:10 Results CULTURE URINE [RM] Routine Lab 08/26/19 22:06 Ordered STREP SCRN A RAPID W CULT CONF [RM] Stat Lab 08/26/19 22:10 Results UA W/MICROSCOPIC [URIN] Stat Lab 08/26/19 22:06 Ordered Blood Culture x2 Reflex Set [OM.PC] Stat Oth 08/26/19 22:06 Ordered Obtain Past Medical Record [OM.PC] Stat Oth 08/26/19 22:06 Active Resuscitation Status Routine Resus Stat 08/26/19 22:06 Ordered Labs: Laboratory Tests 08/26/19 08/26/19 08/26/19 Range/Units 22:30 22:30 22:30 WBC 2.3 L (4.0-10.2) K/uL RBC 3.39 L (3.77-5.09) M/uL Hgb 10.9 L (11.7-15.5) g/dL Hct 33.9 L (34.0-46.0) % MCV 100.0 H (84.0-98.0) fL MCH 32.2 (28.2-33.3) pg MCHC 32.2 (31.7-36.0) g/dL RDW 14.6 H (11.2-14.1) % Plt Count 99 L (150-350) K/uL Neut % (Auto) 54.9 (45.0-80.0) % Lymph % (Auto) 28.8 (10.0-50.0) % [place] % (Auto) 15.0 H (2.0-14.0) % Eos % (Auto) 0.9 (0.0-5.0) % Baso % (Auto) 0.4 (0.0-2.0) % Neut # (Auto) 1.24 L (1.40-7.00) K/uL Lymph # (Auto) 0.65 (0.50-3.50) K/uL [place] # (Auto) 0.34 (0.00-1.00) K/uL Eos # (Auto) 0.02 (0.00-0.50) K/uL Baso # (Auto) 0.01 (0.00-0.20) K/uL PT 10.7 (9.5-12.0) SEC INR 1.0 Sodium 140 (136-145) mmol/L Potassium 3.4 L (3.5-5.1) mmol/L Chloride 103 (98-107) mmol/L Carbon Dioxide 22.2 (21.0-32.0) mmol/L BUN 17 (7-18) mg/dL Creatinine 0.97 (0.51-1.17) mg/dL Est Cr Clr Drug Dosing 45.47 mL/min Estimated GFR (MDRD) 56 mL/min Glucose 130 H (74-106) mg/dL Lactic Acid (0.4-2.0) mmol/L Calcium 8.7 (8.5-10.1) mg/dL Magnesium 1.4 L (1.8-2.4) mg/dL Total Bilirubin 0.8 (0.2-1.0) mg/dL AST 20 (15-37) U/L ALT 21 (12-78) U/L Alkaline Phosphatase 57 (46-116) IU/L Total Protein 7.6 (6.4-8.2) g/dL Albumin 3.5 (3.4-5.0) g/dL 08/26/19 Range/Units 22:30 WBC (4.0-10.2) K/uL RBC (3.77-5.09) M/uL Hgb (11.7-15.5) g/dL Hct (34.0-46.0) % MCV (84.0-98.0) fL MCH (28.2-33.3) pg MCHC (31.7-36.0) g/dL RDW (11.2-14.1) % Plt Count (150-350) K/uL Neut % (Auto) (45.0-80.0) % Lymph % (Auto) (10.0-50.0) % [place] % (Auto) (2.0-14.0) % Eos % (Auto) (0.0-5.0) % Baso % (Auto) (0.0-2.0) % Neut # (Auto) (1.40-7.00) K/uL Lymph # (Auto) (0.50-3.50) K/uL [place] # (Auto) (0.00-1.00) K/uL Eos # (Auto) (0.00-0.50) K/uL Baso # (Auto) (0.00-0.20) K/uL PT (9.5-12.0) SEC INR Sodium (136-145) mmol/L Potassium (3.5-5.1) mmol/L Chloride (98-107) mmol/L Carbon Dioxide (21.0-32.0) mmol/L BUN (7-18) mg/dL Creatinine (0.51-1.17) mg/dL Est Cr Clr Drug Dosing mL/min Estimated GFR (MDRD) mL/min Glucose (74-106) mg/dL Lactic Acid 1.9 (0.4-2.0) mmol/L Calcium (8.5-10.1) mg/dL Magnesium (1.8-2.4) mg/dL Total Bilirubin (0.2-1.0) mg/dL AST (15-37) U/L ALT (12-78) U/L Alkaline Phosphatase (46-116) IU/L Total Protein (6.4-8.2) g/dL Albumin (3.4-5.0) g/dL Microbiology 08/26/19 22:10 Influenza Type A Antigen Screen - Final Nasal, Left NEGATIVE INFLUENZA A VIRUS AG REFERENCE RANGE: NEGATIVE Influenza Type B Antigen Screen - Final NEGATIVE INFLUENZA B VIRUS AG REFERENCE RANGE: NEGATIVE 08/26/19 22:10 Group A Streptococcus Rapid Screen - Final Throat NEGATIVE STREP A SCREEN REFERENCE RANGE: NEGATIVE Meds: Medications Discontinued Medications Generic Name Dose Route Start Last Admin Trade Name Freq PRN Reason Stop Dose Admin Potassium Chloride 20 meq 08/26/19 23:17 08/26/19 23:24 Klor-Con M20 PO 08/26/19 23:18 20 meq ONETIME ONE Administration - Radiology Interpretation Free Text/Narrative:: Chest x-ray, PA and lateral, shows moderate COPD changes with mild atelectasis versus beginning pulmonary infiltrates in the right middle and left lower lobes with no cardiomegaly, CHF, pneumothorax, etc. Moderate aortic valve calcification with moderate osteoarthritic and osteoporotic changes in the thoracic spine. Additional mild kyphosis noted. Departure - Departure Time of Disposition: 23:30 Disposition: Home, Self-Care 01 Condition: Fair Clinical Impression: Anemia, Hypomagnesemia, COPD (chronic obstructive pulmonary disease), Hyponatremia, Hypokalemia, Hypoalbuminemia, Multiple myeloma, Osteoarthritis, Peptic reflux disease - Discharge Information *PRESCRIPTION DRUG MONITORING PROGRAM REVIEWED*: Not Applicable *COPY OF PRESCRIPTION DRUG MONITORING REPORT IN PATIENT PHYLLIS: Not Applicable Instructions: Viral Respiratory Infection, [id number] Referrals: Arianna Her NP [Primary Care Provider] - Forms: ED Department Discharge Additional Instructions: 1. Followup with your regular provider in 2 days as directed or reevaluation and recommended repeat CBC and basic metabolic panel. Bring these discharge instructions with you to that visit. 2. Tylenol 650 mg by mouth every 4 hours and/or OTC ibuprofen 2-3 tabs by mouth every 6 hours with food as directed./needed. You may stagger these medications for 48-72 hours only, which essentially means that you are receiving a pain medication about every 2 hours. 3. Encourage oral fluids including sports drinks with additional high potassium diet as discussed. 4. Notify this facility, if you do not hear from me by me in tomorrow after I have had a chance to talk with your oncologist as discussed 5. Immediately after this visit verify that your cellular telephone's voicemail has been activated and is empty. Also verify that your home telephone 's answering machine is operating properly and has space to receive messages. Note that it is sometimes necessary for us to be able to contact you at a later date to discuss your medical care. 6. Please remember that we are ALWAYS here for you and want to answer any questions you may have. Feel free to call the hospital any time and we call you back [place]. 7. Hygiene precautions as discussed, including wearing a mask, etc. Sepsis Event Note - Evaluation Sepsis Screening Result: Possible Sepsis Risk - Focused Exam Vital Signs: Vital Signs Temp Pulse Resp BP Pulse Ox 08/26/19 21:58 37.5 C 92 12 153/61 H 93 L Date Exam was Performed: 08/27/19 Time Exam was Performed: 07:23 - Problem List & Annotations (1) COPD (chronic obstructive pulmonary disease) SNOMED Code(s): 43134462 Code(s): J44.9 - CHRONIC OBSTRUCTIVE PULMONARY DISEASE, UNSPECIFIED Status : Acute Priority: High Annotation/Comment:: Probable viral bronchitis with no significant acute exacerbation. Cannot rule out possible beginning bronchopneumonia, however. Various therapeutic options were discussed with the patient and her daughter. The patient has been febrile for less than 12 hours with low threshold for initiating antibiotic therapy secondary to her leukopenia from her current chemotherapy. Note, however, that her chemotherapy was recently decreased to 5 mg daily/3 weeks on 1 week off basis in June 2019 by her history. Patient's last dose of chemotherapy was on 08/24. Her leukopenia appears to be at its baseline with avoidance of antibiotics secondary to her previous history of C. difficile colitis. I will call her heme oncologist, Dr. Griffith at [facility] in [place] tomorrow to update him concerning today's emergency room visit and obtain further recommendations at that time. Otherwise close follow-up by her regular provider as per discharge instructions. Qualifiers: COPD type: COPD with acute lower respiratory infection Qualified Code(s): J44.0 - Chronic obstructive pulmonary disease with (acute) lower respiratory infection (2) Multiple myeloma SNOMED Code(s): 008319847 Code(s): C90.00 - MULTIPLE MYELOMA NOT HAVING ACHIEVED REMISSION Status: Chronic Priority: High Annotation/Comment:: Currently under therapy as above. Telephone oncology consultation tomorrow as above with the patient and her daughter being in agreement with this treatment plan. Qualifiers: Multiple myeloma remission status: not in remission Qualified Code(s): C90.00 - Multiple myeloma not having achieved remission (3) Pancytopenia SNOMED Code(s): 056389257 Code(s): D61.818 - OTHER PANCYTOPENIA Status: Chronic Priority: Medium Annotation/Comment:: Secondary to her chemotherapy as above. Observe closely by her oncologist and regular provider as per discharge instructions. Patient does not wish to be hospitalized at this time. Hygiene/infection precautions were extensively discussed with additional masks provided. Note that she did receive her influenza booster this season (4) Hypokalemia SNOMED Code(s): 89007436 Code(s): E87.6 - HYPOKALEMIA Status: Chronic Priority: Medium Annotation/Comment:: Mild hypokalemia chronic in nature with patient not on any medications as a contributing cause. Continue to encourage oral sports drinks and high potassium diet as discussed. One dose of potassium chloride given in the emergency room. Observe closely by regular provider with follow-up blood work in 2 days as per discharge instructions. (5) Hyponatremia SNOMED Code(s): 90168767 Code(s): E87.1 - HYPO-OSMOLALITY AND HYPONATREMIA Status: Acute Priority : Medium Onset Date: 07/30/18 Annotation/Comment:: Chronic. Observe for now. Sports drinks as above. (6) Hypoalbuminemia SNOMED Code(s): 870071683 Code(s): E88.09 - [facility] DISORDERS OF PLASMA-PROTEIN METABOLISM, NEC Status: Chronic Priority: Medium Onset Date: 07/30/18 Annotation/Comment:: Chronic. 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 Observe closely for now. Consider her IV magnesium sulfate infusions pending on her clinical course. (8) Osteoarthritis SNOMED Code(s): 201794555 Code(s): M19.90 - UNSPECIFIED OSTEOARTHRITIS, UNSPECIFIED SITE Status: Chronic Priority: Medium Annotation/Comment:: Stable by history Qualifiers: Osteoarthritis location: unspecified site Osteoarthritis type: primary Qualified Code(s): M19.91 - Primary osteoarthritis, unspecified site (9) Peptic reflux disease SNOMED Code(s): 435847492 Code(s): K21.9 - GASTRO-ESOPHAGEAL REFLUX DISEASE WITHOUT ESOPHAGITIS Status: Chronic Priority: Medium Annotation/Comment:: Stable by history. - Problem List Review Problem List Initiated/Reviewed/Updated: Yes - My Orders Last 24 Hours: My Active Orders 08/26/19 22:06 Communication Order [RC] ROUTINE Oxygen Therapy, ED [RC] PRN Pulse Oximetry [RC] CONTINUOUS Up With Assistance [RC] ASDIRECTED Chest 2V [CR] Stat CULTURE SPUTUM + SMEAR [RM] Urgent CULTURE URINE [RM] Routine UA W/MICROSCOPIC [URIN] Stat Blood Culture x2 Reflex Set [OM.PC] Stat Obtain Past Medical Record [OM.PC] Stat Resuscitation Status Routine 08/26/19 22:10 CULTURE STREP A CONFIRMATION [RM] Stat STREP SCRN A RAPID W CULT CONF [RM] Stat 08/26/19 22:30 CULTURE BLOOD [BC] Stat 08/26/19 22:45 CULTURE BLOOD [BC] Stat - Assessment/Plan Last 24 Hours: My Active Orders 08/26/19 22:06 Communication Order [RC] ROUTINE Oxygen Therapy, ED [RC] PRN Pulse Oximetry [RC] CONTINUOUS Up With Assistance [RC] ASDIRECTED Chest 2V [CR] Stat CULTURE SPUTUM + SMEAR [RM] Urgent CULTURE URINE [RM] Routine UA W/MICROSCOPIC [URIN] Stat Blood Culture x2 Reflex Set [OM.PC] Stat Obtain Past Medical Record [OM.PC] Stat Resuscitation Status Routine 08/26/19 22:10 CULTURE STREP A CONFIRMATION [RM] Stat STREP SCRN A RAPID W CULT CONF [RM] Stat 08/26/19 22:30 CULTURE BLOOD [BC] Stat 08/26/19 22:45 CULTURE BLOOD [BC] Stat Assessment:: As above Plan: As above. Extensive precautions were given to the patient and her daughter, who are in agreement with the treatment plan. See Patient Instructions for further treatment and plan.
[2019-08-26] MEDS ORDERED: Potassium Chloride 20 MEQ Tab.ER PO ONE (23:17)
== END 2019-08-26 23:30 | disposition home or self-care (01) ==
LOC: LL.ED 21:43
DX: D64.9 Anemia, unspecified (principal); E83.42 Hypomagnesemia; E87.1 Hypo-osmolality and hyponatremia; E87.6 Hypokalemia; E88.09 Other disorders of plasma-protein metabolism, not elsewhere classified; C90.00 Multiple myeloma not having achieved remission; M19.90 Unspecified osteoarthritis, unspecified site; K21.9 Gastro-esophageal reflux disease without esophagitis; J44.9 Chronic obstructive pulmonary disease, unspecified; I50.9 Heart failure, unspecified; Z79.82 Long term (current) use of aspirin; Z79.51 Long term (current) use of inhaled steroids; Z79.899 Other long term (current) drug therapy
CPT/HCPCS: 36415; 71046; 80053; 83605; 83735; 85025; 85610; 87040; 87081; 87430; 87804; 99284; A9270

== ENCOUNTER 2022-08-16 07:00 | Day surgery (SDC) | payer MEDICARE, BC ==
[~2022-08-16 07:00] MED LIST: Sodium Chloride 0.9% 10 ML Syringe FLUSH PRN
[2022-08-16] MEDS: Lactated Ringers 1,000 ML IV SCH (07:20)
[2022-08-16] MEDS ORDERED: Midazolam 1 MG/ML 2 ML SDV ONE (07:29)
[2022-08-16] MEDS ORDERED: Propofol 200 MG/20 ML SDV ONE (07:29)
[2022-08-16 16:41] VITALS: BP 148/74; PULSE 68
== END 2022-08-16 10:10 | disposition home or self-care (01) ==
LOC: LL.SDS 07:00
PROVIDERS: ATTEND Surgery
DX: R19.5 Other fecal abnormalities (principal); D12.3 Benign neoplasm of transverse colon; K57.30 Diverticulosis of large intestine without perforation or abscess without bleeding; D68.4 Acquired coagulation factor deficiency; J44.9 Chronic obstructive pulmonary disease, unspecified; K21.9 Gastro-esophageal reflux disease without esophagitis; Z86.010 Personal history of colon polyps; Z79.899 Other long term (current) drug therapy; Z98.890 Other specified postprocedural states
CPT/HCPCS: J2250; J2704; J7120

== ENCOUNTER 2022-09-09 14:17 | Inpatient (IN) | payer MEDICARE, BC ==
[2022-09-09] MEDS: traMADol 50 MG Tab PO PRN (16:42)
[2022-09-09] MEDS ORDERED: guaiFENesin/Dextromethorphan 100-10 MG/5 ML Soln 10 ML Cup PO PRN (17:55)
[2022-09-09] MEDS: TIMOLOL MALEATE 0.25% EYELF SCH (18:28)
[2022-09-09] MEDS: Montelukast 10 MG Tab PO SCH (19:22)
[2022-09-09] MEDS: Cephalexin 500 MG Cap PO SCH (20:39)
[2022-09-10] MEDS ORDERED: Non-Formulary Medication 1 Each (Psyllium [Metamucil] 0.52 GM Cap) PO SCH (08:00)
[2022-09-10] MEDS: traMADol 50 MG Tab PO PRN ×2 (09:37→21:13)
[2022-09-10] MEDS: Losartan 50 MG Tab PO SCH (09:40)
[2022-09-10] MEDS: Lactobacillus Rhamnosus GG (Probiotic) Cap PO SCH ×3 (09:40→17:59)
[2022-09-10] MEDS: Pantoprazole 40 MG Tab.CR PO SCH ×2 (09:40→09:45)
[2022-09-10] MEDS: Cephalexin 500 MG Cap PO SCH ×4 (09:40→21:13)
[2022-09-10] MEDS: Calcium Carbonate/Vitamin D3 1500 MG-400 Units Tab PO SCH (09:46)
[2022-09-10] MEDS: TIMOLOL MALEATE 0.25% EYELF SCH (09:46)
[2022-09-10] MEDS ORDERED: Polyvinyl Alcohol 1.4% Ophth Soln 15 ML Bottle EYEBOTH PRN (10:45)
[2022-09-10] MEDS ORDERED: Temazepam 15 MG Cap PO PRN (13:11)
[2022-09-10] MEDS: FLUTICASONE INH SCH ×3 (13:19→18:00)
[2022-09-10] MEDS: SALMETEROL INH SCH ×3 (13:19→18:00)
[2022-09-10] MEDS: Acetaminophen 325 MG Tab PO PRN (16:11)
[2022-09-10] MEDS: CALCIUM POLYCARBOPHIL 625 MG PO SCH (17:59)
[2022-09-10] MEDS: TIMOLOL MALEATE 0.25% EYEBOTH SCH (18:00)
[2022-09-10] MEDS: Loperamide 2 MG Tab PO PRN (18:04)
[2022-09-10] MEDS: Montelukast 10 MG Tab PO SCH (19:20)
[2022-09-11] MEDS: Pantoprazole 40 MG Tab.CR PO SCH (06:53)
[2022-09-11] MEDS: Cephalexin 500 MG Cap PO SCH ×3 (06:53→21:44)
[2022-09-11] MEDS: TIMOLOL MALEATE 0.25% EYEBOTH SCH ×2 (07:32→17:15)
[2022-09-11] MEDS: FLUTICASONE INH SCH ×2 (07:33→17:15)
[2022-09-11] MEDS: Losartan 50 MG Tab PO SCH (07:33)
[2022-09-11] MEDS: CALCIUM POLYCARBOPHIL 625 MG PO SCH (07:33)
[2022-09-11] MEDS: SALMETEROL INH SCH ×2 (07:33→17:15)
[2022-09-11] MEDS: Calcium Carbonate/Vitamin D3 1500 MG-400 Units Tab PO SCH (07:33)
[2022-09-11] MEDS: Lactobacillus Rhamnosus GG (Probiotic) Cap PO SCH ×2 (07:34→17:14)
[2022-09-11] MEDS: Cholecalciferol (Vitamin D3) 25 MCG Tab PO SCH (07:34)
[2022-09-11] MEDS: traMADol 50 MG Tab PO PRN ×3 (09:23→21:44)
[2022-09-11] MEDS: Loperamide 2 MG Tab PO PRN (09:25)
[2022-09-11] MEDS: Acetaminophen 325 MG Tab PO PRN (12:16)
[2022-09-11] MEDS: Montelukast 10 MG Tab PO SCH (19:46)
[2022-09-12] MEDS: Cephalexin 500 MG Cap PO SCH ×3 (05:26→21:34)
[2022-09-12] MEDS: Lactobacillus Rhamnosus GG (Probiotic) Cap PO SCH ×2 (07:25→17:05)
[2022-09-12] MEDS: Pantoprazole 40 MG Tab.CR PO SCH (07:25)
[2022-09-12] MEDS: Losartan 50 MG Tab PO SCH (07:26)
[2022-09-12] MEDS: TIMOLOL MALEATE 0.25% EYEBOTH SCH ×2 (07:26→17:04)
[2022-09-12] MEDS: Cholecalciferol (Vitamin D3) 25 MCG Tab PO SCH (07:26)
[2022-09-12] MEDS: Calcium Carbonate/Vitamin D3 1500 MG-400 Units Tab PO SCH (07:26)
[2022-09-12] MEDS: SALMETEROL INH SCH ×2 (07:27→17:05)
[2022-09-12] MEDS: CALCIUM POLYCARBOPHIL 625 MG PO SCH (07:27)
[2022-09-12] MEDS: FLUTICASONE INH SCH ×2 (07:27→17:05)
[2022-09-12] MEDS: Loperamide 2 MG Tab PO PRN (07:34)
[2022-09-12] MEDS: traMADol 50 MG Tab PO PRN ×3 (07:57→21:34)
[2022-09-12] MEDS: Montelukast 10 MG Tab PO SCH (19:04)
[2022-09-13] MEDS: Cephalexin 500 MG Cap PO SCH ×3 (06:06→22:05)
[2022-09-13] MEDS: TIMOLOL MALEATE 0.25% EYEBOTH SCH ×2 (07:39→17:04)
[2022-09-13] MEDS: CALCIUM POLYCARBOPHIL 625 MG PO SCH (07:40)
[2022-09-13] MEDS: Cholecalciferol (Vitamin D3) 25 MCG Tab PO SCH (07:40)
[2022-09-13] MEDS: SALMETEROL INH SCH ×2 (07:40→19:52)
[2022-09-13] MEDS: FLUTICASONE INH SCH ×2 (07:40→19:52)
[2022-09-13] MEDS: Pantoprazole 40 MG Tab.CR PO SCH (07:41)
[2022-09-13] MEDS: Losartan 50 MG Tab PO SCH (07:41)
[2022-09-13] MEDS: Calcium Carbonate/Vitamin D3 1500 MG-400 Units Tab PO SCH (07:41)
[2022-09-13] MEDS: Lactobacillus Rhamnosus GG (Probiotic) Cap PO SCH ×2 (07:41→17:04)
[2022-09-13] MEDS: traMADol 50 MG Tab PO PRN ×2 (09:25→22:05)
[2022-09-13] MEDS: Acetaminophen 325 MG Tab PO PRN ×2 (13:22→17:43)
[2022-09-13] MEDS: Loperamide 2 MG Tab PO PRN (13:23)
[2022-09-13] MEDS: Furosemide 20 MG Tab PO SCH (13:23)
[2022-09-13] MEDS: Montelukast 10 MG Tab PO SCH (19:52)
[2022-09-14] MEDS: Cephalexin 500 MG Cap PO SCH ×2 (05:40→13:06)
[2022-09-14] MEDS: Lactobacillus Rhamnosus GG (Probiotic) Cap PO SCH (07:45)
[2022-09-14] MEDS: Losartan 50 MG Tab PO SCH (07:45)
[2022-09-14] MEDS: Pantoprazole 40 MG Tab.CR PO SCH (07:45)
[2022-09-14] MEDS: Calcium Carbonate/Vitamin D3 1500 MG-400 Units Tab PO SCH (07:45)
[2022-09-14] MEDS: Furosemide 20 MG Tab PO SCH (07:45)
[2022-09-14] MEDS: TIMOLOL MALEATE 0.25% EYEBOTH SCH (07:48)
[2022-09-14] MEDS: SALMETEROL INH SCH (07:48)
[2022-09-14] MEDS: Cholecalciferol (Vitamin D3) 25 MCG Tab PO SCH (07:48)
[2022-09-14] MEDS: FLUTICASONE INH SCH (07:48)
[2022-09-14] MEDS: CALCIUM POLYCARBOPHIL 625 MG PO SCH (07:49)
[2022-09-14] MEDS: traMADol 50 MG Tab PO PRN (08:03)
[2022-09-14 13:21] VITALS: BP 142/82; PULSE 84
== END 2022-09-14 13:18 | disposition home or self-care (01) | DRG 948 ==
LOC: UNDOADMIN 14:17 → LL.MS 14:17
PROVIDERS: ADMIT Emergency Medicine; ATTEND Nurse Practitioner Family
DX: R53.81 Other malaise (principal); D84.9 Immunodeficiency, unspecified; J90 Pleural effusion, not elsewhere classified; S22.42XD Multiple fractures of ribs, left side, subsequent encounter for fracture with routine healing; I10 Essential (primary) hypertension; J44.9 Chronic obstructive pulmonary disease, unspecified; K58.0 Irritable bowel syndrome with diarrhea; K21.9 Gastro-esophageal reflux disease without esophagitis; I25.10 Atherosclerotic heart disease of native coronary artery without angina pectoris; I11.0 Hypertensive heart disease with heart failure; I50.9 Heart failure, unspecified; M54.9 Dorsalgia, unspecified; M54.2 Cervicalgia; G89.29 Other chronic pain; M81.0 Age-related osteoporosis without current pathological fracture; D64.9 Anemia, unspecified; H40.9 Unspecified glaucoma; Z79.899 Other long term (current) drug therapy
CPT/HCPCS: 71046; 97110-GO; 97110-GP; 97161-GP; 97165-GO; 97530-GP; 97535-GO; A9270-GY

== ENCOUNTER 2022-09-21 14:21 | Inpatient (IN) | payer MEDICARE, BC ==
[2022-09-21] MEDS ORDERED: Iopamidol 755 Mg/ML 100 ML Bottle IVPUSH STA (15:45)
[2022-09-21] MEDS: Azithromycin 500 MG in Sodium Chloride 0.9% 250 ML IV SCH (20:04)
[2022-09-21] MEDS: Sodium Chloride 0.9% 10 ML Syringe FLUSH PRN (20:06)
[2022-09-22] MEDS: Furosemide 20 MG/2 ML VIAL IVPUSH SCH (07:39)
[2022-09-22] MEDS: Sodium Chloride 0.9% 10 ML Syringe FLUSH PRN ×2 (07:44→17:51)
[2022-09-22] MEDS ORDERED: Losartan 50 MG Tab PO ONE (08:00)
[2022-09-22] MEDS: Azithromycin 500 MG in Sodium Chloride 0.9% 250 ML IV SCH (17:46)
[2022-09-22] MEDS: Psyllium Husk Powder Sugar Free 5.85 GM Packet PO SCH (19:33)
[2022-09-22] MEDS: Lactobacillus Rhamnosus GG (Probiotic) Cap PO SCH (19:33)
[2022-09-22] MEDS: Loperamide 2 MG Tab PO PRN (19:34)
[2022-09-23] MEDS: Psyllium Husk Powder Sugar Free 5.85 GM Packet PO SCH (07:39)
[2022-09-23] MEDS: Lactobacillus Rhamnosus GG (Probiotic) Cap PO SCH (07:45)
[2022-09-23] MEDS: Furosemide 20 MG/2 ML VIAL IVPUSH SCH (07:45)
[2022-09-23] MEDS: Sodium Chloride 0.9% 10 ML Syringe FLUSH PRN ×4 (07:45→17:11)
[2022-09-23 07:55] LABS: ANION GAP 9.2 meq/L (7-15)
[2022-09-23] MEDS: metroNIDAZOLE/Normal Saline 500 MG in Premix Bag 1 BAG IV SCH ×2 (12:25→19:52)
[2022-09-23] MEDS: methylPREDNISolone Sodium Succinate 40 MG/1 ML SDV IVPUSH SCH (13:27)
[2022-09-23] MEDS: Azithromycin 500 MG in Sodium Chloride 0.9% 250 ML IV SCH (17:10)
[2022-09-23] MEDS: Losartan 50 MG Tab PO SCH (18:29)
[2022-09-24] MEDS: metroNIDAZOLE/Normal Saline 500 MG in Premix Bag 1 BAG IV SCH ×3 (03:16→19:36)
[2022-09-24] MEDS: Sodium Chloride 0.9% 10 ML Syringe FLUSH PRN ×5 (03:17→19:38)
[2022-09-24] MEDS: methylPREDNISolone Sodium Succinate 40 MG/1 ML SDV IVPUSH SCH (08:52)
[2022-09-24] MEDS: Lactobacillus Rhamnosus GG (Probiotic) Cap PO SCH (08:52)
[2022-09-24] MEDS: Losartan 50 MG Tab PO SCH (08:52)
[2022-09-24] MEDS: Furosemide 40 MG/4 ML VIAL IVPUSH SCH (08:53)
[2022-09-24] MEDS: Psyllium Husk Powder Sugar Free 5.85 GM Packet PO SCH (08:53)
[2022-09-24 08:56] LABS: ANION GAP 9.1 meq/L (7-15)
[2022-09-24] MEDS: Loperamide 2 MG Tab PO PRN (09:51)
[2022-09-24] MEDS ORDERED: Melatonin 3 MG Tab PO PRN (19:31)
[2022-09-25] MEDS: Sodium Chloride 0.9% 10 ML Syringe FLUSH PRN (04:12)
[2022-09-25] MEDS: metroNIDAZOLE/Normal Saline 500 MG in Premix Bag 1 BAG IV SCH (04:12)
[2022-09-25 07:40] LABS: ANION GAP 11.7 meq/L (7-15)
[2022-09-25] MEDS: Losartan 50 MG Tab PO SCH (07:59)
[2022-09-25] MEDS: Lactobacillus Rhamnosus GG (Probiotic) Cap PO SCH (07:59)
[2022-09-25] MEDS: Psyllium Husk Powder Sugar Free 5.85 GM Packet PO SCH (08:03)
[2022-09-25] MEDS: Furosemide 40 MG/4 ML VIAL IVPUSH SCH (08:03)
[2022-09-25] MEDS: methylPREDNISolone Sodium Succinate 40 MG/1 ML SDV IVPUSH SCH (08:03)
[2022-09-25] MEDS ORDERED: metroNIDAZOLE 500 MG Tab PO SCH (12:00)
[2022-09-25 12:58] VITALS: BP 148/69; PULSE 87
== END 2022-09-25 16:57 | disposition home health service (06) | DRG 178 ==
LOC: EDSTATUS 15:11 → INTOOBSV 15:12 → OBSVTOIN 15:12 → LL.MS 15:12 → UNDOADMOB 15:12
PROVIDERS: ADMIT Physician Assistant; ATTEND Physician Assistant
DX: J69.0 Pneumonitis due to inhalation of food and vomit (principal); C90.00 Multiple myeloma not having achieved remission; J44.0 Chronic obstructive pulmonary disease with (acute) lower respiratory infection; J90 Pleural effusion, not elsewhere classified; D84.9 Immunodeficiency, unspecified; I48.91 Unspecified atrial fibrillation; S22.42XD Multiple fractures of ribs, left side, subsequent encounter for fracture with routine healing; S27.1XXS Traumatic hemothorax, sequela; D64.9 Anemia, unspecified; D69.6 Thrombocytopenia, unspecified; K21.9 Gastro-esophageal reflux disease without esophagitis; E88.09 Other disorders of plasma-protein metabolism, not elsewhere classified; I25.10 Atherosclerotic heart disease of native coronary artery without angina pectoris; I11.0 Hypertensive heart disease with heart failure; I50.9 Heart failure, unspecified; K57.30 Diverticulosis of large intestine without perforation or abscess without bleeding; M54.9 Dorsalgia, unspecified; M54.2 Cervicalgia; G89.29 Other chronic pain; M81.0 Age-related osteoporosis without current pathological fracture; Z99.81 Dependence on supplemental oxygen; Z98.41 Cataract extraction status, right eye; Z98.42 Cataract extraction status, left eye; Z79.899 Other long term (current) drug therapy
CPT/HCPCS: 36415; 71046; 71275; 80048; 80053; 81003; 83735; 83880; 84484; 85025; 86140; 93005; 93306; A9270-GY; J0456; J1940; J2920; J3490; J7050; Q9967

== ENCOUNTER 2023-11-29 11:48 | Emergency (ER) | payer MEDICARE, BC ==
[2023-11-29] MEDS: cloNIDine 0.1 MG Tab PO ONE (12:11)
[2023-11-29 12:12] LABS: BASOPHILS ABSOLUTE AUTO 0.03 K/uL (0.00-0.20); BASOPHILS PERCENT AUTO 0.4 % (0.0-2.0); EOSINOPHILS PERCENT AUTO 1.4 % (0.0-5.0); HEMATOCRIT 35.5 % (34.0-46.0); HEMOGLOBIN 11.9 g/dL (11.7-15.5); LYMPHOCYTES ABSOLUTE AUTO 1.68 K/uL (0.50-3.50); MEAN CORPUSCULAR HEMOGLOBIN 30.6 pg (28.2-33.3); MEAN CORPUSCULAR HGB CONC 33.5 g/dL (31.7-36.0); MEAN CORPUSCULAR VOLUME 91.3 fL (84.0-98.0); MONOCYTES ABSOLUTE AUTO 0.58 K/uL (0.00-1.00); MONOCYTES PERCENT AUTO 7.9 % (2.0-14.0); NEUTROPHILS ABSOLUTE AUTO 4.91 K/uL (1.40-7.00); NEUTROPHILS PERCENT AUTO 67.3 % (45.0-80.0); PLATELET COUNT,PLT 194 K/uL (150-350); RED BLOOD CELL COUNT 3.89 M/uL (3.77-5.09); RED CELL DISTRIBUTION WIDTH 13.9 % (11.2-14.1); WHITE BLOOD CELL COUNT,WBC 7.3 K/uL (4.0-10.2)
[2023-11-29 12:35] LABS: ALANINE AMINOTRANSFERASE,ALT 21 U/L (12-78); ALBUMIN 3.4 g/dL (3.4-5.0); ALKALINE PHOSPHATASE 75 IU/L (46-116); ANION GAP 13.4 meq/L (7-15); ASPARTATE AMNIOTRANSFERASE,AST 18 U/L (15-37); BILIRUBIN TOTAL 0.5 mg/dL (0.2-1.0); BLOOD UREA NITROGEN,BUN 11 mg/dL (7-18); CALCIUM 8.6 mg/dL (8.5-10.1); CARBON DIOXIDE,CO2 24.7 mmol/L (21.0-32.0); CHLORIDE,CL 98 mmol/L (98-107); CREATININE 1.02 mg/dL (0.51-1.17); ESTIMATED GFR 55 mL/min (>=60); GLUCOSE RANDOM 98 mg/dL (70-99); MAGNESIUM 1.7 mg/dL (1.8-2.4); POTASSIUM,K 4.1 mmol/L (3.5-5.1); PRO B-TYPE NATRIUR PEPT,BNPPRO 469 pg/mL (0-125); PROTEIN TOTAL,TP 7.5 g/dL (6.4-8.2); SODIUM,NA 132 mmol/L (136-145)
[2023-11-29] MEDS ORDERED: Sodium Chloride 0.9% 10 ML Syringe FLUSH PRN (12:54)
[2023-11-29 14:03] VITALS: BP 141/63; PULSE 59
== END 2023-11-29 14:11 | disposition home or self-care (01) ==
LOC: LL.ED 11:48
DX: I16.0 Hypertensive urgency (principal); I11.0 Hypertensive heart disease with heart failure; E83.42 Hypomagnesemia; I50.9 Heart failure, unspecified; I25.10 Atherosclerotic heart disease of native coronary artery without angina pectoris; K21.9 Gastro-esophageal reflux disease without esophagitis; Z79.899 Other long term (current) drug therapy
CPT/HCPCS: 36415; 71046; 80053; 83735; 83880; 84484; 85025; 93005; 96365; 99284-25; A9270-GY; J3475